=== PATIENT | female | born 1935 | race African-American/Black ===

== ENCOUNTER 2018-10-02 10:07 | Inpatient (IN) | payer OTHER ==
[2018-10-02 12:10] LABS: BASO % 0.5 % (0-2.0); EOS % 0.4 % (0-4.5); HEMATOCRIT 33.3 % (32.4-45.2); HEMOGLOBIN 11.9 GM/dL (10.7-15.3); LYMPH % 12.5 % (8-40); MCH 29.7 pg (25.7-33.7); MCHC 35.9 g/dl (32.0-36.0); MEAN CELL VOLUME 82.7 fl (80-96); MEAN PLT VOLUME 6.8 fl (7.5-11.1); MONO % 5.2 % (3.8-10.2); NEUT % 81.4 % (42.8-82.8); PLATELET COUNT 250 K/MM3 (134-434); RBC 4.02 M/mm3 (3.60-5.2); RDW 13.3 % (11.6-15.6); WHITE BLOOD COUNT 4.8 K/mm3 (4.0-10.0)
[2018-10-02 12:13] LABS: VENOUS PC02 32.4 mmHg (38-52); VENOUS PH 7.49 (7.32-7.42); VENOUS PO2 20.2 mmHg (28-48)
[2018-10-02 12:24] LABS: URINE APPEARANCE SLCLOUDY; URINE BILIRUBIN NEGATIVE (<2.0 mg/dL); URINE COLOR LTYELLOW; URINE GLUCOSE (UA) 3+ (NEGATIVE); URINE KETONE NEGATIVE (NEGATIVE); URINE LEUK ESTERASE 1+ (NEGATIVE); URINE NITRITE NEGATIVE (NEGATIVE); URINE PROTEIN NEGATIVE (NEGATIVE); URINE UROBILINOGEN NEGATIVE mg/dL (0.2-1.0)
[2018-10-02 12:36] LABS: EPI CELLS RARE /HPF (FEW); URINE BACTERIA FEW /hpf (NONE SEEN); URINE MUCUS RARE
--- NOTE | 2018-10-02 13:04 | PDOC ---
History of Present Illness <Michelle Tom - Last Filed: 10/02/18 14:43> - History of Present Illness Initial Comments: 10/02/18 12:55 83 F with h/o HTN, colon CA, DM, presenting to ED with generalized malaise and SOB. Pt states that she started to feel unwell last night. Endorses a "bad" feeling all over but denies any focal pain. Denies N/V. Denies diarrhea/ constipation. Denies CP. She does endorse feeling SOB at times. Denies SOB at rest currently. Denies cough. Denies orthopnea. Denies F/C. Denies any new leg swelling. Per NH, pt's sugars have been poorly controlled recently. She was switched from Lantus to Januvia, and for the past week she has been running in the 300s. <Henri Jalloh - Last Filed: 10/02/18 17:19> - General Chief Complaint: Weakness Stated Complaint: WEAKNESS Time Seen by Provider: 10/02/18 10:13 Past History <Michelle Tom - Last Filed: 10/02/18 14:43> - Past Medical History Cancer: Yes (RECTAL MASS;LIVER METS;GASTRIC NEOPLASM) COPD: No Diabetes: Yes Disorders: Yes (COLON POLYPS) HTN: Yes Thyroid Disease: Yes (THYROID NODULE) - Surgical History Abdominal Surgery: Yes (COLON ANASTOMOSIS) Cholecystectomy: Yes - Suicide/Smoking/Psychosocial Hx Smoking History: Never smoked Hx Alcohol Use: No Drug/Substance Use Hx: No Substance Use Type: None <Henri Jalloh - Last Filed: 10/02/18 17:19> - Past Medical History Allergies/Adverse Reactions: Allergies Allergy/AdvReac Type Severity Reaction Status Date / Time No Known Allergies Allergy Verified 10/02/18 10:18 Home Medications: Ambulatory Orders Furosemide [Lasix -] 40 mg PO DAILY 06/17/16 Triamterene/Hydrochlorothiazid [Triamterene-Hctz 37.5-25 mg Cp] 1 each PO DAILY 06/17/16 Amlodipine Besylate 10 mg PO DAILY 10/02/18 Aspirin 81 mg PO DAILY 10/02/18 Glimepiride 4 mg PO DAILY 10/02/18 Losartan Potassium 100 mg PO DAILY 10/02/18 Sitagliptin Phosphate [Januvia] 50 mg PO DAILY 10/02/18 Review of Systems - Review of Systems Comments:: 10/02/18 12:57 GENERAL/CONSTITUTIONAL: + General malaise, No fever or chills. HEAD, EYES, EARS, NOSE AND THROAT: No change in vision. No ear pain or discharge. No sore throat. CARDIOVASCULAR: No chest pain, no loss of consciousness RESPIRATORY: +SOB, No cough, wheezing, or hemoptysis. GASTROINTESTINAL: No nausea, vomiting, diarrhea or constipation. GENITOURINARY: No dysuria, frequency, or change in urination. MUSCULOSKELETAL: No joint or muscle swelling or pain. No neck or back pain. SKIN: No rash NEUROLOGIC: No vertigo, no change in strength/sensation. ENDOCRINE: No increased thirst. No abnormal weight change. HEMATOLOGIC/LYMPHATIC: No anemia, easy bleeding, or history of blood clots. ALLERGIC/IMMUNOLOGIC: No hives or skin allergy. <Henri Jalloh - Last Filed: 10/02/18 17:19> *Physical Exam - Vital Signs Last Vital Signs Temp Pulse Resp BP Pulse Ox 97.9 F 66 22 H 154/47 L 99 10/02/18 10:07 10/02/18 10:07 10/02/18 10:07 10/02/18 10:07 10/02/18 10:23 <Michelle Tom - Last Filed: 10/02/18 14:43> - Vital Signs Last Vital Signs Temp Pulse Resp BP Pulse Ox 97.9 F 66 22 H 154/47 L 99 10/02/18 10:07 10/02/18 10:07 10/02/18 10:07 10/02/18 10:07 10/02/18 10:23 - Physical Exam Comments: 10/02/18 12:57 "GENERAL: Awake, alert, and fully oriented, in no acute distress. HEAD: No signs of trauma EYES: PERRLA, EOMI, sclera anicteric, conjunctiva clear ENT: Auricles normal inspection, hearing grossly normal, nares patent, oropharynx clear without exudates. Moist mucosa NECK: Nontender, no stepoffs, Normal ROM, supple, no lymphadenopathy, JVD, or masses LUNGS: Breath sounds equal, clear to auscultation bilaterally. No wheezes, and no crackles HEART: Regular rate and rhythm, normal S1 and S2, no murmurs, rubs or gallops ABDOMEN: Soft, nontender, normoactive bowel sounds. No guarding, no rebound. No masses EXTREMITIES: Normal range of motion, no edema. No clubbing or cyanosis. No cords, erythema, or tenderness NEUROLOGICAL: Cranial nerves II through XII intact. 5/5 strength and sensation in all extremities, Normal speech, normal gait, normal cerebellar function SKIN: Warm, Dry, normal turgor, no rashes or lesions noted. <Henri Jalloh - Last Filed: 10/02/18 17:19> Moderate Sedation - Procedure Monitoring Vital Signs: Procedure Monitoring Vital Signs Temperature 97.9 F 10/02/18 10:07 Pulse Rate 66 10/02/18 10:07 Respiratory Rate 22 H 10/02/18 10:07 Blood Pressure 154/47 L 10/02/18 10:07 O2 Sat by Pulse Oximetry (%) 99 10/02/18 10:23 <Michelle Tom - Last Filed: 10/02/18 14:43> - Procedure Monitoring Vital Signs: Procedure Monitoring Vital Signs Temperature 97.9 F 10/02/18 10:07 Pulse Rate 66 10/02/18 10:07 Respiratory Rate 22 H 10/02/18 10:07 Blood Pressure 154/47 L 10/02/18 10:07 O2 Sat by Pulse Oximetry (%) 99 10/02/18 10:23 <YeimiHenri - Last Filed: 10/02/18 17:19> Heart Score/ECG Review - History History: Slightly suspicious - Electrocardiogram EKG: Normal - Age Age: >/= 65 - Risk Factors Risk Factors Heart Score: Yes Hx Hypertension, Yes Hx Diabetes, Yes Hx Obesity Based on the list above the patient has:: >/=3 risk factors or Hx atherosclerotic disease - Troponin Troponin: </= normal limit - Score Heart Score - Total: 4 - ECG Impressions Comment:: 10/02/18 13:13 NSR, no JYOTHI/STDs, no TWIs, intervals wnl, rate 66 <Henri Jalloh - Last Filed: 10/02/18 17:19> ED Treatment Course - LABORATORY CBC & Chemistry Diagram: 10/02/18 11:47 10/02/18 11:47 - ADDITIONAL ORDERS Additional order review: Laboratory Results 10/02/18 10/02/1819 12:30 11:47 11:47 VBG pH 7.49 H POC VBG pCO2 32.4 L POC VBG pO2 20.2 L Mixed VBG HCO3 24.6 Sodium Potassium Chloride Carbon Dioxide Anion Gap BUN Creatinine Creat Clearance w eGFR Random Glucose Calcium Total Bilirubin AST ALT Alkaline Phosphatase Creatine Kinase Troponin I B-Natriuretic Peptide 45.9 Total Protein Albumin Lipase Urine Color Urine Appearance Urine pH Ur Specific [place] Urine Protein Urine Glucose (UA) Urine Ketones Urine Blood Urine Nitrite Urine Bilirubin Urine Urobilinogen Ur Leukocyte Esterase Urine WBC (Auto) Urine RBC (Auto) Ur Epithelial Cells Urine Bacteria Urine Mucus Acetone, Qual Negative L 10/02/18 10/02/18 11:47 11:47 VBG pH POC VBG pCO2 POC VBG pO2 Mixed VBG HCO3 Sodium 114 L* Potassium 5.3 H Chloride 79 L Carbon Dioxide 25 Anion Gap 10 BUN 35 H Creatinine 1.4 H Creat Clearance w eGFR 35.82 Random Glucose 282 H Calcium 9.4 Total Bilirubin 0.5 AST 13 L ALT 13 Alkaline Phosphatase 125 H Creatine Kinase 98 Troponin I < 0.02 B-Natriuretic Peptide Total Protein 7.2 Albumin 3.4 Lipase 582 H Urine Color Ltyellow Urine Appearance Slcloudy Urine pH 6.0 Ur Specific [place] 1.003 L Urine Protein Negative Urine Glucose (UA) 3+ H Urine Ketones Negative Urine Blood 1+ H Urine Nitrite Negative Urine Bilirubin Negative Urine Urobilinogen Negative Ur Leukocyte Esterase 1+ H Urine WBC (Auto) 15 Urine RBC (Auto) 1 Ur Epithelial Cells Rare Urine Bacteria Few Urine Mucus Rare Acetone, Qual 10/02/18 11:47 RBC 4.02 MCV 82.7 MCHC 35.9 RDW 13.3 MPV 6.8 L Neutrophils % 81.4 Lymphocytes % 12.5 D Monocytes % 5.2 Eosinophils % 0.4 Basophils % 0.5 - RADIOLOGY Radiograph Interpretation: 10/02/18 14:44 EXAM#: TYPE/EXAM: RESULT: [id number] RAD/CHEST X-RAY PORTABLE* Chest: Weakness A single AP view the chest reveals clear lungs, normal mediastinum and sharp angles. The bones and soft tissues are intact. Impression: No acute pathology. No comparison studies. Reported By: Micah Elias MD 10/02/18 3900 - Medications Given in the ED: ED Medications Discontinued Medications Generic Name Dose Route Start Last Admin Trade Name Freq PRN Reason Stop Dose Admin Sodium Chloride 1,000 mls @ 1,000 mls/hr 10/02/18 13:21 10/02/18 14:21 Normal Saline - IV 10/02/18 14:20 1,000 mls/hr ASDIR STA Administration Insulin Human Regular 2 units 10/02/18 14:01 10/02/18 14:35 Novolin R Vial *For Ivpush Or Iv Drip Only* IVPUSH 10/02/18 14:02 2 units ONCE ONE Administration <Michelle oTm - Last Filed: 10/02/18 14:43> - LABORATORY CBC & Chemistry Diagram: 10/02/18 11:47 10/02/18 15:35 - ADDITIONAL ORDERS Additional order review: Laboratory Results 10/02/18 10/02/18 10/02/18 11:47 11:47 11:47 VBG pH 7.49 H POC VBG pCO2 32.4 L POC VBG pO2 20.2 L Mixed VBG HCO3 24.6 B-Natriuretic Peptide 45.9 Urine Color Ltyellow Urine Appearance Slcloudy Urine pH 6.0 Ur Specific [place] 1.003 L Urine Protein Negative Urine Glucose (UA) 3+ H Urine Ketones Negative Urine Blood 1+ H Urine Nitrite Negative Urine Bilirubin Negative Urine Urobilinogen Negative Ur Leukocyte Esterase 1+ H Urine WBC (Auto) 15 Urine RBC (Auto) 1 Ur Epithelial Cells Rare Urine Bacteria Few Urine Mucus Rare 10/02/18 11:47 RBC 4.02 MCV 82.7 MCHC 35.9 RDW 13.3 MPV 6.8 L Neutrophils % 81.4 Lymphocytes % 12.5 D Monocytes % 5.2 Eosinophils % 0.4 Basophils % 0.5 - RADIOLOGY Radiology Studies Ordered: Category Date Time Status CHEST PA & LAT [RAD] Stat Radiology 10/02/18 11:14 Ordered <Henri Jalloh - Last Filed: 10/02/18 17:19> Medical Decision Making - Critical Care Time Total Critical Care Time (minutes): 60 Critical Care Statement: The care of this patient involved high complexity decision making to prevent further life threatening deterioration of the patient 's condition and/or to evaluate & treat vital organ system(s) failure or risk of failure. - Medical Decision Making 10/02/18 13:14 83 F with weakness, malaise, and occasional SOB in the context of poorly controlled sugars recently. Will r/o DKA. Also consider infectious process. Pt with no clinical signs of volume overload. EKG with no ischemic changes to suggest ACS. Pt with no PE risk factors, no clinical signs of DVT. - Labs, VBG, ketones - CXR, UA 10/02/18 13:35 Labs notable for Na 114 Pt with glucose 200s Will add on urine sodium and osms Gentle IV hydration for now Renal consulted 10/02/18 13:49 Dr. Garibay consulted, recommends 1L NS bolus, with repeat CMP at 3PM. Pt admitted to hospitalist. Dispo pending repeat labs, tele vs ICU 10/02/18 14:12 Given mildly elevated lipase, will obtain CT to r/o pancreatitis. Cr 1.4, OK to obtain CT with IV contrast 10/02/18 17:10 Repeat Na 118 CTAP shows bladder distention and bilateral hydronephrosis Will insert bernal 10/02/18 17:[address] Garibay, who recommends Q6hr CMPs, pt stable for med/surg <Henri Jalloh - Last Filed: 10/02/18 17:19> *DC/Admit/Observation/Transfer - Attestations Scribe Attestion: 10/02/18 14:44 Documentation prepared by Michelle Tom, acting as center medical director for Henri Jalloh MD <Michelle Tom - Last Filed: 10/02/18 14:43> - Discharge Dispostion Decision to Admit order: Yes - Attestations Physician Attestion: 10/02/18 13:51 I, Dr. Henri Jalloh MD, attest that this document has been prepared under my direction and personally reviewed by me in its entirety. I further attest, that it accurately reflects all work, treatment, procedures and medical decision -making performed by me. <Henri Jalloh - Last Filed: 10/02/18 17:19> Diagnosis at time of Disposition: Hyponatremia - Referrals Referrals: Roxanne Crump MD [Primary Care Provider] - - Patient Instructions - Post Discharge Activity
[2018-10-02 13:12] LABS: ALBUMIN 3.4 g/dl (3.4-5.0); ALK PHOS 125 U/L (45-117); ANION GAP 10 MMOL/L (8-16); BILIRUBIN,TOTAL 0.5 mg/dL (0.2-1); BLOOD UREA NITROGEN 35 mg/dL (7-18); CALCIUM 9.4 mg/dL (8.5-10.1); CHLORIDE 79 mmol/L (98-107); CO2 25 mmol/L (21-32); CREATININE 1.4 mg/dL (0.55-1.3); GLUCOSE,RANDOM 282 mg/dL (74-106); LIPASE 582 U/L (73-393); POTASSIUM 5.3 mmol/L (3.5-5.1); SGOT/AST 13 U/L (15-37); SGPT/ALT 13 U/L (13-61); TOT PROT 7.2 g/dl (6.4-8.2)
[2018-10-02 13:21] LABS: SODIUM 114 mmol/L (136-145)
[2018-10-02] MEDS ORDERED: SODIUM CHLORIDE 1,000 ML IV STA (13:21)
[2018-10-02] MEDS ORDERED: INSULIN REGULAR HUMAN 100 UNITS/ML *VIAL IVPUSH ONE (14:01)
--- NOTE | 2018-10-02 14:09 | CONSULT ---
Consult - text type - Consultation Consultation Note: Renal Consult for Hyponatremia This is a 83 year old woman with hx of Hypertension, DM, hx of colon ca who presented with complaints of generalized weakness and cough and found to have serum Na of 114. Pt states that she does not feel well but not specific about her symptoms. Feels fatigued. Denies any N/V/D. No MCGUIRE, confusion, seizures, lethargy. Reports poor oral intake for the last 2 days. Has been compliant with all medications. Pt was on several diuretics at home. Serum Na was 144 on 07/14/2018 and Cr was 0.68 on the same date (obtained from outpatient records) PMhx: as above Allergies: NKDA Family Hx: NC Social Hx: no T/A/D ROS: as per HPI Home Medications Medication Instructions Recorded Furosemide [Lasix -] 40 mg PO DAILY 06/17/16 Glyburide/Metformin HCl 1 each PO DAILY 06/17/16 [Glyburide-Metformin 2.5-500 mg] Labetalol HCl 300 mg PO DAILY 06/17/16 Nifedipine ER [Procardia XL -] 60 mg PO DAILY 06/17/16 Triamterene/Hydrochlorothiazid 1 each PO DAILY 06/17/16 [Triamterene-Hctz 37.5-25 mg Cp] Valsartan [Diovan] 320 mg PO DAILY 06/17/16 Vital Signs Temperature 97.9 F 10/02/18 10:07 Pulse Rate 66 10/02/18 10:07 Respiratory Rate 22 H 10/02/18 10:07 Blood Pressure 154/47 L 10/02/18 10:07 O2 Sat by Pulse Oximetry (%) 99 10/02/18 10:23 Intake & Output 09/29/18 09/30/18 10/01/18 10/02/18 23:59 23:59 23:59 23:59 Weight 84.822 kg CBC, BMP 10/02/18 11:47 10/02/18 11:47 Current Medications Sodium Chloride (Normal Saline -) 1,000 mls @ 1,000 mls/hr IV ASDIR STA Stop: 10/02/18 14:20 83 year old woman with hx of Hypertension, DM, hx of colon ca who presented with complaints of generalized weakness and cough and found to have serum Na of 114. #Hyponatremia likely do to hypovolemia in setting of multiple diuretics #NABIL due to volume depletion +/- renal hypoprofuison in setting of ARB #Hypertension #DM Check Urine and serum OSM as well as Urine Na Check TSH and AM Cortisol Would continue istonic saline infusion for now, repeat labs in 1-2 hours no emergent indication for 3% saline would hold all diuretics and ARB BP high but would monitor for now if BP consistently > 150/90 can restart nifedipine ER Monitor fingersticks, Insulin as needed Thank you Will follow Krish Garibay DO
--- NOTE | 2018-10-02 14:37 | PN ---
Teaching Attending Note Name of Resident: Patricia King ATTENDING PHYSICIAN STATEMENT I saw and evaluated the patient. I reviewed the resident's note and discussed the case with the resident. I agree with the resident's findings and plan as documented with exceptions below. SUBJECTIVE: 83 yof with PMhx of ?Colon Ca s/p sigmoid resection/hepatic lesions,? Multinodular goiter, HTN, type II DM (recently changed from lantus to glimepiride/januvia on 09/21/2018 due to difficulty administering), comes with generalized weakness, malaise and 'bad feeling' about herself. Patient reports minimal PO intake last 2 days, even prior that her PO intake is dependent on if she is able to cook or family brings in food and has been unreliable. 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 Denies any fevers, chills, diarrhea, abdominal pain, nausea, vomiting, recent URI like illness, sick contacts, antibiotics, medication changes except above. 12 point ROS done, neg for chest, dyspnea, palpitations, dizziness or new concerns. OBJECTIVE: Vital Signs Period Temp Pulse Resp BP Sys/King Pulse Ox Last 24 Hr 97.9 F 66 22 154/47 99-99 Intake & Output 09/29/18 09/30/18 10/01/18 10/02/18 23:59 23:59 23:59 23:59 Weight 187 lb GENERAL: Awake, alert, and fully oriented, in no acute distress. HEAD: Normal with no signs of trauma. EYES: Pupils equal, round and reactive to light, extraocular movements intact, sclera anicteric, conjunctiva clear. No lid lag. EARS, NOSE, THROAT: Ears normal, nares patent, oropharynx clear without exudates. dry skin and mucous membranes. NECK: Soft, supple, no JVD LUNGS: Breath sounds equal, clear to auscultation bilaterally. No wheezes, and no crackles. No accessory muscle use. HEART: S1S2 regular rate rhythm ABDOMEN: Soft, distended NT throughout, no voluntary or involuntary guarding or rigidity MUSCULOSKELETAL: Normal range of motion at all joints. No bony deformities or tenderness. No CVA tenderness. UPPER EXTREMITIES: 2+ pulses, warm, well-perfused. No cyanosis. No clubbing. No peripheral edema. LOWER EXTREMITIES: 2+ pulses, warm, well-perfused. No calf tenderness. No peripheral edema. NEUROLOGICAL: AAOx3, power 5/5 generalized, sensation intact symmetric to light touch, facial symmetry, toes down going, PSYCHIATRIC: Cooperative. Good eye contact. Appropriate mood and affect. SKIN: Warm, dry, normal turgor, no rashes or lesions noted, normal capillary refill. Home Medications Medication Instructions Recorded Furosemide [Lasix -] 40 mg PO DAILY 06/17/16 Triamterene/Hydrochlorothiazid 1 each PO DAILY 06/17/16 [Triamterene-Hctz 37.5-25 mg Cp] Amlodipine Besylate 10 mg PO DAILY 10/02/18 Glimepiride 4 mg PO DAILY 10/02/18 Losartan Potassium 100 mg PO DAILY 10/02/18 Sitagliptin Phosphate [Januvia] 50 mg PO DAILY 10/02/18 Laboratory Results - last 24 hr 10/02/18 10/02/18 10/02/18 11:47 11:47 11:47 WBC 4.8 RBC 4.02 Hgb 11.9 Hct 33.3 MCV 82.7 MCH 29.7 MCHC 35.9 RDW 13.3 Plt Count 250 MPV 6.8 L Absolute Neuts (auto) 3.9 Neutrophils % 81.4 Lymphocytes % 12.5 D Monocytes % 5.2 Eosinophils % 0.4 Basophils % 0.5 Nucleated RBC % 0 VBG pH POC VBG pCO2 POC VBG pO2 Mixed VBG HCO3 Sodium 114 L* Potassium 5.3 H Chloride 79 L Carbon Dioxide 25 Anion Gap 10 BUN 35 H Creatinine 1.4 H Creat Clearance w eGFR 35.82 Random Glucose 282 H Calcium 9.4 Total Bilirubin 0.5 AST 13 L ALT 13 Alkaline Phosphatase 125 H Creatine Kinase 98 Troponin I < 0.02 B-Natriuretic Peptide Total Protein 7.2 Albumin 3.4 Lipase 582 H Urine Color Ltyellow Urine Appearance Slcloudy Urine pH 6.0 Ur Specific [place] 1.003 L Urine Protein Negative Urine Glucose (UA) 3+ H Urine Ketones Negative Urine Blood 1+ H Urine Nitrite Negative Urine Bilirubin Negative Urine Urobilinogen Negative Ur Leukocyte Esterase 1+ H Urine WBC (Auto) 15 Urine RBC (Auto) 1 Ur Epithelial Cells Rare Urine Bacteria Few Urine Mucus Rare Acetone, Qual 10/02/18 10/02/18 10/02/18 11:47 11:47 12:30 WBC RBC Hgb Hct MCV MCH MCHC RDW Plt Count MPV Absolute Neuts (auto) Neutrophils % Lymphocytes % Monocytes % Eosinophils % Basophils % Nucleated RBC % VBG pH 7.49 H POC VBG pCO2 32.4 L POC VBG pO2 20.2 L Mixed VBG HCO3 24.6 Sodium Potassium Chloride Carbon Dioxide Anion Gap BUN Creatinine Creat Clearance w eGFR Random Glucose Calcium Total Bilirubin AST ALT Alkaline Phosphatase Creatine Kinase Troponin I B-Natriuretic Peptide 45.9 Total Protein Albumin Lipase Urine Color Urine Appearance Urine pH Ur Specific [place] Urine Protein Urine Glucose (UA) Urine Ketones Urine Blood Urine Nitrite Urine Bilirubin Urine Urobilinogen Ur Leukocyte Esterase Urine WBC (Auto) Urine RBC (Auto) Ur Epithelial Cells Urine Bacteria Urine Mucus Acetone, Qual Negative L CXR - no acute process EKG NSR, no acute ST-T changes ASSESSMENT AND PLAN: 83 yof with PMHx of HTN, type II DM, ?colon cancer s/p sigmoid resection/ hepatic lesions (?treatment) admitted with weakness found with severe hyponatremia and NABIL. -Severe hyponatremia, suspect hypovolumic from poor oral intake/diuretics/ hyperglycemia (last Na in 07/2018 144) -ANBIL, likely from above -Hyperkalemia, likely from NABIL/ARB/triamterene -HTN -Type II DM, reportedly taken off lantus this month -?colon cancer s/p sigmoid resection/Hepatic lesions Plan: Nephrology consulted, discussed with Dr. Garibay. 1L IVF bolus, repeat BMP, if improved, plan for hydration and admit to telemetry. If unchanged, will need hypertonic saline and ICU Hold triamterene/HCTZ/ARB/Lasix No focal s/s concerning for infectious process currently, monitor. CT A/p, retrieve prior malignancy history from PCP (office called) Continue Amlodipine ISS, hold oral hypoglycemics. reportedly patient taken off lantus this month as unable to administer herself DVTPPX heparin Dispo pending clinical improvement. Plan discussed with patient in detail, all questions answered. Care co-ordinated with nephrology/ED. [facility] called, meds reconciled. Total admit time spent 65 min.
[2018-10-02] MEDS ORDERED: INSULIN (NOVOLOG) ASPART 100 UNITS/ML 10ML VIAL ONE ×2 (14:38→16:52)
--- NOTE | 2018-10-02 15:40 | HP ---
CHIEF COMPLAINT: Shortness of breath PCP: Dr. Crump GI: Dr. Carrington Oncologist: Dr. 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 Patient reports she felt "lousy" with this shortness of breath for the past two days associated with poor oral intake. States she usually walks with a walker but has been unable to move in the last couple of days. States today the weakness and shortness of breath significantly increased, which prompted her to call EMS and prompted this hospital visit. Patient reports going to a [facility] care three times a week for at leas 5 hours and is unsure if she is around any sick contacts. Patient on several diuretics at home and reports recent changes to her medications. Otherwise, patient denies any chest pain, palpitations, shortness of breath, fever, chills, nausea, vomiting, diarrhea, constipation, acute vision changes, urinary or bowel symptoms, numbness, tingling, or seizure activity. In the ED, labs revealed severe hyponatremia of 114. Patient also found to have distended abdomen. Nephrology contacted and recommended 1L IV NS. 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), multinodular goiter PAST SURGICAL HISTORY: Sigmoid resection (2011) Social History: Smoking: Denies Alcohol: Denies Drugs: Denies Lives home alone Goes to a [employer] three times a week Family History: Non-contributory Allergies: No Known Allergies Allergy (Verified 10/02/18 10:18) HOME MEDICATIONS: Home Medications Medication Instructions Recorded Furosemide [Lasix -] 40 mg PO DAILY 06/17/16 Triamterene/Hydrochlorothiazid 1 each PO DAILY 06/17/16 [Triamterene-Hctz 37.5-25 mg Cp] Amlodipine Besylate 10 mg PO DAILY 10/02/18 Glimepiride 4 mg PO DAILY 10/02/18 Losartan Potassium 100 mg PO DAILY 10/02/18 Sitagliptin Phosphate [Januvia] 50 mg PO DAILY 10/02/18 REVIEW OF SYSTEMS CONSTITUTIONAL: generalized weakness, malaise Absent: fever, chills, diaphoresis, loss of appetite, weight change HEENT: Absent: rhinorrhea, nasal congestion, throat pain, throat swelling, difficulty swallowing, mouth swelling, ear pain, eye pain, visual changes CARDIOVASCULAR: Absent: chest pain, syncope, palpitations, irregular heart rate, lightheadedness , peripheral edema RESPIRATORY: shortness of breath Absent: cough, dyspnea with exertion, orthopnea, wheezing, stridor, hemoptysis GASTROINTESTINAL: abdominal distension Absent: abdominal pain, nausea, vomiting, diarrhea, constipation, melena, hematochezia GENITOURINARY: Absent: dysuria, frequency, urgency, hesitancy, hematuria, flank pain, genital pain MUSCULOSKELETAL: Absent: myalgia, arthralgia, joint swelling, back pain, neck pain SKIN: Absent: rash, itching, pallor HEMATOLOGIC/IMMUNOLOGIC: Absent: easy bleeding, easy bruising, lymphadenopathy, frequent infections ENDOCRINE: Absent: unexplained weight gain, unexplained weight loss, heat intolerance, cold intolerance NEUROLOGIC: Absent: headache, focal weakness or paresthesias, dizziness, unsteady gait, seizure, mental status changes, bladder or bowel incontinence PSYCHIATRIC: Absent: anxiety, depression, suicidal or homicidal ideation, hallucinations. PHYSICAL EXAMINATION Vital Signs - 24 hr 10/02/18 10/02/18 10:07 10:23 Temperature 97.9 F Pulse Rate 66 Respiratory 22 H Rate Blood Pressure 154/47 L O2 Sat by Pulse 99 99 Oximetry (%) GENERAL: Awake, alert, and fully oriented, in no acute distress. HEAD: Normal with no signs of trauma. EYES: Pupils equal, round and reactive to light, extraocular movements intact, sclera anicteric, conjunctiva clear. No lid lag. EARS, NOSE, THROAT: Oropharynx clear without exudates. Dry mucous membranes. NECK: Normal range of motion, supple without lymphadenopathy, JVD. LUNGS: Breath sounds equal, clear to auscultation bilaterally. No wheezes, and no crackles. No accessory muscle use. HEART: Regular rate and rhythm, normal S1 and S2 without murmur, rub or gallop. ABDOMEN: Soft, nontender, (+) Distended, normoactive bowel sounds, no guarding, no rebound, no masses. No hepatomegaly or splenomegaly. MUSCULOSKELETAL: No CVA tenderness. UPPER EXTREMITIES: No peripheral edema. LOWER EXTREMITIES: No peripheral edema. NEUROLOGICAL: Cranial nerves II-XII intact. Normal speech PSYCHIATRIC: Cooperative. Good eye contact. Appropriate mood and affect. SKIN: Warm, dry, normal turgor, no rashes or lesions noted, normal capillary refill. Laboratory Results 10/02/18 11:47 10/02/18 15:35 10/02/18 11:47 AST 13 L ALT 13 Alkaline Phosphatase 125 H Troponin I < 0.02 Lipase 582 H ASSESSMENT/PLAN: Patient is an 83 year old female who presented for weakness and shortness of breath. Patient was found to have a serum sodium level of 114 and admitted for further monitoring and management. #Severe Hypovolemic Hyponatremia -In the setting of multiple diuretics, poor oral intake, and hyperglycemia -Sodium 144 on 07/2018 -TSH, cortisol, urine and serum osm, urine electrolytes -Continue Isotonic infusion with NS -Hold all diuretics -No emergent indication for 3% saline -Continue to Repeat BMP #NABIL -Likely from hypovolemia -Continue IV fluids -Urine lytes ordered -Continue to monitor #Hyperkalemia -Likely from NABIL and the setting of multiple diuretics -Continue to monitor with repeat BMP #Abdominal Distention -CT abdomen ordered and revealed bladder over distention with bilateral hydroureteronephrosis -Possibly the cause of hyponatremia from obstruction -Coyle catheter ordered #HTN -Currently controlled -If BP consistently >150/90 can restart nifedipine ER -Continue to monitor BP #IDDMII -Currently taken off Lantus this month -Hold all oral medications -BGM -ISS #Diastolic CHF -Echo unremarkable 04/2017 -Chest X-ray no acute pathology -Lasix on hold #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 -CT abdomen here revealed hepatic lesion. -Last PET 04/2018 with progression of disease. -Patient was advised follow up with Dr. Galicia, reportedly has not seen her yet and IR input for possible chemoembolization/Biopsy for systemic therapy. F/E/N -IV NS @50mls/hr -Hyperkalemia -Regular diet Prophylaxis -Heparin 5000 units sq TID for DVT -No GI required Disposition -Full code. States HCP is her grand daughter on record -Telemetry monitoring. Continue to follow BMP Patricia Hijaz, MD-[id number] Visit type - Emergency Visit Emergency Visit: Yes ED Registration Date: 10/02/18 Care time: The patient presented to the Emergency Department on the above date and was hospitalized for further evaluation of their emergent condition. - New Patient This patient is new to me today: Yes Date on this admission: 10/05/18 - Critical Care Critical Care patient: Yes Total Critical Care Time (in minutes): 45 Critical Care Statement: The care of this patient involved high complexity decision making to prevent further life threatening deterioration of the patient 's condition and/or to evaluate & treat vital organ system(s) failure or risk of failure.
[2018-10-02] MEDS: amLODIPine BESYLATE 10 MG TABLET (FP) PO SCH (16:30)
[2018-10-02] MEDS ORDERED: amLODIPine BESYLATE 5 MG TABLET (FP) ONE ×2 (16:31→16:43)
[2018-10-02] MEDS: INSULIN SLIDING SCALE (NOVOLOG) 1 VIAL SQ SCH ×2 (16:48→22:29)
[2018-10-02] MEDS ORDERED: INSULIN REGULAR HUMAN 100 UNITS/ML *VIAL ONE (16:51)
[2018-10-02 16:52] LABS: ALBUMIN 3.4 g/dl (3.4-5.0); ALK PHOS 123 U/L (45-117); BILIRUBIN,TOTAL 0.7 mg/dL (0.2-1); BLOOD UREA NITROGEN 34 mg/dL (7-18); CALCIUM 9.3 mg/dL (8.5-10.1); CHLORIDE 84 mmol/L (98-107); CO2 24 mmol/L (21-32); CREATININE 1.2 mg/dL (0.55-1.3); GLUCOSE,RANDOM 197 mg/dL (74-106); SGPT/ALT 12 U/L (13-61); TOT PROT 7.2 g/dl (6.4-8.2)
[2018-10-02 16:53] LABS: ANION GAP 10 MMOL/L (8-16); POTASSIUM 4.9 mmol/L (3.5-5.1); SGOT/AST 25 U/L (15-37)
[2018-10-02 16:59] LABS: SODIUM 118 mmol/L (136-145)
[2018-10-02] MEDS ORDERED: SODIUM CHLORIDE 1,000 ML IV SCH (17:45)
[2018-10-02 18:04] LABS: URIC ACID 5.4 mg/dL (2.6-7.2)
--- NOTE | 2018-10-02 20:17 | EKG ---
Test Reason : Blood Pressure : / mmHG Vent. Rate : 066 BPM Atrial Rate : 066 BPM P-R Int : 162 ms QRS Dur : 102 ms QT Int : 402 ms P-R-T Axes : 076 -26 041 degrees QTc Int : 421 ms NORMAL SINUS RHYTHM NORMAL ECG WHEN COMPARED WITH ECG OF 04-JAN-2006 13:52, NO SIGNIFICANT CHANGE WAS FOUND Confirmed by COLT BLACK MD ([id number]) on 10/02/2018 8:17:16 PM Referred By: Confirmed By:COLT BLACK MD
[2018-10-02] MEDS ORDERED: MUPIROCIN 2% TOPICAL OINTMENT FOR DECOLONIZATION NS SCH (22:00)
[2018-10-02] MEDS ORDERED: CHLORHEXIDINE GLUCONATE 4% CLEANSER FOR DECOLONIZATION TP SCH (22:00)
[2018-10-02 22:06] LABS: ANION GAP 10 MMOL/L (8-16); BLOOD UREA NITROGEN 29 mg/dL (7-18); CALCIUM 9.1 mg/dL (8.5-10.1); CHLORIDE 89 mmol/L (98-107); CO2 27 mmol/L (21-32); CREATININE 1.1 mg/dL (0.55-1.3); GLUCOSE,RANDOM 84 mg/dL (74-106); POTASSIUM 3.8 mmol/L (3.5-5.1); SODIUM 126 mmol/L (136-145)
[2018-10-02] MEDS: HEPARIN NA (PORCINE) 5,000 UNITS/ML 1ML VIAL SQ SCH (22:30)
[2018-10-02] MEDS ORDERED: ZINC OXIDE/PETROLATUM,WHITE 1 APPLIC OINT...G. TP PRN (23:52)
[2018-10-03] MEDS: HEPARIN NA (PORCINE) 5,000 UNITS/ML 1ML VIAL SQ SCH ×3 (05:16→22:02)
[2018-10-03] MEDS: INSULIN SLIDING SCALE (NOVOLOG) 1 VIAL SQ SCH ×4 (06:24→21:58)
[2018-10-03 06:45] LABS: BASO % 0.4 % (0-2.0); EOS % 1.8 % (0-4.5); HEMATOCRIT 33.1 % (32.4-45.2); HEMOGLOBIN 11.7 GM/dL (10.7-15.3); LYMPH % 20.5 % (8-40); MCH 29.7 pg (25.7-33.7); MCHC 35.5 g/dl (32.0-36.0); MEAN CELL VOLUME 83.8 fl (80-96); MEAN PLT VOLUME 6.8 fl (7.5-11.1); MONO % 8.2 % (3.8-10.2); NEUT % 69.1 % (42.8-82.8); PLATELET COUNT 245 K/MM3 (134-434); RBC 3.95 M/mm3 (3.60-5.2); RDW 13.5 % (11.6-15.6); WHITE BLOOD COUNT 4.9 K/mm3 (4.0-10.0)
[2018-10-03 07:34] LABS: ALBUMIN 3.1 g/dl (3.4-5.0); ALK PHOS 116 U/L (45-117); ANION GAP 9 MMOL/L (8-16); BILIRUBIN,TOTAL 0.5 mg/dL (0.2-1); BLOOD UREA NITROGEN 31 mg/dL (7-18); CALCIUM 8.6 mg/dL (8.5-10.1); CHLORIDE 91 mmol/L (98-107); CO2 27 mmol/L (21-32); CREATININE 1.1 mg/dL (0.55-1.3); GLUCOSE,RANDOM 192 mg/dL (74-106); PHOSPHOROUS 3.5 mg/dL (2.5-4.9); POTASSIUM 4.3 mmol/L (3.5-5.1); SGOT/AST 19 U/L (15-37); SGPT/ALT 18 U/L (13-61); SODIUM 126 mmol/L (136-145); TOT PROT 6.4 g/dl (6.4-8.2)
[2018-10-03] MEDS: amLODIPine BESYLATE 10 MG TABLET (FP) PO SCH (10:56)
--- NOTE | 2018-10-03 12:41 | PN ---
Physical Exam: SUBJECTIVE: Patient seen and examined, overall feels, better, appetite improved , weakness improved today. No abdominal or back pain or urinary symptoms. OBJECTIVE: Vital Signs Period Temp Pulse Resp BP Sys/King Pulse Ox Last 24 Hr 98.1 F-98.7 F 67-82 2-20 121-158/51-113 99-99 GENERAL: sitting in bed in no acute distress Laboratory Results - last 24 hr 10/02/18 10/02/18 10/02/18 11:47 11:47 12:30 WBC RBC Hgb Hct MCV MCH MCHC RDW Plt Count MPV Absolute Neuts (auto) Neutrophils % Lymphocytes % Monocytes % Eosinophils % Basophils % Nucleated RBC % Sodium 114 L* Potassium 5.3 H Chloride 79 L Carbon Dioxide 25 Anion Gap 10 BUN 35 H Creatinine 1.4 H Creat Clearance w eGFR 35.82 POC Glucometer Random Glucose 282 H Hemoglobin A1c % Serum Osmolality Uric Acid Calcium 9.4 Phosphorus Magnesium Total Bilirubin 0.5 AST 13 L ALT 13 Alkaline Phosphatase 125 H Creatine Kinase 98 Troponin I < 0.02 B-Natriuretic Peptide 45.9 Total Protein 7.2 Albumin 3.4 Lipase 582 H TSH Urine Osmolality Ur Random Sodium Acetone, Qual Negative L 10/02/18 10/02/18 10/02/18 15:35 15:35 16:41 WBC RBC Hgb Hct MCV MCH MCHC RDW Plt Count MPV Absolute Neuts (auto) Neutrophils % Lymphocytes % Monocytes % Eosinophils % Basophils % Nucleated RBC % Sodium 118 L* Potassium 4.9 Chloride 84 L Carbon Dioxide 24 Anion Gap 10 BUN 34 H Creatinine 1.2 Creat Clearance w eGFR 42.80 POC Glucometer Random Glucose 197 H Hemoglobin A1c % Serum Osmolality 261 L Uric Acid 5.4 Calcium 9.3 Phosphorus Magnesium Total Bilirubin 0.7 AST 25 ALT 12 L Alkaline Phosphatase 123 H Creatine Kinase Troponin I B-Natriuretic Peptide Total Protein 7.2 Albumin 3.4 Lipase TSH 0.57 Urine Osmolality 177 L Ur Random Sodium 25 L Acetone, Qual 10/02/18 10/02/18 10/03/18 21:30 22:28 05:21 WBC RBC Hgb Hct MCV MCH MCHC RDW Plt Count MPV Absolute Neuts (auto) Neutrophils % Lymphocytes % Monocytes % Eosinophils % Basophils % Nucleated RBC % Sodium 126 L Potassium 3.8 Chloride 89 L Carbon Dioxide 27 Anion Gap 10 BUN 29 H Creatinine 1.1 Creat Clearance w eGFR 47.32 POC Glucometer 100 253 Random Glucose 84 Hemoglobin A1c % Serum Osmolality Uric Acid Calcium 9.1 Phosphorus Magnesium Total Bilirubin AST ALT Alkaline Phosphatase Creatine Kinase Troponin I B-Natriuretic Peptide Total Protein Albumin Lipase TSH Urine Osmolality Ur Random Sodium Acetone, Qual 10/03/18 10/03/18 10/03/18 05:30 05:30 05:30 WBC 4.9 RBC 3.95 Hgb 11.7 Hct 33.1 MCV 83.8 MCH 29.7 MCHC 35.5 RDW 13.5 Plt Count 245 MPV 6.8 L Absolute Neuts (auto) 3.4 Neutrophils % 69.1 Lymphocytes % 20.5 D Monocytes % 8.2 Eosinophils % 1.8 D Basophils % 0.4 Nucleated RBC % 0 Sodium 126 L Potassium 4.3 Chloride 91 L Carbon Dioxide 27 Anion Gap 9 BUN 31 H Creatinine 1.1 Creat Clearance w eGFR 47.32 POC Glucometer Random Glucose 192 H Hemoglobin A1c % 12.2 H Serum Osmolality Uric Acid Calcium 8.6 Phosphorus 3.5 Magnesium 2.0 Total Bilirubin 0.5 AST 19 ALT 18 Alkaline Phosphatase 116 Creatine Kinase Troponin I B-Natriuretic Peptide Total Protein 6.4 Albumin 3.1 L Lipase TSH Urine Osmolality Ur Random Sodium Acetone, Qual 10/03/18 12:18 WBC RBC Hgb Hct MCV MCH MCHC RDW Plt Count MPV Absolute Neuts (auto) Neutrophils % Lymphocytes % Monocytes % Eosinophils % Basophils % Nucleated RBC % Sodium Potassium Chloride Carbon Dioxide Anion Gap BUN Creatinine Creat Clearance w eGFR POC Glucometer 193 Random Glucose Hemoglobin A1c % Serum Osmolality Uric Acid Calcium Phosphorus Magnesium Total Bilirubin AST ALT Alkaline Phosphatase Creatine Kinase Troponin I B-Natriuretic Peptide Total Protein Albumin Lipase TSH Urine Osmolality Ur Random Sodium Acetone, Qual Active Medications Generic Name Dose Route Start Last Admin Trade Name Freq PRN Reason Stop Dose Admin Amlodipine Besylate 10 mg 10/02/18 16:00 10/03/18 10:56 Norvasc - PO 10 mg DAILY [facility] Administration Heparin Sodium (Porcine) 5,000 unit 10/02/18 22:00 10/03/18 05:16 Heparin - SQ 5,000 unit TID [facility]ACK Administration Sodium Chloride 1,000 mls @ 50 mls/hr 10/02/18 17:45 10/02/18 18:14 Normal Saline - IV 10/03/18 17:31 50 mls/hr ASDIR [facility] Administration Insulin Aspart 1 vial 10/02/18 16:30 10/03/18 12:36 Novolog Vial Sliding Scale - SQ 2 units ACHS ZACK Administration Protocol Petrolatum 1 applic 10/02/18 23:52 10/03/18 00:03 Sensi-Care Protective Ointment TP 1 applic PRN PRN Administration HYGEINE CT A/P results reviewed ASSESSMENT/PLAN: 83 yof with PMHx of HTN, type II DM, ?colon cancer s/p sigmoid resection/ hepatic lesions (?treatment) admitted with weakness found with severe hyponatremia and NABIL. -Severe hyponatremia, suspect hypovolumic from poor oral intake/diuretics/ hyperglycemia (last Na in 07/2018 144) -NABIL, likely from above -Hyperkalemia, likely from NABIL/ARB/triamterene -Urinary retention with bilateral hydroureteronephrosis -Progressive hepatic lesions, ?metastatic vs primary HCC (H/o SBRT 2016, with progression, being followed with heme/onc) -Colon ca s/p sigmoid resection (GIST Tumor resection in 2011) -HTN -Type II DM, reportedly taken off lantus this month Plan: Na improved. NS at 50 ml/hr, repeat BMP later today. Follow up with nephrology.Continue to hold triamterene/HCTZ/ARB/Lasix. Urology input. Repeat renal US in 24-48 hours post bernal to see if hydroureteronephrosis has improved. ISS, hold oral hypoglycemics. reportedly patient taken off lantus this month as unable to administer herself. resume lantus while inhouse if blood sugars continue to rise. Change to diabetic diet. Patient reports wanting conservative management for her hepatic lesions, reportedly advised surgery which she is not interested in but amenable to local treatment. Defer further w/u to PCP/oncology. Additional metastatic work up inhouse if Na fails to normalize. DVTPPX heparin Dispo pending clinical improvement. PT adela. D/c telemetry. transfer to [facility]. Plan discussed with patient and nursing in detail, all questions answered. Visit type - Emergency Visit Emergency Visit: Yes ED Registration Date: 10/02/18 Care time: The patient presented to the Emergency Department on the above date and was hospitalized for further evaluation of their emergent condition. - New Patient This patient is new to me today: No - Critical Care Critical Care patient: No - Discharge Referral Referred to [facility] No
--- NOTE | 2018-10-03 16:48 | PN ---
Progress Note (short form) - Note Progress Note: 83 year old f Hypertension, DM, hx of colon ca admitted with generalized weakness found to have serum Na of 114. Active Medications Amlodipine Besylate (Norvasc -) 10 mg PO DAILY [facility] Last Admin: 10/03/18 10:56 Dose: 10 mg Heparin Sodium (Porcine) (Heparin -) 5,000 unit SQ TID [facility] Last Admin: 10/03/18 05:16 Dose: 5,000 unit Sodium Chloride (Normal Saline -) 1,000 mls @ 50 mls/hr IV ASDIR [facility] Stop: 10/03/18 17:31 Last Admin: 10/02/18 18:14 Dose: 50 mls/hr Insulin Aspart (Novolog Vial Sliding Scale -) 1 vial SQ ACHS [facility]; Protocol Last Admin: 10/03/18 12:36 Dose: 2 units Petrolatum (Sensi-Care Protective Ointment) 1 applic TP PRN PRN PRN Reason: [facility]GEINE Last Admin: 10/03/18 00:03 Dose: 1 applic Last Vital Signs Temp Pulse Resp BP Pulse Ox 98.2 F 76 18 150/59 L 99 10/03/18 14:00 10/03/18 14:00 10/03/18 14:00 10/03/18 14:00 10/03/18 09:00 Lungs clear Heart reg Abd soft nontender CBC, BMP 10/03/18 05:30 10/03/18 05:30 IMP -Hyponatremia -hypovolemia/ multiple diuretics -NABIL due to volume depletion +/- renal hypoprofuison in setting of ARB -Hypertension -DM Plan- same rx
[2018-10-03 18:18] LABS: ANION GAP 9 MMOL/L (8-16); BLOOD UREA NITROGEN 28 mg/dL (7-18); CALCIUM 8.9 mg/dL (8.5-10.1); CHLORIDE 95 mmol/L (98-107); CO2 26 mmol/L (21-32); CREATININE 1.1 mg/dL (0.55-1.3); GLUCOSE,RANDOM 179 mg/dL (74-106); POTASSIUM 4.4 mmol/L (3.5-5.1); SODIUM 130 mmol/L (136-145)
[2018-10-04] MEDS: INSULIN SLIDING SCALE (NOVOLOG) 1 VIAL SQ SCH ×4 (06:23→22:03)
[2018-10-04] MEDS: HEPARIN NA (PORCINE) 5,000 UNITS/ML 1ML VIAL SQ SCH ×3 (06:23→22:04)
[2018-10-04 08:00] LABS: ALK PHOS 117 U/L (45-117); ANION GAP 9 MMOL/L (8-16); BLOOD UREA NITROGEN 21 mg/dL (7-18); CALCIUM 8.5 mg/dL (8.5-10.1); CHLORIDE 99 mmol/L (98-107); CO2 26 mmol/L (21-32); CREATININE 0.9 mg/dL (0.55-1.3); GLUCOSE,RANDOM 130 mg/dL (74-106); MAGNESIUM 1.8 mg/dL (1.8-2.4); POTASSIUM 4.4 mmol/L (3.5-5.1); SGOT/AST 17 U/L (15-37); SGPT/ALT 17 U/L (13-61); SODIUM 134 mmol/L (136-145); TOT PROT 6.3 g/dl (6.4-8.2)
[2018-10-04] MEDS: amLODIPine BESYLATE 10 MG TABLET (FP) PO SCH (09:30)
[2018-10-04] MEDS ORDERED: DEXTROSE 5%-WATER - 50 ML IVPB ONE (10:53)
[2018-10-04] MEDS ORDERED: cefTRIAXone SODIUM 1 GM VIAL ONE (10:53)
--- NOTE | 2018-10-04 10:55 | PN ---
Physical Exam: SUBJECTIVE: Patient seen and examined, unchanged vague abdominal pain, no fevers , chills, tolerating diet well. weakness improved. OBJECTIVE: Vital Signs Period Temp Pulse Resp BP Sys/King Pulse Ox Last 24 Hr 98.2 F-99.4 F 73-85 18-20 114-150/50-72 98-100 GENERAL: The patient is awake, alert, and fully oriented, in no acute distress. HEAD: Normal with no signs of trauma. EYES: PERRL, extraocular movements intact, sclera anicteric, conjunctiva clear. No ptosis. ENT: Ears normal, nares patent, oropharynx clear without exudates, moist mucous membranes. NECK: Trachea midline, full range of motion, supple. LUNGS: Breath sounds equal, clear to auscultation bilaterally, no wheezes, no crackles, no accessory muscle use. HEART: S1S2 regular ABDOMEN: Soft,unchanged distension, vague tenderness in jazmine-umbilical area and mild suprapubic tenderness, no voluntary or involuntary guarding or rigidity, positive bowel sounds EXTREMITIES:no pedal edema PSYCH: Normal mood, normal affect. SKIN: Warm, dry, normal turgor, no rashes or lesions noted Laboratory Results - last 24 hr 10/03/18 10/03/18 10/03/18 12:18 17:20 17:31 Sodium 130 L Potassium 4.4 Chloride 95 L Carbon Dioxide 26 Anion Gap 9 BUN 28 H Creatinine 1.1 Creat Clearance w eGFR 47.32 POC Glucometer 193 175 Random Glucose 179 H Calcium 8.9 Phosphorus Magnesium Total Bilirubin AST ALT Alkaline Phosphatase Total Protein Albumin 10/03/18 10/04/18 10/04/18 21:27 05:45 05:45 Sodium 134 L Potassium 4.4 Chloride 99 Carbon Dioxide 26 Anion Gap 9 BUN 21 H Creatinine 0.9 Creat Clearance w eGFR 59.65 POC Glucometer 219 132 Random Glucose 130 H Calcium 8.5 Phosphorus 3.0 Magnesium 1.8 Total Bilirubin 1.0 AST 17 ALT 17 Alkaline Phosphatase 117 Total Protein 6.3 L Albumin 3.0 L Active Medications Generic Name Dose Route Start Last Admin Trade Name Freq PRN Reason Stop Dose Admin Amlodipine Besylate 10 mg 10/02/18 16:00 10/04/18 09:30 Norvasc - PO 10 mg DAILY [facility] Administration Heparin Sodium (Porcine) 5,000 unit 10/02/18 22:00 10/04/18 06:23 Heparin - SQ 5,000 unit TID [facility]ACK Administration Ceftriaxone Sodium 1 gm/ 50 mls @ 100 mls/hr 10/04/18 10:00 Dextrose IVPB DAILY [facility] Protocol Insulin Aspart 1 vial 10/02/18 16:30 10/04/18 06:23 Novolog Vial Sliding Scale - SQ Not Given ACHS [facility] Protocol Petrolatum 1 applic 10/02/18 23:52 10/03/18 00:03 Sensi-Care Protective Ointment TP 1 applic PRN PRN Administration HYGEINE Microbiology 10/02/18 19:19 Urine - Urine - Catheterized Urine Culture - Preliminary Lactose Fermenting Neg Bacilli ASSESSMENT/PLAN: 83 yof with PMHx of HTN, type II DM, ?colon cancer s/p sigmoid resection/ hepatic lesions (?treatment) admitted with weakness found with severe hyponatremia and NABIL. -Severe hyponatremia, suspect hypovolumic from poor oral intake/diuretics/ hyperglycemia (last Na in 07/2018 144) -NABIL, likely from above -Hyperkalemia, likely from NABIL/ARB/triamterene -Urinary retention with bilateral hydroureteronephrosis -Complicated gm neg UTI -Progressive hepatic lesions, ?metastatic vs primary HCC (H/o SBRT 2016, with progression, being followed with heme/onc) -Colon ca s/p sigmoid resection (GIST Tumor resection in 2011) -HTN -Type II DM, reportedly taken off lantus this month Plan: Off IVF since yesterday. Na improved, Tolerating diet. Nephrology input appreciated.Continue to hold triamterene/HCTZ/ARB/Lasix. Urology input. Urine cx noted, given vague abdominal symptoms, retention and obstructive uropathy, will start Ceftriaxone day 1 today. Follow up urine cx. Renal US to assess obstructive changes. ISS, hold oral hypoglycemics. reportedly patient taken off lantus this month as unable to administer herself. Resume lantus while inhouse if blood sugars continue to rise. Change to diabetic diet. Patient reports wanting conservative management for her hepatic lesions, reportedly advised surgery which she is not interested in but amenable to local treatment. Defer further w/u to PCP/oncology.e. DVTPPX heparin PT eval and dispo planning in 24-48 hours. VNS vs SNF. Transfer to med-surg when bed available. Plan discussed with patient, CM and nursing in detail, all questions answered. Visit type - Emergency Visit Emergency Visit: Yes ED Registration Date: 10/02/18 Care time: The patient presented to the Emergency Department on the above date and was hospitalized for further evaluation of their emergent condition. - New Patient This patient is new to me today: No - Critical Care Critical Care patient: No
[2018-10-04] MEDS ORDERED: MAGNESIUM OXIDE 400 MG TABLET (FP) PO ONE (11:05)
[2018-10-04] MEDS: CEFTRIAXONE 1 GM in DEXTROSE 5%-WATER - 50 ML IVPB SCH (11:16)
--- NOTE | 2018-10-04 14:04 | PN ---
Progress Note (short form) - Note Progress Note: 83 year old f Hypertension, DM, hx of colon ca admitted with generalized weakness found to have serum Na of 114. Active Medications Amlodipine Besylate (Norvasc -) 10 mg PO DAILY [facility] Last Admin: 10/04/18 09:30 Dose: 10 mg Heparin Sodium (Porcine) (Heparin -) 5,000 unit SQ TID [facility] Last Admin: 10/04/18 13:18 Dose: 5,000 unit Ceftriaxone Sodium 1 gm/ (Dextrose) 50 mls @ 100 mls/hr IVPB DAILY [facility]; Protocol Last Admin: 10/04/18 11:16 Dose: 100 mls/hr Insulin Aspart (Novolog Vial Sliding Scale -) 1 vial SQ ACHS [facility]; Protocol Last Admin: 10/04/18 11:38 Dose: 4 units Petrolatum (Sensi-Care Protective Ointment) 1 applic TP PRN PRN PRN Reason: HYGEINE Last Admin: 10/03/18 00:03 Dose: 1 applic Last Vital Signs Temp Pulse Resp BP Pulse Ox 98.8 F 107 H 20 114/50 L 96 10/04/18 10:00 10/04/18 10:46 10/04/18 10:00 10/04/18 10:00 10/04/18 10:46 CBC, BMP 10/03/18 05:30 10/04/18 05:45 CBC, BMP 10/03/18 05:30 10/03/18 05:30 IMP -Hyponatremia much improved -hypovolemia/ multiple diuretics -NABIL due to volume depletion +/- renal hypoprofuison in setting of ARB -Hypertension -DM Plan- same rx
[2018-10-05] MEDS: INSULIN SLIDING SCALE (NOVOLOG) 1 VIAL SQ SCH ×4 (06:49→23:23)
[2018-10-05] MEDS: HEPARIN NA (PORCINE) 5,000 UNITS/ML 1ML VIAL SQ SCH ×3 (06:55→23:25)
[2018-10-05 08:04] LABS: ANION GAP 8 MMOL/L (8-16); BLOOD UREA NITROGEN 16 mg/dL (7-18); CALCIUM 8.7 mg/dL (8.5-10.1); CHLORIDE 97 mmol/L (98-107); CO2 28 mmol/L (21-32); GLUCOSE,RANDOM 115 mg/dL (74-106); POTASSIUM 4.4 mmol/L (3.5-5.1); SODIUM 132 mmol/L (136-145)
--- NOTE | 2018-10-05 08:51 | PN ---
Physical Exam: SUBJECTIVE: Patient seen and examined by me at bedside. No acute events overnight Patient OBJECTIVE: Vital Signs Period Temp Pulse Resp BP Sys/King Pulse Ox Last 24 Hr 98.2 F-99 F 70-107 18-20 93-129/50-61 96-98 GENERAL: Awake, alert, and fully oriented, in no acute distress. EYES: Sclera anicteric, conjunctiva clear. No lid lag. ENT: Oropharynx clear without exudates. Dry mucous membranes. LUNGS: Breath sounds equal, clear to auscultation bilaterally. No wheezes, and no crackles. No accessory muscle use. HEART: Regular rate and rhythm, normal S1 and S2 without murmur, rub or gallop. ABDOMEN: Soft, nontender, (+) Distended, normoactive bowel sounds, no guarding, no rebound, no masses. No hepatomegaly or splenomegaly. LOWER EXTREMITIES: No peripheral edema. NEUROLOGICAL: Cranial nerves II-XII intact. Normal speech Laboratory Results 10/03/18 05:30 10/05/18 06:19 Active Medications Generic Name Dose Route Start Last Admin Trade Name Freq PRN Reason Stop Dose Admin Amlodipine Besylate 10 mg 10/02/18 16:00 10/04/18 09:30 Norvasc - PO 10 mg DAILY [facility] Administration Heparin Sodium (Porcine) 5,000 unit 10/02/18 22:00 10/05/18 06:55 Heparin - SQ 5,000 unit TID [facility] Administration Ceftriaxone Sodium 1 gm/ 50 mls @ 100 mls/hr 10/04/18 10:00 10/04/18 11:16 Dextrose IVPB 100 mls/hr DAILY [facility] Administration Protocol Insulin Aspart 1 vial 10/02/18 16:30 10/05/18 06:49 Novolog Vial Sliding Scale - SQ Not Given ACHS [facility] Protocol Petrolatum 1 applic 10/02/18 23:52 10/03/18 00:03 Sensi-Care Protective Ointment TP 1 applic PRN PRN Administration HYGEINE ASSESSMENT/PLAN: Patient is an 83 year old female who presented for weakness and shortness of breath. Patient was found to have a serum sodium level of 114 and admitted for further monitoring and management. #Severe Hypovolemic Hyponatremia- Improving -In the setting of multiple diuretics, poor oral intake, and hyperglycemia -132 today on no fluids for two days now -Continue to Hold all diuretics -No emergent indication for 3% saline -Continue to Repeat BMP #NABIL- Improved -Likely from hypovolemia -Continue to monitor #Hyperkalemia- Improved -Likely from NABIL and the setting of multiple diuretics -Continue to monitor with repeat BMP #Abdominal Distention -CT abdomen ordered and revealed bladder over distention with bilateral hydroureteronephrosis -Continues to have Coyle -Repeat Renal/Bladder U/S still shows moderate hydronephrosis -Waiting on Urology consult #HTN -Currently controlled -Continue Amlodipine 10mg daily -Continue to monitor BP #IDDMII -Currently taken off Lantus this month -Hold all oral medications -BGM -ISS #Diastolic CHF -Echo unremarkable 04/2017 -Chest X-ray no acute pathology -Lasix on hold #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 -CT abdomen here revealed hepatic lesion. -Last PET 04/2018 with progression of disease. -Patient was advised follow up with Dr. Galicia, reportedly has not seen her yet and IR input for possible chemoembolization/Biopsy for systemic therapy. F/E/N -On no fluids -Electrolytes wnl -Regular diet Prophylaxis -Heparin 5000 units sq TID for DVT -No GI required Disposition -Full code. States HCP is her grand daughter on record -Telemetry monitoring. Continue to follow BMP Patricia King [id number] Visit type - Emergency Visit Emergency Visit: Yes ED Registration Date: 10/02/18 Care time: The patient presented to the Emergency Department on the above date and was hospitalized for further evaluation of their emergent condition. - New Patient This patient is new to me today: No - Critical Care Critical Care patient: No
[2018-10-05] MEDS ORDERED: cefTRIAXone SODIUM 1 GM VIAL ONE (08:55)
[2018-10-05] MEDS ORDERED: DEXTROSE 5%-WATER - 50 ML IVPB ONE (08:55)
[2018-10-05] MEDS: CEFTRIAXONE 1 GM in DEXTROSE 5%-WATER - 50 ML IVPB SCH (09:55)
[2018-10-05] MEDS: amLODIPine BESYLATE 10 MG TABLET (FP) PO SCH (09:55)
--- NOTE | 2018-10-05 11:05 | PN ---
Teaching Attending Note Name of Resident: Patricia King ATTENDING PHYSICIAN STATEMENT I saw and evaluated the patient. I reviewed the resident's note and discussed the case with the resident. I agree with the resident's findings and plan as documented with exceptions below. SUBJECTIVE: Patient seen and examined. suprapubic discomfort since admission has improved today, no back pain. no nausea, vomiting, tolerating diet well. OBJECTIVE: Vital Signs Period Temp Pulse Resp BP Sys/King Pulse Ox Last 24 Hr 98.2 F-99.1 F 70-81 18-20 93-132/53-61 97-99 Intake & Output 10/02/18 10/03/18 10/04/18 10/05/18 23:59 23:59 23:59 23:59 Intake Total 7023 705 5508 Output Total 4100 2700 450 Balance 1200 -3440 -1210 -450 Weight 180 lb 12.8 oz General: sitting at edge of bed about to have breakfast Chest: CTAB, no rales or wheezing Abdomen: soft, unchanged distension, mild suprapubic tenderness improved from before, midline vertical scar, no voluntary or involuntary guarding or rigidity no CVA tenderness Extremities: no edema Home Medications Medication Instructions Recorded Furosemide [Lasix -] 40 mg PO DAILY 06/17/16 Triamterene/Hydrochlorothiazid 1 each PO DAILY 06/17/16 [Triamterene-Hctz 37.5-25 mg Cp] Amlodipine Besylate 10 mg PO DAILY 10/02/18 Aspirin 81 mg PO DAILY 10/02/18 Glimepiride 4 mg PO DAILY 10/02/18 Losartan Potassium 100 mg PO DAILY 10/02/18 Sitagliptin Phosphate [Januvia] 50 mg PO DAILY 10/02/18 Active Medications Amlodipine Besylate (Norvasc -) 10 mg PO DAILY [facility] Last Admin: 10/05/18 09:55 Dose: 10 mg Heparin Sodium (Porcine) (Heparin -) 5,000 unit SQ TID [facility] Last Admin: 10/05/18 06:55 Dose: 5,000 unit Ceftriaxone Sodium 1 gm/ (Dextrose) 50 mls @ 100 mls/hr IVPB DAILY [facility]; Protocol Last Admin: 10/05/18 09:55 Dose: 100 mls/hr Insulin Aspart (Novolog Vial Sliding Scale -) 1 vial SQ ACHS [facility]; Protocol Last Admin: 10/05/18 06:49 Dose: Not Given Petrolatum (Sensi-Care Protective Ointment) 1 applic TP PRN PRN PRN Reason: HYGEINE Last Admin: 10/03/18 00:03 Dose: 1 applic Laboratory Results - last 24 hr 10/02/18 10/02/18 10/04/18 16:40 16:44 11:36 Sodium Potassium Chloride Carbon Dioxide Anion Gap BUN Creatinine Creat Clearance w eGFR POC Glucometer < 50 188.99753 233 Random Glucose Calcium Phosphorus Magnesium 10/04/18 10/04/18 10/05/18 17:01 21:10 05:57 Sodium Potassium Chloride Carbon Dioxide Anion Gap BUN Creatinine Creat Clearance w eGFR POC Glucometer 177 160 119 Random Glucose Calcium Phosphorus Magnesium 10/05/18 06:19 Sodium 132 L Potassium 4.4 Chloride 97 L Carbon Dioxide 28 Anion Gap 8 BUN 16 Creatinine 1.0 Creat Clearance w eGFR 52.82 POC Glucometer Random Glucose 115 H Calcium 8.7 Phosphorus 3.0 Magnesium 2.0 Microbiology 10/02/18 19:19 Urine - Urine - Catheterized Urine Culture - Final Klebsiella Oxytoca ASSESSMENT AND PLAN: 83 yof with PMHx of HTN, type II DM, ?colon cancer s/p sigmoid resection/ hepatic lesions (?treatment) admitted with weakness found with severe hyponatremia and NABIL. -Severe hyponatremia, suspect hypovolumic from poor oral intake/diuretics/ hyperglycemia (last Na in 07/2018 144) and associated UTI with poor oral intake -NABIL, likely from above -Hyperkalemia, likely from NABIL/ARB/triamterene -Urinary retention with bilateral hydroureteronephrosis -Acute complicated Klebsiella UTI -Progressive hepatic lesions, ?metastatic vs primary HCC (H/o SBRT 2016, with progression, being followed with heme/onc) -Colon ca s/p sigmoid resection (GIST Tumor resection in 2011) -HTN -Type II DM, reportedly taken off lantus this month Plan: Off IVF since yesterday. Na noted, tolerating PO for now. Hold off on hydration and monitor. Nephrology input appreciated.Continue to hold triamterene/HCTZ/ARB/Lasix. Volume status/BP stable off meds. Urology input, discussed with Dr. Mccrary, follow up recs. Urine cx noted, suprapubic symptoms improved. Transition to cefuroxime in 24-48 hours. Renal US limited, right hydronephrosis, left side not visualized. Continue bernal. ISS, hold oral hypoglycemics. reportedly patient taken off lantus this month as unable to administer herself. Resume lantus while inhouse if blood sugars continue to rise. Diabetic diet. Patient reports wanting conservative management for her hepatic lesions, reportedly advised surgery which she is not interested in but amenable to local treatment. Defer further w/u to PCP/oncology. DVTPPX heparin PT re-eval, may need SNF and dispo planning if needs bernal on d/c. Discuss with CM. Transfer to med-surg when bed available. Plan discussed with patient and nursing in detail, all questions answered.
[2018-10-05] MEDS ORDERED: INSULIN (NOVOLOG) ASPART 100 UNITS/ML 10ML VIAL ONE ×2 (11:35→22:15)
--- NOTE | 2018-10-05 13:38 | PN ---
Progress Note (short form) - Note Progress Note: Renal follow up for NABIL and Hyponatremia Pt seen and examined at the bedside no acute complaints no lethargy, weakness N/V or seizures bernal in place with clear urine Vital Signs Temperature 99.1 F 10/05/18 10:00 Pulse Rate 79 10/05/18 10:00 Respiratory Rate 20 10/05/18 10:00 Blood Pressure 132/61 10/05/18 10:00 O2 Sat by Pulse Oximetry (%) 99 10/05/18 09:00 Intake & Output 10/02/18 10/03/18 10/04/18 10/05/18 23:59 23:59 23:59 23:59 Intake Total 8021 673 4086 Output Total 4100 2700 450 Balance 1200 -3440 -1210 -450 Weight 82.01 kg NAD awake and alert CTA no LE edema bernal in place with clear urine CBC, BMP 10/03/18 05:30 10/05/18 06:19 Current Medications Amlodipine Besylate (Norvasc -) 10 mg PO DAILY [facility] Last Admin: 10/05/18 09:55 Dose: 10 mg Heparin Sodium (Porcine) (Heparin -) 5,000 unit SQ TID [facility] Last Admin: 10/05/18 13:12 Dose: 5,000 unit Ceftriaxone Sodium 1 gm/ (Dextrose) 50 mls @ 100 mls/hr IVPB DAILY [facility]; Protocol Last Admin: 10/05/18 09:55 Dose: 100 mls/hr Insulin Aspart (Novolog Vial Sliding Scale -) 1 vial SQ ACHS [facility]; Protocol Last Admin: 10/05/18 11:36 Dose: 2 units Petrolatum (Sensi-Care Protective Ointment) 1 applic TP PRN PRN PRN Reason: HYGEINE Last Admin: 10/03/18 00:03 Dose: 1 applic 83 year old woman with hx of Hypertension, DM, hx of colon ca who presented with complaints of generalized weakness and cough and found to have serum Na of 114. #Hyponatremia likely do to hypovolemia in setting of multiple diuretics #NABIL due to volume depletion +/- renal hypoprofuison in setting of ARB #Hypertension #DM Serum Na and Renal function improved with IV hydration and bladder catheter insertion No indication for 3% saline Urology consult for urinary retention Trend serum Na with oral intake would continue to withhold diuretics as pt appears to be evolemic at the present time Krish Garibay DO
--- NOTE | 2018-10-05 17:43 | CON.GU ---
Consult Consult Specialty:: urology Reason for Consultation:: urinary retention - History of Present Illness History of Present Illness: Patient with history of metastatic colon cancer. Patient admitted with hyponatremia and found to have urinary retention with resulting hydronephrosis. Patient is unaware of any voiding difficulties and denies gross hematuria, incontinence, or previous episodes of retention. - History Source History Provided By: Patient - Alcohol/Substance Use Hx Alcohol Use: No - Smoking History Smoking history: Never smoked Home Medications - Allergies Allergies/Adverse Reactions: Allergies Allergy/AdvReac Type Severity Reaction Status Date / Time No Known Allergies Allergy Verified 10/02/18 10:18 - Home Medications Home Medications: Ambulatory Orders Furosemide [Lasix -] 40 mg PO DAILY 06/17/16 Triamterene/Hydrochlorothiazid [Triamterene-Hctz 37.5-25 mg Cp] 1 each PO DAILY 06/17/16 Amlodipine Besylate 10 mg PO DAILY 10/02/18 Aspirin 81 mg PO DAILY 10/02/18 Glimepiride 4 mg PO DAILY 10/02/18 Losartan Potassium 100 mg PO DAILY 10/02/18 Sitagliptin Phosphate [Januvia] 50 mg PO DAILY 10/02/18 Physical Exam- Vital Signs: Vital Signs Temperature 98.6 F 10/05/18 14:00 Pulse Rate 65 10/05/18 14:00 Respiratory Rate 20 10/05/18 14:00 Blood Pressure 118/60 10/05/18 14:00 O2 Sat by Pulse Oximetry (%) 99 10/05/18 09:00 Constitutional: Yes: Well Nourished, No Distress, Calm Eyes: Yes: WNL, Conjunctiva Clear, EOM Intact HENT: Yes: WNL, Atraumatic, Normocephalic Neck: Yes: WNL, Supple, Trachea Midline Cardiovascular: Yes: WNL Respiratory: Yes: WNL Gastrointestinal: Yes: Normal Bowel Sounds, Soft Renal/: Yes: WNL Kidneys: Yes: WNL Pelvis: Yes: Bladder Non Palpable (bernal draining clear urine) Musculoskeletal: Yes: WNL Labs: CBC, BMP 10/03/18 05:30 10/05/18 06:19 Assessment/Plan impression urinary retention with hydronephrosis hyponatremia plan give patient a trial of voiding. if retention recurrs d/c home with bernal catheter and will follow-up as outpatient.
[2018-10-05] MEDS ORDERED: ZINC OXIDE/PETROLATUM,WHITE 1 APPLIC OINT...G. TP PRN (18:20)
[2018-10-06] MEDS ORDERED: INSULIN (NOVOLOG) ASPART 100 UNITS/ML 10ML VIAL ONE ×2 (05:51→16:50)
[2018-10-06] MEDS: HEPARIN NA (PORCINE) 5,000 UNITS/ML 1ML VIAL SQ SCH ×3 (06:28→22:07)
[2018-10-06] MEDS: INSULIN SLIDING SCALE (NOVOLOG) 1 VIAL SQ SCH ×4 (06:28→22:07)
[2018-10-06 08:24] LABS: ANION GAP 9 MMOL/L (8-16); BLOOD UREA NITROGEN 17 mg/dL (7-18); CALCIUM 8.9 mg/dL (8.5-10.1); CHLORIDE 98 mmol/L (98-107); CO2 27 mmol/L (21-32); CREATININE 0.9 mg/dL (0.55-1.3); GLUCOSE,RANDOM 130 mg/dL (74-106); POTASSIUM 4.6 mmol/L (3.5-5.1); SODIUM 134 mmol/L (136-145)
[2018-10-06] MEDS ORDERED: cefTRIAXone SODIUM 1 GM VIAL ONE (09:05)
[2018-10-06] MEDS ORDERED: DEXTROSE 5%-WATER - 50 ML IVPB ONE (09:05)
[2018-10-06] MEDS ORDERED: PT OWN MED DRAWER 7, Y5N ONE (09:05)
[2018-10-06] MEDS: CEFTRIAXONE 1 GM in DEXTROSE 5%-WATER - 50 ML IVPB SCH (09:13)
[2018-10-06] MEDS: amLODIPine BESYLATE 10 MG TABLET (FP) PO SCH (09:13)
--- NOTE | 2018-10-06 14:04 | PN ---
Teaching Attending Note Name of Resident: Patricia King ATTENDING PHYSICIAN STATEMENT I saw and evaluated the patient. I reviewed the resident's note and discussed the case with the resident. I agree with the resident's findings and plan as documented with exceptions below. SUBJECTIVE: Patient seen and examined. No complaints, suprapubic abdominal pain almost resolved. OBJECTIVE: Vital Signs Period Temp Pulse Resp BP Sys/King Pulse Ox Last 24 Hr 97.4 F-98.6 F 62-76 20-20 112-139/51-59 Intake & Output 10/03/18 10/04/18 10/05/18 10/06/18 23:59 23:59 23:59 23:59 Intake Total 660 1490 930 380 Output Total 4100 2700 1250 1200 Balance -3440 -1210 -320 -820 General: lying in bed in no acute distress Chest;CTAB, no rales or wheezing Abdomen:soft, unchanged distension, minimal tenderness in suprapubic region Extremities: no edema Home Medications Medication Instructions Recorded Furosemide [Lasix -] 40 mg PO DAILY 06/17/16 Triamterene/Hydrochlorothiazid 1 each PO DAILY 06/17/16 [Triamterene-Hctz 37.5-25 mg Cp] Amlodipine Besylate 10 mg PO DAILY 10/02/18 Aspirin 81 mg PO DAILY 10/02/18 Glimepiride 4 mg PO DAILY 10/02/18 Losartan Potassium 100 mg PO DAILY 10/02/18 Sitagliptin Phosphate [Januvia] 50 mg PO DAILY 10/02/18 Active Medications Amlodipine Besylate (Norvasc -) 10 mg PO DAILY [facility] Last Admin: 10/06/18 09:13 Dose: 10 mg Heparin Sodium (Porcine) (Heparin -) 5,000 unit SQ TID [facility] Last Admin: 10/06/18 13:30 Dose: 5,000 unit Ceftriaxone Sodium 1 gm/ (Dextrose) 50 mls @ 100 mls/hr IVPB DAILY [facility]; Protocol Last Admin: 10/06/18 09:13 Dose: 100 mls/hr Insulin Aspart (Novolog Vial Sliding Scale -) 1 vial SQ ACHS [facility]; Protocol Last Admin: 10/06/18 11:26 Dose: 2 units Petrolatum (Sensi-Care Protective Ointment) 1 applic TP PRN PRN PRN Reason: HYGEINE Laboratory Results - last 24 hr 10/05/18 10/05/18 10/06/18 17:25 23:21 06:25 Sodium Potassium Chloride Carbon Dioxide Anion Gap BUN Creatinine Creat Clearance w eGFR POC Glucometer 158 214 162 Random Glucose Calcium 10/06/18 10/06/18 07:00 11:13 Sodium 134 L Potassium 4.6 Chloride 98 Carbon Dioxide 27 Anion Gap 9 BUN 17 Creatinine 0.9 Creat Clearance w eGFR 59.65 POC Glucometer 167 Random Glucose 130 H Calcium 8.9 Microbiology 10/02/18 19:19 Urine - Urine - Catheterized Urine Culture - Final Klebsiella Oxytoca ASSESSMENT AND PLAN: 83 yof with PMHx of HTN, type II DM, ?colon cancer s/p sigmoid resection/ hepatic lesions (?treatment) admitted with weakness found with severe hyponatremia and NABIL. 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 Volume status/BP stable off meds. Urology input appreciated, d/c bernal, voiding trial today. Renal US limited, right hydronephrosis, left side not visualized. Urine cultures noted, ceftriaxone day 3, transition to cefuroxime on dc. ISS, hold oral hypoglycemics. reportedly patient taken off lantus this month as unable to administer herself. Resume lantus while inhouse if blood sugars continue to rise. Diabetic diet. Patient reports wanting conservative management for her hepatic lesions, reportedly advised surgery which she is not interested in but amenable to local treatment. Defer further w/u to PCP/oncology. DVTPPX heparin PT eval noted, for home PT Dispo plan for d/c home with services in 24 hours pending voiding trial and need for bernal. If patient needs bernal on d.c, will need to address additional options as may not be able to manage bernal by self at home. CM updated.
--- NOTE | 2018-10-06 16:25 | PN ---
Physical Exam: SUBJECTIVE: Patient seen and examined by me at bedside. No acute events overnight Sodium and renal function improved Offers no other complaints. Otherwise, denies fever, chills, nausea, vomiting, abdominal pain, chest pain, palpitations, shortness of breath. OBJECTIVE: Vital Signs Period Temp Pulse Resp BP Sys/King Pulse Ox Last 24 Hr 97.4 F-98.6 F 62-76 18-20 112-139/51-59 GENERAL: Awake, alert, and fully oriented, in no acute distress. EYES: Sclera anicteric, conjunctiva clear. No lid lag. ENT: Oropharynx clear without exudates. Dry mucous membranes. LUNGS: Breath sounds equal, clear to auscultation bilaterally. No wheezes, and no crackles. No accessory muscle use. HEART: Regular rate and rhythm, normal S1 and S2 without murmur, rub or gallop. ABDOMEN: Soft, nontender, (+) Distended, normoactive bowel sounds, no guarding, no rebound, no masses. LOWER EXTREMITIES: No peripheral edema. Laboratory Results 10/06/18 07:00 Active Medications Generic Name Dose Route Start Last Admin Trade Name Freq PRN Reason Stop Dose Admin Amlodipine Besylate 10 mg 10/06/18 10:00 10/06/18 09:13 Norvasc - PO 10 mg DAILY [facility] Administration Heparin Sodium (Porcine) 5,000 unit 10/05/18 22:00 10/06/18 13:30 Heparin - SQ 5,000 unit TID [facility] Administration Ceftriaxone Sodium 1 gm/ 50 mls @ 100 mls/hr 10/04/18 10:00 10/06/18 09:13 Dextrose IVPB 100 mls/hr DAILY [facility] Administration Protocol Insulin Aspart 1 vial 10/05/18 22:00 10/06/18 11:26 Novolog Vial Sliding Scale - SQ 2 units ACHS [facility] Administration Protocol Petrolatum 1 applic 10/05/18 18:20 Sensi-Care Protective Ointment TP PRN PRN HYGEINE ASSESSMENT/PLAN: Patient is an 83 year old female who presented for weakness and shortness of breath. Patient was found to have a serum sodium level of 114 and admitted for further monitoring and management. #Severe Hypovolemic Hyponatremia- Improving -In the setting of multiple diuretics, poor oral intake, and hyperglycemia -134 today on no fluids for two days now -Continue to Hold all diuretics -No emergent indication for 3% saline -Continue to Repeat BMP #NABIL- Improved -Likely from hypovolemia -Continue to monitor #Hyperkalemia- Improved -Likely from NABIL and the setting of multiple diuretics -Continue to monitor with repeat BMP #Abdominal Distention -CT abdomen ordered and revealed bladder over distention with bilateral hydroureteronephrosis -Continues to have Bernal -Repeat Renal/Bladder U/S still shows moderate hydronephrosis -Urology recommended trial of voiding. if retention recurrs d/c home with bernal catheter and will follow-up as outpatient. 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 -CT abdomen here revealed hepatic lesion. -Last PET 04/2018 with progression of disease. -Patient was advised follow up with Dr. Galicia, reportedly has not seen her yet and IR input for possible chemoembolization/Biopsy for systemic therapy. F/E/N -On no fluids -Electrolytes wnl -Regular diet Prophylaxis -Heparin 5000 units sq TID for DVT -No GI required Disposition -Full code. States HCP is her grand daughter on record -Continue to follow BMP Patricia King [id number] Visit type - Emergency Visit Emergency Visit: Yes ED Registration Date: 10/02/18 Care time: The patient presented to the Emergency Department on the above date and was hospitalized for further evaluation of their emergent condition. - New Patient This patient is new to me today: No - Critical Care Critical Care patient: No
[2018-10-07] MEDS: INSULIN SLIDING SCALE (NOVOLOG) 1 VIAL SQ SCH ×4 (06:09→22:07)
[2018-10-07] MEDS: HEPARIN NA (PORCINE) 5,000 UNITS/ML 1ML VIAL SQ SCH ×3 (06:14→22:07)
[2018-10-07 08:03] LABS: ANION GAP 7 MMOL/L (8-16); BLOOD UREA NITROGEN 15 mg/dL (7-18); CALCIUM 8.7 mg/dL (8.5-10.1); CHLORIDE 100 mmol/L (98-107); CO2 27 mmol/L (21-32); CREATININE 0.8 mg/dL (0.55-1.3); GLUCOSE,RANDOM 142 mg/dL (74-106); POTASSIUM 4.4 mmol/L (3.5-5.1); SODIUM 134 mmol/L (136-145)
[2018-10-07] MEDS ORDERED: DEXTROSE 5%-WATER - 50 ML IVPB ONE (09:57)
[2018-10-07] MEDS ORDERED: PT OWN MED DRAWER 7, Y5N ONE (09:57)
[2018-10-07] MEDS ORDERED: cefTRIAXone SODIUM 1 GM VIAL ONE (09:57)
[2018-10-07] MEDS: CEFTRIAXONE 1 GM in DEXTROSE 5%-WATER - 50 ML IVPB SCH (10:06)
[2018-10-07] MEDS: amLODIPine BESYLATE 10 MG TABLET (FP) PO SCH (10:06)
[2018-10-07] MEDS ORDERED: INSULIN (NOVOLOG) ASPART 100 UNITS/ML 10ML VIAL ONE (11:37)
--- NOTE | 2018-10-07 13:18 | PN ---
Progress Note (short form) - Note Progress Note: Renal follow up for NABIL and Hyponatremia Pt seen and examined at the bedside no acute complaints tolerating oral diet no N/V/D off IVF Vital Signs Temperature 98.6 F 10/07/18 08:05 Pulse Rate 70 10/07/18 08:05 Respiratory Rate 20 10/07/18 08:05 Blood Pressure 117/56 L 10/07/18 08:05 O2 Sat by Pulse Oximetry (%) 99 10/05/18 09:00 NAD awake and alert CTA no LE edema bernal in place with clear urine CBC, BMP 10/03/18 05:30 10/07/18 06:30 Current Medications Amlodipine Besylate (Norvasc -) 10 mg PO DAILY [facility] Last Admin: 10/07/18 10:06 Dose: 10 mg Heparin Sodium (Porcine) (Heparin -) 5,000 unit SQ TID [facility] Last Admin: 10/07/18 06:14 Dose: 5,000 unit Ceftriaxone Sodium 1 gm/ (Dextrose) 50 mls @ 100 mls/hr IVPB DAILY [facility]; Protocol Last Admin: 10/07/18 10:06 Dose: 100 mls/hr Insulin Aspart (Novolog Vial Sliding Scale -) 1 vial SQ ACHS [facility]; Protocol Last Admin: 10/07/18 11:41 Dose: 4 units Petrolatum (Sensi-Care Protective Ointment) 1 applic TP PRN PRN PRN Reason: HYGEINE 83 year old woman with hx of Hypertension, DM, hx of colon ca who presented with complaints of generalized weakness and cough and found to have serum Na of 114. #Hyponatremia likely do to hypovolemia in setting of multiple diuretics #NABIL due to volume depletion +/- renal hypoprofuison in setting of ARB #Hypertension #DM renal function and serum na stable at this time would not restart HCTZ/Triamterine on discharge Lasix can be used if needed if pt has any edema but at this time is evolemic BP is well controlled on HCTZ alone pt voiding w/o catheter discharge planning as per primary Krish Garibay DO
--- NOTE | 2018-10-07 16:44 | PN ---
Physical Exam: SUBJECTIVE:Patient seen and examined by me at bedside. No acute events overnight Sodium and renal function improved Patient is voiding without bernal catheter Otherwise, denies fever, chills, nausea, vomiting, abdominal pain, chest pain, palpitations, shortness of breath. OBJECTIVE: Vital Signs Period Temp Pulse Resp BP Sys/King Pulse Ox Last 24 Hr 98.3 F-98.7 F 59-70 18-20 108-117/44-56 GENERAL: Awake, alert, and fully oriented, in no acute distress. EYES: Sclera anicteric, conjunctiva clear. No lid lag. ENT: Oropharynx clear without exudates. Dry mucous membranes. LUNGS: Breath sounds equal, clear to auscultation bilaterally. No wheezes, and no crackles. No accessory muscle use. HEART: Regular rate and rhythm, normal S1 and S2 without murmur, rub or gallop. ABDOMEN: Soft, nontender, (+) mildly Distended, normoactive bowel sounds, no guarding, no rebound, no masses. LOWER EXTREMITIES: No peripheral edema. Laboratory Results - last 24 hr 10/07/18 10/07/18 06:30 11:32 Sodium 134 L Potassium 4.4 Chloride 100 Carbon Dioxide 27 Anion Gap 7 L BUN 15 Creatinine 0.8 Creat Clearance w eGFR > 60 POC Glucometer 214 Random Glucose 142 H Calcium 8.7 Active Medications Generic Name Dose Route Start Last Admin Trade Name Freq PRN Reason Stop Dose Admin Amlodipine Besylate 10 mg 10/06/18 10:00 10/07/18 10:06 Norvasc - PO 10 mg DAILY ZACK Administration Heparin Sodium (Porcine) 5,000 unit 10/05/18 22:00 10/07/18 14:54 Heparin - SQ 5,000 unit TID ZACK Administration Ceftriaxone Sodium 1 gm/ 50 mls @ 100 mls/hr 10/04/18 10:00 10/07/18 10:06 Dextrose IVPB 100 mls/hr DAILY ZACK Administration Protocol Insulin Aspart 1 vial 10/05/18 22:00 10/07/18 16:21 Novolog Vial Sliding Scale - SQ 4 units ACHS ZACK Administration Protocol Petrolatum 1 applic 10/05/18 18:20 Sensi-Care Protective Ointment TP PRN PRN HYGEINE ASSESSMENT/PLAN: Patient is an 83 year old female who presented for weakness and shortness of breath. Patient was found to have a serum sodium level of 114 and admitted for further monitoring and management. #Severe Hypovolemic Hyponatremia- Improving -In the setting of multiple diuretics, poor oral intake, and hyperglycemia -134 today on no fluids for two days now -Continue to Hold all diuretics -No emergent indication for 3% saline -Continue to Repeat BMP #NABIL- Improved -Likely from hypovolemia -Continue to monitor #Hyperkalemia- Improved -Likely from NABIL and the setting of multiple diuretics -Continue to monitor with repeat BMP #Gram Negative UTI -Continue Ceftriaxone 1gm IV daily day#4 -Will send home with Cefuroxime -Cultures positive for Klebsiella Oxytoca #Abdominal Distention -CT abdomen ordered and revealed bladder over distention with bilateral hydroureteronephrosis -Continues to have Bernal -Repeat Renal/Bladder U/S still shows moderate hydronephrosis -Urology recommended trial of voiding. if retention recurrs d/c home with bernal catheter and will follow-up as outpatient. 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 -CT abdomen here revealed hepatic lesion. -Last PET 04/2018 with progression of disease. -Patient was advised follow up with Dr. Galicia, reportedly has not seen her yet and IR input for possible chemoembolization/Biopsy for systemic therapy. F/E/N -On no fluids -Electrolytes wnl -Regular diet Prophylaxis -Heparin 5000 units sq TID for DVT -No GI required Disposition -Full code. States HCP is her grand daughter on record -Continue to follow BMP Patricia King MD-[id number] Visit type - Emergency Visit Emergency Visit: Yes ED Registration Date: 10/02/18 Care time: The patient presented to the Emergency Department on the above date and was hospitalized for further evaluation of their emergent condition. - New Patient This patient is new to me today: No - Critical Care Critical Care patient: No
--- NOTE | 2018-10-07 17:52 | PN ---
Teaching Attending Note Name of Resident: Patricia King ATTENDING PHYSICIAN STATEMENT I saw and evaluated the patient. I reviewed the resident's note and discussed the case with the resident. I agree with the resident's findings and plan as documented. SUBJECTIVE: Ms Luna is without complaint. Denies cp, sob, n/v. OBJECTIVE: Last Vital Signs Temp Pulse Resp BP Pulse Ox 36.7 C 68 20 124/50 L 99 10/07/18 16:30 10/07/18 16:30 10/07/18 16:30 10/07/18 16:30 10/05/18 09:00 Gen: nad Pulm: ctab w/o w/r/r CV: rrr w/o m/r/g Abd: +bs, s/nt/nd Ext: no c/c/e CBC, BMP 10/03/18 05:30 10/07/18 06:30 ASSESSMENT AND PLAN: -appreciate urology assistance -hydronephrosis much improved -voiding trial to evaluate if bernal needs to be replaced -sodium stable off of IVF -continue current management -plan for discharge tomorrow Problem List - Problems (1) Hyponatremia Code(s): E87.1 - HYPO-OSMOLALITY AND HYPONATREMIA (2) UTI (urinary tract infection) Code(s): N39.0 - URINARY TRACT INFECTION, SITE NOT SPECIFIED (3) HTN (hypertension) Code(s): I10 - ESSENTIAL (PRIMARY) HYPERTENSION (4) Hydronephrosis Code(s): N13.30 - UNSPECIFIED HYDRONEPHROSIS
[2018-10-08] MEDS: INSULIN SLIDING SCALE (NOVOLOG) 1 VIAL SQ SCH ×2 (06:31→11:47)
[2018-10-08] MEDS: HEPARIN NA (PORCINE) 5,000 UNITS/ML 1ML VIAL SQ SCH ×2 (06:32→14:50)
[2018-10-08] MEDS ORDERED: INSULIN (NOVOLOG) ASPART 100 UNITS/ML 10ML VIAL ONE ×2 (07:02→11:42)
[2018-10-08 08:05] LABS: ANION GAP 7 MMOL/L (8-16); BLOOD UREA NITROGEN 21 mg/dL (7-18); CALCIUM 8.6 mg/dL (8.5-10.1); CHLORIDE 102 mmol/L (98-107); CO2 27 mmol/L (21-32); GLUCOSE,RANDOM 165 mg/dL (74-106); POTASSIUM 4.6 mmol/L (3.5-5.1); SODIUM 136 mmol/L (136-145)
--- NOTE | 2018-10-08 08:23 | DS ---
Physical Exam: SUBJECTIVE: Patient seen and examined by me at bedside. No acute events overnight Patient offers no complaints States she is feeling much better and has been urinating last night and this morning. Otherwise, denies any fever, chills, nausea, vomiting, abdominal pain, chest pain, palpitations, shortness of breath, dizziness, acute vision changes, headaches. OBJECTIVE: Vital Signs Period Temp Pulse Resp BP Sys/King Pulse Ox Last 24 Hr 97.8 F-98.7 F 68-82 18-20 108-133/48-80 PHYSICAL EXAM GENERAL: Awake, alert, and fully oriented, in no acute distress. EYES: Sclera anicteric, conjunctiva clear. No lid lag. ENT: Oropharynx clear without exudates. Dry mucous membranes. LUNGS: Breath sounds equal, clear to auscultation bilaterally. No wheezes, and no crackles. No accessory muscle use. HEART: Regular rate and rhythm, normal S1 and S2 without murmur, rub or gallop. ABDOMEN: Soft, nontender, (+) non-Distended , normoactive bowel sounds, no guarding, no rebound, no masses. LOWER EXTREMITIES: No peripheral edema. 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 Patient was at her day program and noticed she was not at baseline and noticed she was having trouble breathing, which prompted them to call 911 and brought here for further evaluation. In the ED, labs revealed severe hyponatremia with a level of 114 as well as NABIL. Patient was seen by Nephrology who recommended fluids and admitted for further evaluation and management. HOSPITAL COURSE: Throughout hospitalization, patient had abdominal distention initially and Abdominal CT was ordered which revealed bladder overdistention and bilateral hydroureteronephrosis. U/A and culture also revealed UTI, likely from urinary retention. Patient was started on IV antibiotics for the UTI and a bernal was placed. Patient was evaluated by Urology who recommended voiding, which she initially failed and if she continued to fail he recommended to discharge her with the bernal. However, patient has been voiding without the bernal for the past 48 hours with improved kidney function. Patient's hyponatremia resolved appropriately with IV NS hydration and discontinuation of all three diuretics, which includes VALENTIN/ARB and HCTZ. Patient tolerating PO intake and now urinating appropriately. Patient medically cleared for discharge and is to go back home with home service that comes to her house 5 days a week Date of Admission:10/02/18 Date of Discharge: 10/08/18 Minutes to complete discharge: 45 Discharge Summary Reason For Visit: HYPONATREMIA Current Active Problems HTN (hypertension) (Acute) Hydronephrosis (Acute) Hyponatremia (Acute) UTI (urinary tract infection) (Acute) Condition: Stable - Instructions Diet, Activity, Other Instructions: RECOMMENDATIONS: -You were seen here for shortness of breath and weakness and was found to have low sodium likely from a combination of medications. You were treated with IV fluids and responded appropriately. -You were also found to have a UTI and started on IV antibiotics -You will need to resume your regular diet at home -If you continue to have problems or trouble urinating, please call your Primary care physician -If you experience any worsening symptoms such as dizziness or any seizure activities, call 911 or return to the emergency department. FOLLOW UP: -You will need to follow up with your Primary care physician within 1 week to re -evaluate your medications and repeat labs -You will need to see the Production Foreman, Dr. Garibay within 1-2 weeks -You should follow up with the Urologist within 2 weeks -You will need to follow up with your Assistant Professor Of Physics within 2 weeks -You will need to follow up with your Oncologist within 2 weeks MEDICATIONS: -Your medications Furosemide (Lasix), Triamterene/HCTZ, and Losartan has been discontinued for now. You will need to follow up with the die attaching machine tender and primary care physician so they can monitor your labs and determine when you can resume the medications. -You were started on Antibiotics and will be sent home with a prescription to complete the course. The medication we will be prescribing is called Cefuroxime. You may start taking it tomorrow for only two days. Please have it picked up from the pharmacy. Referrals: Roxanne Crump MD [Primary Care Provider] - Krish Garibay MD [Staff Physician] - Disposition: VNS/HOME HEALTH CARE - Home Medications Comprehensive Discharge Medication List: Ambulatory Orders Furosemide [Lasix -] 40 mg PO DAILY 06/17/16 Amlodipine Besylate 10 mg PO DAILY 10/02/18 Aspirin 81 mg PO DAILY 10/02/18 Glimepiride 4 mg PO DAILY 10/02/18 Sitagliptin Phosphate [Januvia] 50 mg PO DAILY 10/02/18 Cefuroxime Axetil [Cefuroxime] 500 mg PO BID #4 tablet 10/08/18 This patient is new to me today: Yes Date on this admission: 10/08/18 Emergency Visit: Yes ED Registration Date: 10/02/18 Care time: The patient presented to the Emergency Department on the above date and was hospitalized for further evaluation of their emergent condition. Critical Care patient: No - Discharge Referral Referred to [facility] Med P.C.: No
[2018-10-08] MEDS ORDERED: DEXTROSE 5%-WATER - 50 ML IVPB ONE (09:56)
[2018-10-08] MEDS ORDERED: cefTRIAXone SODIUM 1 GM VIAL ONE (09:56)
[2018-10-08] MEDS: CEFTRIAXONE 1 GM in DEXTROSE 5%-WATER - 50 ML IVPB SCH (10:09)
[2018-10-08] MEDS: amLODIPine BESYLATE 10 MG TABLET (FP) PO SCH (10:10)
--- NOTE | 2018-10-08 13:17 | PN ---
Teaching Attending Note Name of Resident: Patricia King ATTENDING PHYSICIAN STATEMENT I saw and evaluated the patient. I reviewed the resident's note and discussed the case with the resident. I agree with the resident's findings and plan as documented. SUBJECTIVE: OBJECTIVE: ASSESSMENT AND PLAN: Problem List - Problems (1) Hyponatremia Code(s): E87.1 - HYPO-OSMOLALITY AND HYPONATREMIA (2) UTI (urinary tract infection) Code(s): N39.0 - URINARY TRACT INFECTION, SITE NOT SPECIFIED (3) HTN (hypertension) Code(s): I10 - ESSENTIAL (PRIMARY) HYPERTENSION (4) Hydronephrosis Code(s): N13.30 - UNSPECIFIED HYDRONEPHROSIS
[2018-10-08 15:42] VITALS: BP 115/61; PULSE 71; TEMP 98.8
== END 2018-10-08 16:52 | disposition home health service (06) | DRG 683 ==
LOC: JER 10:07 → JERBED 13:51 → J4W 18:52 → JERBED 10-03 09:12 → J4W 10-03 09:14 → J8W 10-05 18:41
PROVIDERS: ADMIT Hospitalist; ATTEND Internal Medicine
DX: N17.9 Acute kidney failure, unspecified (principal); N39.0 Urinary tract infection, site not specified; E87.1 Hypo-osmolality and hyponatremia; I50.32 Chronic diastolic (congestive) heart failure; I11.0 Hypertensive heart disease with heart failure; N13.30 Unspecified hydronephrosis; K76.9 Liver disease, unspecified; R33.8 Other retention of urine; B96.1 Klebsiella pneumoniae [K. pneumoniae] as the cause of diseases classified elsewhere; Z85.038 Personal history of other malignant neoplasm of large intestine; E11.9 Type 2 diabetes mellitus without complications; Z79.84 Long term (current) use of oral hypoglycemic drugs; Z90.49 Acquired absence of other specified parts of digestive tract; E86.1 Hypovolemia; E04.2 Nontoxic multinodular goiter
CPT/HCPCS: 36415; 71045-TC-FY; 74177-TC; 76775-TC; 76856-TC; 80048; 80053; 81003; 81015; 82009; 82550; 82803; 82962; 83036; 83690; 83735; 83880; 83930; 83935; 84100; 84300; 84443; 84484; 84550; 85025; 87086; 87186; 93005; 93010; 94761; 97116-GP; 99284-25; J1644; J7030

== ENCOUNTER 2019-07-04 18:00 | Inpatient (IN) | payer OTHER ==
--- NOTE | 2019-07-04 19:01 | PDOC ---
History of Present Illness - General Chief Complaint: Edema Stated Complaint: DIFFICULTY BREATHING Time Seen by Provider: 07/04/19 19:00 - History of Present Illness Initial Comments: 07/04/19 19:19 84 year old woman with a history of HTN, metastatic colon CA, DM, prior thyroid nodule, who presents with 1 weeks of swelling in the legs and abdomen and shortness of breath when walking with her walker. She denies chest pain, cough or fever at home. In the ER she is febrile to 100.4F. ROS GENERAL/CONSTITUTIONAL: No fever or chills. No weakness. CARDIOVASCULAR: No chest pain + shortness of breath RESPIRATORY: No cough, wheezing, or hemoptysis. GASTROINTESTINAL: No nausea, vomiting, diarrhea or constipation. GENITOURINARY: No dysuria, frequency, or change in urination. MUSCULOSKELETAL: No joint or muscle swelling or pain. No neck or back pain. SKIN: No rash PE GENERAL: Awake, alert, and fully oriented, in no acute distress HEAD: No signs of trauma, normocephalic, atraumatic EYES:EOMI, sclera anicteric, conjunctiva clear ENT:oropharynx clear without exudates. Moist mucosa NECK: Normal ROM, supple LUNGS: No distress, speaks full sentences, + decreased breath sounds worse on R HEART: Regular rate and rhythm, normal S1 and S2, no murmurs, rubs or gallops, peripheral pulses normal and equal bilaterally. ABDOMEN: Soft, nontender, No guarding, no rebound. R sided lower abdominal scar , No masses trace edema on lower abdomen EXTREMITIES : + 2+ pitting edema bilateral feet up to mid calves. No clubbing or cyanosis. NEUROLOGICAL: Cranial nerves II through XII grossly intact. Normal speech, no focal sensorimotor deficits SKIN: Warm, Dry, normal turgor, no rashes or lesions noted MDM DDX including but not limited to: CHF exacerbation r/o acs ED Course: cardaic workup labs with hypokalemia, BNP wnl, consider low albumin and low oncotic pressure patient with elevated AST Plan for admission Adrianne Lay, PGY2 Emergency Medicine Past History - Past Medical History Allergies/Adverse Reactions: Allergies Allergy/AdvReac Type Severity Reaction Status Date / Time No Known Allergies Allergy Verified 07/04/19 18:41 Home Medications: Ambulatory Orders Amlodipine Besylate 10 mg PO DAILY 10/02/18 Aspirin 81 mg PO DAILY 10/02/18 Glimepiride 4 mg PO BID 10/02/18 Sitagliptin Phosphate [Januvia] 100 mg PO DAILY 10/02/18 Atenolol [Tenormin] 25 mg PO DAILY 07/05/19 Furosemide [Lasix] 40 mg PO DAILY 07/05/19 Azithromycin [Zithromax] 500 mg PO DAILY #2 tablet 07/06/19 Cephalexin [Keflex] 500 mg PO BID #4 capsule 07/06/19 Cancer: Yes (RECTAL MASS;LIVER METS;GASTRIC NEOPLASM) COPD: No Diabetes: Yes Disorders: Yes (COLON POLYPS) HTN: Yes Thyroid Disease: Yes (THYROID NODULE) - Surgical History Abdominal Surgery: Yes (COLON ANASTOMOSIS) Cholecystectomy: Yes - Psycho Social/Smoking Cessation Hx Smoking History: Unknown if ever smoked Hx Alcohol Use: No Drug/Substance Use Hx: No Substance Use Type: None *Physical Exam - Vital Signs Last Vital Signs Temp Pulse Resp BP Pulse Ox 100.4 F H 71 16 123/49 L 97 07/04/19 18:00 07/04/19 18:00 07/04/19 18:00 07/04/19 18:00 07/04/19 18:00 ED Treatment Course - LABORATORY CBC & Chemistry Diagram: 07/06/19 07:55 07/06/19 07:55 Discharge - Discharge Information Problems reviewed: Yes Clinical Impression/Diagnosis: Pneumonia Condition: Stable Disposition: VNS/HOME HEALTH CARE - Admission Yes - Follow up/Referral - Patient Discharge Instructions - Post Discharge Activity
[2019-07-04] MEDS ORDERED: ACETAMINOPHEN 1000 MG/100 ML VIAL (NON FORMULARY) IVPB ONE (19:40)
[2019-07-04] MEDS ORDERED: CEFTRIAXONE 1 GM in DEXTROSE 5%-WATER - 100 ML IVPB ONE (20:07)
[2019-07-04] MEDS ORDERED: CEFTRIAXONE 1 GM/50 ML BAG ONE (20:25)
[2019-07-04] MEDS ORDERED: ACETAMINOPHEN INJECTION 100 ML IVPB ONE (20:25)
[2019-07-04 20:27] LABS: VENOUS PC02 55.7 mmHg (38-52); VENOUS PH 7.42 (7.31-7.41); VENOUS PO2 < 49 mmHg (28-48)
[2019-07-04 20:31] LABS: BASO % 0.5 % (0-2.0); EOS % 0.6 % (0-4.5); HEMATOCRIT 32.4 % (32.4-45.2); HEMOGLOBIN 10.4 GM/dL (10.7-15.3); LYMPH % 13.7 % (8-40); MCH 26.4 pg (25.7-33.7); MCHC 32.1 g/dl (32.0-36.0); MEAN CELL VOLUME 82.1 fl (80-96); MEAN PLT VOLUME 7.2 fl (7.5-11.1); NEUT % 77.2 % (42.8-82.8); PLATELET COUNT 310 K/MM3 (134-434); RBC 3.95 M/mm3 (3.60-5.2); RDW 16.8 % (11.6-15.6); WHITE BLOOD COUNT 7.8 K/mm3 (4.0-10.0)
[2019-07-04] MEDS ORDERED: AZITHROMYCIN IVPB 500 MG in DEXTROSE 5%-WATER - 250 ML IVPB ONE (20:35)
[2019-07-04 20:39] LABS: INR 1.28 (0.83-1.09); PROTHROMBIN TIME (PATIENT) 15.2 SEC (9.7-13.0)
[2019-07-04 20:58] LABS: ALBUMIN 2.6 g/dl (3.4-5.0); BILIRUBIN,TOTAL 0.9 mg/dL (0.2-1); CREATININE 0.8 mg/dL (0.55-1.3); N-TERMINAL BNP 248.9 pg/ml (5-450); POTASSIUM 3.2 mmol/L (3.5-5.1); TOT PROT 7.3 g/dl (6.4-8.2)
[2019-07-04] MEDS ORDERED: POTASSIUM CHLORIDE TABS 10 MEQ TABLET.ER (FP) PO ONE (21:04)
[2019-07-04] MEDS ORDERED: POTASSIUM CHLORIDE TABS 20 MEQ TABLET.ER (FP) PO ONE (21:16)
[2019-07-04] MEDS ORDERED: AZITHROMYCIN IVPB 500 MG/250 ML BAG IVPB ONE (21:16)
--- NOTE | 2019-07-04 21:44 | PDOC ---
Documentation entered by Roxane Anderson SCRIBE, acting as scribe for Martha Mcclellan MD. Martha Mcclellan MD: This documentation has been prepared by the Justin sanders Nirvannie, SCRIBE, under my direction and personally reviewed by me in its entirety. I confirm that the documentation accurately reflects all work, treatment, procedures, and medical decision making performed by me. Attending Attestation - Resident Resident Name: Adrianne Lay - ED Attending Attestation I have performed the following: I have examined & evaluated the patient, The case was reviewed & discussed with the resident, I agree w/resident's findings & plan - HPI HPI: 07/04/19 19:47 The patient is a year old female, with a significant past medical history of HTN , colon cancer, DM, and prior thyroid nodule, who presents to the emergency department with, 1 week of shortness of breath, swelling to the blt LE and abdomen. She denies recent fevers, chills, headache or dizziness. She denies recent nausea, vomit, diarrhea or constipation. She denies recent dysuria, frequency, urgency or hematuria. Allergies: NKDA Primary Care Physician: Dr. Crump - Physicial Exam PE: 07/04/19 21:18 GENERAL: Awake, alert, and fully oriented, in no acute distress. Not warm to touch. HEAD: No signs of trauma EYES: PERRLA, EOMI, sclera anicteric, conjunctiva clear ENT: Auricles normal inspection, hearing grossly normal, nares patent, oropharynx clear without exudates. Moist mucosa NECK: Normal ROM, supple, no lymphadenopathy, JVD, or masses LUNGS: Decreased breath soinds to the right base. No wheezes, and no crackles HEART: Regular rate and rhythm, normal S1 and S2, no murmurs, rubs or gallops ABDOMEN: Obese. Old large surgicalscar to the infraumbilicus. Soft, nontender, normoactive bowel sounds. No guarding, no rebound. No masses EXTREMITIES: Normal range of motion. 1+ LE edema. No clubbing or cyanosis. No cords, erythema, or tenderness NEUROLOGICAL: Cranial nerves II through XII grossly intact. Normal speech SKIN: Warm, Dry, normal turgor, no rashes or lesions noted. - Medical Decision Making 07/04/19 19:44 Pt has a hx of metastatic colon cancer; as of May 2019, she has had worsening metastasis to the liver. Pt has hx of pleural effusion. 07/04/19 19:46 Pt is febrile and she will get blood cultures. 07/04/19 21:43 Labs normal; hypoK+; we will replete. LFTs slight elevation; no pain in RUQ; likely due to worsening ets. Pt has a hx of cholecystectomy 07/05/19 01:19 Pt will be admitted for right sided pneumonia, and SOB and fever.
--- NOTE | 2019-07-04 23:30 | PN ---
Teaching Attending Note Name of Resident: Adrianne Meredith ATTENDING PHYSICIAN STATEMENT I saw and evaluated the patient. I reviewed the resident's note and discussed the case with the resident. I agree with the resident's findings and plan as documented. SUBJECTIVE: 84-year-old woman with a history of colon ca status post sigmoid resection, believed to have metastatic disease. Unclear course of treatment. Patient was followed previously by Dr. Galicia, however unclear if chemotherapy was ever received. Patient now presented with increasing shortness of breath for the past several days. She denied any subjective fevers or chills but was found to have a fever in the ER of 100.4 Fahrenheit. She denied any pain with urination or changes in bowel movements. No sick contacts or history of travel recently. OBJECTIVE: Last Vital Signs Temp Pulse Resp BP Pulse Ox 100.4 F H 77 16 123/49 L 96 07/04/19 18:00 07/04/19 20:31 07/04/19 18:00 07/04/19 18:00 07/04/19 20:31 GENERAL: Well developed, well nourished. Awake and alert. No acute distress. HEENT: Normocephalic, atraumatic. PERRLA, EOMI. No conjunctival pallor. Sclera are non- icteric. Moist mucous membranes. Oropharynx is clear. NECK: Supple. Full ROM. No JVD. Carotid pulses 2+ and symmetric, without bruits. No thyromegaly. No lymphadenopathy. CARDIOVASCULAR: Regular rate and rhythm. No murmurs, rubs, or gallops. Distal pulses are 2+ and symmetric. PULMONARY: Decreased breath sounds over right base ABDOMINAL: Soft, nontender, right lower quadrant scar, no masses palpated, no tenderness on palpation MUSCULOSKELETAL Normal range of motion at all joints. No bony deformities or tenderness. No CVA tenderness. EXTREMITIES: 2+ pitting edema up to knees bilaterally SKIN: Warm and dry. Normal capillary refill. No rashes. No jaundice. PSYCHIATRIC: Cooperative. Good eye contact. Appropriate mood and affect. Abnormal Lab Results 07/04/19 07/04/19 07/04/19 20:10 20:10 20:10 Hgb 10.4 L RDW 16.8 H MPV 7.2 L PT with INR INR VBG pH POC VBG pCO2 POC VBG pO2 VBG HCO3 VBG O2 Sat (Nancy) VBG Base Excess Potassium 3.2 L Chloride 96 L Carbon Dioxide 33 H Lactic Acid 2.3 H* AST 116 H Alkaline Phosphatase 281 H Albumin 2.6 L 07/04/19 07/04/19 20:10 20:10 Hgb RDW MPV PT with INR 15.20 H INR 1.28 H VBG pH 7.42 H POC VBG pCO2 55.7 H POC VBG pO2 < 49 H VBG HCO3 35.8 H VBG O2 Sat (Nancy) 42.4 L VBG Base Excess 10.2 H Potassium Chloride Carbon Dioxide Lactic Acid AST Alkaline Phosphatase Albumin Imaging reviewed EKG reviewed- Noted to have Q waves in the inferior leads as well as left axis deviation. ASSESSMENT AND PLAN: 84-year-old woman with advanced colon cancer with mets suspected to have anasarca with large right lung pleural effusion with compressive atelectasis. Likely to have abdominal ascites as well. Bilateral lower extremity edema. Hypoalbuminemia. I suspect lactic acidosis may be secondary to malignancy. Cannot rule out underlying community-acquired pneumonia. Lactic acidosis may be also secondary to underlying infection. Patient is stable for admission to [facility]. Positive leukocytosis. Would rule out PE given acute shortness of breath and underlying malignancy. Admit to [facility] Sputum culture Blood cultures Urine Legionella antigen Ceftriaxone and azithromycin for suspected community acquired pneumonia Furosemide 40 mg IV twice daily for fluid overload Heme-onc follow-up with Monitor I's and O's Daily weights CTA of chest abdomen and pelvis to rule out PE as well as check for evidence of new metastasis. Would also confirm suspected ascites. Pulmonary consult for thoracocentesis of right pleural effusion and would send work-up of pleural fluid. Suspect possible malignant pleural effusion. Lower extremity duplex to rule out DVT Protein supplement for hypo-albumin anemia Supplement potassium Trend lactate #HTN #DM- insulin sliding scale Lovenox subcu for DVT prophylaxis
--- NOTE | 2019-07-04 23:32 | HP ---
CHIEF COMPLAINT: abdominal & LE edema PCP: Dr. Crump. Daycare Director: Dr. Delarosa HISTORY OF PRESENT ILLNESS: 84 y.o. F PMH HTN, diastolic CHF, metastatic colon cancer s/p sigmoidectomy in 2011 ([facility]IST), DM type 2, multinodular goiter presenting with 1 week of increasing lower extremity and abdominal edema as well as shortness of breath. She says that this episode of edema is new although she normally "gets swollen sometimes". Patient was seen at [facility] in September 2018 when imaging revealed her colon cancer had metastasized to the liver. Pt followed w/ Dr. Galicia heme/ onc , unsure of treatment course (chemo/rads?). At baseline the patient is short of breath after walking a few blocks but now gets short of breath walking from 1 room to the next in her home. On ROS: + SOB, generalized edema mainly abdomen & LE's, appetite loss x 1 month Denies headaches/ chest pain/ chills/ nausea/ vomiting/ diarrhea/ polyuria/ hematuria/ dysuria/ myalgias/ parasthesias/ weight changes. ER course was notable for: (1) Tmax 100.4F; 1g IV tylenol (2) 1g rocephin, 500mg zithromax (3) Kdur 20meq Recent Travel: denies PAST MEDICAL HISTORY: as per HPI PAST SURGICAL HISTORY: sigmoidectomy in 2011, cholecystectomy, 2x c-sxns Social History: lives alone. has good family support system. Smoking: denies Alcohol: denies Drugs: denies Allergies No Known Allergies Allergy (Verified 07/04/19 18:41) HOME MEDICATIONS: Home Medications Medication Instructions Recorded Amlodipine Besylate 10 mg PO DAILY 10/02/18 Aspirin 81 mg PO DAILY 10/02/18 Glimepiride 4 mg PO DAILY 10/02/18 Sitagliptin Phosphate [Januvia] 50 mg PO DAILY 10/02/18 Cefuroxime Axetil [Cefuroxime] 500 mg PO BID #4 tablet 10/08/18 PHYSICAL EXAMINATION Vital Signs - 24 hr 07/04/19 07/04/19 18:00 20:31 Temperature 100.4 F H Pulse Rate 71 77 Respiratory 16 Rate Blood Pressure 123/49 L O2 Sat by Pulse 97 96 Oximetry (%) GENERAL: Awake, alert, and fully oriented, in no acute distress. HEENT: NCAT. Poor oral hygiene. Sclera anicteric. LUNGS: RLL decreased breath sounds. Increased work of breathing noted. HEART: RRR. + murmur. ABDOMEN: Soft, nontender. Grossly distended. Right lower and midline quadrant scar present s/p sigmoidectomy. Bowel sounds +. + fluid wave. UPPER EXTREMITIES: 2+ pulses. No peripheral edema. LOWER EXTREMITIES: 2+ pitting edema b/l LE's R>L. 2+ pulses. No calf tenderness. PSYCHIATRIC: Appropriate mood and affect. Laboratory Results - last 24 hr 07/04/19 07/04/19 07/04/19 20:10 20:10 20:10 WBC 7.8 RBC 3.95 Hgb 10.4 L Hct 32.4 MCV 82.1 MCH 26.4 D MCHC 32.1 RDW 16.8 H Plt Count 310 D MPV 7.2 L Absolute Neuts (auto) 6.0 Neutrophils % 77.2 Lymphocytes % 13.7 D Monocytes % 8.0 Eosinophils % 0.6 Basophils % 0.5 Nucleated RBC % 0 PT with INR INR PTT (Actin FS) VBG pH POC VBG pCO2 POC VBG pO2 VBG HCO3 VBG O2 Sat (Nancy) VBG Base Excess Sodium 137 Potassium 3.2 L Chloride 96 L Carbon Dioxide 33 H Anion Gap 8 BUN 18.0 Creatinine 0.8 Est GFR (CKD-EPI)AfAm 77.92 Est GFR (CKD-EPI)NonAf 67.23 Random Glucose 82 Lactic Acid Calcium 9.0 Total Bilirubin 0.9 AST 116 H ALT 32 Alkaline Phosphatase 281 H Troponin I < 0.02 B-Natriuretic Peptide 248.9 Total Protein 7.3 Albumin 2.6 L 07/04/19 07/04/19 07/04/19 20:10 20:10 20:10 WBC RBC Hgb Hct MCV MCH MCHC RDW Plt Count MPV Absolute Neuts (auto) Neutrophils % Lymphocytes % Monocytes % Eosinophils % Basophils % Nucleated RBC % PT with INR 15.20 H INR 1.28 H PTT (Actin FS) 30.3 VBG pH POC VBG pCO2 POC VBG pO2 VBG HCO3 VBG O2 Sat (Nancy) VBG Base Excess Sodium Potassium Chloride Carbon Dioxide Anion Gap BUN Creatinine Est GFR (CKD-EPI)AfAm Est GFR (CKD-EPI)NonAf Random Glucose Lactic Acid 2.3 H* Calcium Total Bilirubin AST ALT Alkaline Phosphatase Troponin I B-Natriuretic Peptide Total Protein Albumin 07/04/19 20:10 WBC RBC Hgb Hct MCV MCH MCHC RDW Plt Count MPV Absolute Neuts (auto) Neutrophils % Lymphocytes % Monocytes % Eosinophils % Basophils % Nucleated RBC % PT with INR INR PTT (Actin FS) VBG pH 7.42 H POC VBG pCO2 55.7 H POC VBG pO2 < 49 H VBG HCO3 35.8 H VBG O2 Sat (Nancy) 42.4 L VBG Base Excess 10.2 H Sodium Potassium Chloride Carbon Dioxide Anion Gap BUN Creatinine Est GFR (CKD-EPI)AfAm Est GFR (CKD-EPI)NonAf Random Glucose Lactic Acid Calcium Total Bilirubin AST ALT Alkaline Phosphatase Troponin I B-Natriuretic Peptide Total Protein Albumin CT abd/ pel 05/25/19: 1. Moderate right pleural effusion that has increased since 10/02/2018. 2. Development of bilateral lower lobe pulmonary nodules. CT chest follow-up recommended. 3. Marked increase in hepatic metastases. A trace amount of ascites has developed about the liver. 4. No additional evidence of metastatic disease or significant change since previous exam. Please see above discussion. ASSESSMENT/PLAN: 84 y.o. F PMH HTN, diastolic CHF, metastatic colon cancer s/p sigmoidectomy in 2011 ([facility]), DM type 2, multinodular goiter presenting with 1 week of increasing lower extremity and abdominal edema and shortness of breath. #Anasarca 2/2 likely metastases -F/u CTA abd/ pel -F/u pulm recs-- thoracentesis? -40mg IV Lasix daily -Is & Os -Daily weights -F/u AM labs: cbc, cmp, lactate -Heme/onc consulted: Dr. Frida Singh #R pleural effusion -S/p 1 dose rocephin/ zithromax in ED -C/w abx: rocephin, axithromycin -Pulm consulted (Dr. Palomo) -low grade fever 100.4F tmax; no leukocytosis -F/u flu test, blood/urine/sputum cultures/ legionella & s. pneumo urine ag -CTA chest-- no PE noted- f/u final read #Diastolic CHF -F/u echo-- r/o pericardial eff -c/w lasix #DM -ISS -BGMs -Holding home oral agents #FEN -no fluids at this time -hypokalemic; repleting -NPO pending poss thoracentesis #DVT PPX -F/u LE U/S; holding chemical ac in setting of possible thoracentesis #Dispo med surg Visit type - Emergency Visit Emergency Visit: Yes ED Registration Date: 07/04/19 Care time: The patient presented to the Emergency Department on the above date and was hospitalized for further evaluation of their emergent condition. - New Patient This patient is new to me today: Yes Date on this admission: 07/05/19 - Critical Care Critical Care patient: No ATTENDING PHYSICIAN STATEMENT I saw and evaluated the patient. I reviewed the resident's note and discussed the case with the resident. I agree with the resident's findings and plan as documented. SUBJECTIVE: OBJECTIVE: ASSESSMENT AND PLAN:
[2019-07-04] MEDS ORDERED: FUROSEMIDE 40 MG/4 ML INJECTABLE VIAL IVPUSH STA (23:41)
[2019-07-05] MEDS ORDERED: FUROSEMIDE 40 MG/4 ML INJECTABLE VIAL ONE (00:58)
[2019-07-05] MEDS ORDERED: KCL 10 MEQ IVPB 10 MEQ/100 ML INFUS.BAG IVPB ONE (00:58)
[2019-07-05] MEDS: KCL 10 MEQ IVPB 10 MEQ/100 ML INFUS.BAG IVPB SCH ×3 (01:25→05:27)
[2019-07-05 01:36] LABS: HYALINE CASTS 1 /lpf (0-8); PH,URINE 5.5 (5.0-8.0); URINE APPEARANCE CLOUDY; URINE BACTERIA 541.4 /hpf (NEGATIVE); URINE BILIRUBIN NEGATIVE (NEGATIVE); URINE COLOR YELLOW; URINE GLUCOSE (UA) NEGATIVE (NEGATIVE); URINE KETONE NEGATIVE (NEGATIVE); URINE LEUK ESTERASE TRACE (NEGATIVE); URINE NITRITE POSITIVE (NEGATIVE); URINE PROTEIN NEGATIVE (NEGATIVE); URINE WBC 6 /hpf (0-5)
[2019-07-05 02:15] LABS: URINE RBC 0 /hpf (0-4)
[2019-07-05] MEDS ORDERED: MORPHINE SULFATE 2 MG/ML VIAL IVPUSH PRN (06:21)
[2019-07-05] MEDS: INSULIN SLIDING SCALE (NOVOLOG) 1 VIAL SQ SCH ×4 (06:25→22:35)
[2019-07-05 07:42] LABS: HEMATOCRIT 30.8 % (32.4-45.2); HEMOGLOBIN 10.1 GM/dL (10.7-15.3); MCH 26.7 pg (25.7-33.7); MCHC 32.9 g/dl (32.0-36.0); MEAN CELL VOLUME 81.2 fl (80-96); MEAN PLT VOLUME 6.9 fl (7.5-11.1); PLATELET COUNT 305 K/MM3 (134-434); RBC 3.79 M/mm3 (3.60-5.2); RDW 16.7 % (11.6-15.6); WHITE BLOOD COUNT 7.5 K/mm3 (4.0-10.0)
[2019-07-05 08:11] LABS: ALBUMIN 2.4 g/dl (3.4-5.0); BILIRUBIN,TOTAL 0.8 mg/dL (0.2-1); BLOOD UREA NITROGEN 12.4 mg/dL (7-18); CALCIUM 9.4 mg/dL (8.5-10.1); CREATININE 0.6 mg/dL (0.55-1.3); MAGNESIUM 1.3 mg/dL (1.8-2.4); PHOSPHOROUS 2.7 mg/dL (2.5-4.9); POTASSIUM 3.6 mmol/L (3.5-5.1); TOT PROT 6.8 g/dl (6.4-8.2)
[2019-07-05] MEDS ORDERED: FUROSEMIDE 40 MG TABLET (FP) PO SCH (10:00)
[2019-07-05] MEDS ORDERED: POTASSIUM CHLORIDE TABS 20 MEQ TABLET.ER (FP) PO ONE (10:26)
[2019-07-05] MEDS ORDERED: MAGNESIUM SULF 50% (8.12 MEQ/2 ML-1 GM VIAL) IVPB ONE (10:27)
[2019-07-05] MEDS: FUROSEMIDE 40 MG/4 ML INJECTABLE VIAL IVPUSH SCH (11:38)
--- NOTE | 2019-07-05 13:49 | CON.PULM ---
Consult Consult Specialty:: PULMONARY Referred by:: Dr Fernandez Reason for Consultation:: pleural effusion - History of Present Illness Chief Complaint: shortness of breath History of Present Illness: 84yo female with h/o HTN, DM, LV Diastolic Dysfunction, Metastatic Colon Ca who was admitted with worsening shortness of breath x 1 week. Denies chest pain or palpitations. No cough or wheezing. Had a low grade fever to 100.[address] chest done showing moderate/large right sided effusion new since last imaging in September. She states she had an abdominal paracentesis here last year but do not see a record of it. She is a never smoker. Lives alone, has grandchildren who live nearby. - History Source History Provided By: Patient, Medical Record Limitations to Obtaining History: No Limitations - Past Medical History Cardio/Vascular: Yes: HTN Gastrointestinal: Yes: Cancer ...: No - Alcohol/Substance Use Hx Alcohol Use: No - Smoking History Smoking history: Unknown if ever smoked Have you smoked in the past 12 months: No Home Medications - Allergies Allergies/Adverse Reactions: Allergies Allergy/AdvReac Type Severity Reaction Status Date / Time No Known Allergies Allergy Verified 07/04/19 18:41 - Home Medications Home Medications: Ambulatory Orders Amlodipine Besylate 10 mg PO DAILY 10/02/18 Aspirin 81 mg PO DAILY 10/02/18 Glimepiride 4 mg PO DAILY 10/02/18 Sitagliptin Phosphate [Januvia] 50 mg PO DAILY 10/02/18 Cefuroxime Axetil [Cefuroxime] 500 mg PO BID #4 tablet 10/08/18 Review of Systems - Review of Systems Constitutional: reports: Fever. denies: Weakness Eyes: denies: Recent Change in Vision HENT: denies: Nasal Congestion, Throat Pain Neck: denies: Stiffness, Tenderness Cardiovascular: reports: Edema, Shortness of Breath. denies: Chest Pain Respiratory: reports: SOB, SOB on Exertion. denies: Wheezing Gastrointestinal: denies: Abdominal Pain, Nausea, Vomiting Genitourinary: denies: Dysuria, Hematuria Neurological: denies: Dizziness, Headache Endocrine: denies: Unexplained Weight Loss Physical Exam Vital Sings: Vital Signs Temperature 98.2 F 07/05/19 09:00 Pulse Rate 75 07/05/19 09:00 Respiratory Rate 17 07/05/19 09:00 Blood Pressure 146/63 07/05/19 09:00 O2 Sat by Pulse Oximetry (%) 95 07/05/19 03:03 Constitutional: Yes: Calm Eyes: Yes: Conjunctiva Clear, EOM Intact HENT: Yes: Atraumatic, Normocephalic Neck: Yes: Supple, Trachea Midline Cardiovascular: Yes: Regular Rate and Rhythm Respiratory: Yes: Diminished (decreased breath sounds 2/3 up right) ...Clubbing: No Gastrointestinal: Yes: Normal Bowel Sounds, Soft. No: Tenderness Edema: No Peripheral Pulses WNL: No Neurological: Yes: Alert, Oriented Labs: CBC, BMP 07/05/19 07:10 07/05/19 07:10 Imaging - Results Chest X-ray: Report Reviewed, Image Reviewed Cat Scan: Report Reviewed, Image Reviewed (moderate-large right pleural effusion ) Assessment/Plan Right Pleural Effusion - r/o Malignant Metastatic Colon Ca r/o Pneumonia UTI Lactic Acidosis LV Diastolic Dysfunction HTN DM Goiter - agree with diagnostic/therapeutic thoracentesis - continue antibiotics - f/u cultures - echocardiogram - monitor urine output, creatinine - O2 to keep SpO2 >90% - DVT prophylaxis Thank you for this consult Jose Rueda MD
--- NOTE | 2019-07-05 14:46 | ECHO ---
Name: MICHAEL CORREA Exam:Adult Echocardiogram Study Date: 07/05/2019 10:24 AM Age: 84 yrs Reason For Study: CHF Height: 66 in Weight: 181 lb BSA: 1.9 m2 MMode/2D Measurements & Calculations IVSd: 0.84 cm Ao root diam: 2.7 cm LVIDd: 4.7 cm LVIDs: 3.0 cm LVPWd: 0.76 cm EDV(Teich): 100.8 ml LVOT diam: 2.1 cm ESV(Teich): 35.1 ml Doppler Measurements & Calculations MV E max zuiel: 53.3 cm/sec Ao V2 max: 130.3 cm/sec MV A max uziel: 106.6 cm/sec Ao max P.8 mmHg MV E/A: 0.50 MV dec time: 0.29 sec FERMIN(V,D): 2.7 cm2 LV V1 max P.2 mmHg TR max uziel: 231.0 cm/sec LV V1 max: 102.2 cm/sec TR max P.4 mmHg Med Peak E' Uziel: 5.5 cm/sec Med E/e': 9.7 Lat Peak E' Uziel: 7.2 cm/sec Lat E/e': 7.4 Procedure A complete two-dimensional transthoracic echocardiogram was performed (2D, M-mode, Doppler and color flow Doppler). Left Ventricle The left ventricle is normal in size. Left ventricular systolic function is normal. Ejection Fraction = 60- 65%. Grade I diastolic dysfunction, (abnormal relaxation pattern). Ratio E/E'= 9. No regional wall mo tion abnormalities noted. Right Ventricle The right ventricle is normal size. The right ventricular systolic function is normal. RV systolic TD I is 10 cm/s. Atria The left atrial size is normal. Right atrial size is normal. Mitral Valve There is mild mitral annular calcification. There is no mitral regurgitation noted. Tricuspid Valve The tricuspid valve is normal in structure and function. There is mild tricuspid regurgitation. Pulmo nary artery systolic pressure is at least 27 mmHg if RA pressure is assumed 3 mmHg. Aortic Valve There is mild aortic sclerosis.;. No aortic regurgitation is present. Pulmonic Valve The pulmonic valve is not well visualized. Great Vessels The aortic root is normal size. Pericardium/Pleura Small pericardial effusion (<1cm). Interpretation Summary The left ventricle is normal in size. Left ventricular systolic function is normal. No regional wall motion abnormalities noted. Ejection Fraction = 60-65%. Grade I diastolic dysfunction, (abnormal relaxation pattern). Ratio E/E'= 9 The right ventricular systolic function is normal. The left atrial size is normal. Right atrial size is normal. There is mild mitral annular calcification. There is mild tricuspid regurgitation. Pulmonary artery systolic pressure is at least 27 mmHg if RA pressure is assumed 3 mmHg There is mild aortic sclerosis. Small pericardial effusion (<1cm) Rony Rdz MD 07/05/2019 02:45 PM
--- NOTE | 2019-07-05 15:55 | EKG ---
Test Reason : Blood Pressure : / mmHG Vent. Rate : 074 BPM Atrial Rate : 074 BPM P-R Int : 128 ms QRS Dur : 082 ms QT Int : 380 ms P-R-T Axes : 078 -31 030 degrees QTc Int : 421 ms NORMAL SINUS RHYTHM LEFT AXIS DEVIATION ABNORMAL ECG WHEN COMPARED WITH ECG OF 02-OCT-2018 10:23, Confirmed by TONI SILVEIRA MD ([id number]) on 07/05/2019 3:54:40 PM Referred By: Confirmed By:TONI SILVEIRA MD
[2019-07-05 16:02] LABS: BF WBC & OTHER NUCLEATED CELLS 387 /mm3
[2019-07-05 16:57] LABS: BODY FLUID BASOPHIL 0 %; BODY FLUID HISTIOCYTES 0 %; BODY FLUID MACROPHAGES 54 %; BODY FLUID MESOTHELIAL 1 %; BODY FLUID MONOCYTE 2 %; BODY FLUID PLASMA CELL 0 %; BODYL FLD EOSINOPHIL 0 %
--- NOTE | 2019-07-05 17:08 | PN ---
Teaching Attending Note Name of Resident: Master Monk ATTENDING PHYSICIAN STATEMENT I saw and evaluated the patient. I reviewed the resident's note and discussed the case with the resident. I agree with the resident's findings and plan as documented. SUBJECTIVE: Patient feels SOB. OBJECTIVE: Vital Signs Period Temp Pulse Resp BP Sys/King Pulse Ox Last 24 Hr 98.1 F-100.4 F 69-79 16-19 122-152/49-67 95-97 HEART: S1S2, RRR LUNGS: Clear with decreased BS 1/2 way up on right ABDOMEN: Soft, non-tender, non-distended, normal BS EXTREMITIES: 2+ edema Laboratory Results - last 24 hr 07/04/19 07/04/19 07/04/19 13:50 20:10 20:10 WBC 7.8 RBC 3.95 Hgb 10.4 L Hct 32.4 MCV 82.1 MCH 26.4 D MCHC 32.1 RDW 16.8 H Plt Count 310 D MPV 7.2 L Absolute Neuts (auto) 6.0 Neutrophils % 77.2 Lymphocytes % 13.7 D Monocytes % 8.0 Eosinophils % 0.6 Basophils % 0.5 Nucleated RBC % 0 PT with INR INR PTT (Actin FS) VBG pH POC VBG pCO2 POC VBG pO2 VBG HCO3 VBG O2 Sat (Nancy) VBG Base Excess Sodium 137 Potassium 3.2 L Chloride 96 L Carbon Dioxide 33 H Anion Gap 8 BUN 18.0 Creatinine 0.8 Est GFR (CKD-EPI)AfAm 77.92 Est GFR (CKD-EPI)NonAf 67.23 POC Glucometer Random Glucose 82 Lactic Acid Calcium 9.0 Phosphorus Magnesium Total Bilirubin 0.9 AST 116 H ALT 32 Alkaline Phosphatase 281 H Troponin I B-Natriuretic Peptide 248.9 Total Protein 7.3 Albumin 2.6 L Urine Color Urine Appearance Urine pH Ur Specific Babcock Urine Protein Urine Glucose (UA) Urine Ketones Urine Blood Urine Nitrite Urine Bilirubin Urine Urobilinogen Ur Leukocyte Esterase Urine WBC (Auto) Urine RBC (Auto) Urine Casts (Auto) U Epithel Cells (Auto) Urine Bacteria (Auto) Fluid Source Fluid WBC Fluid RBC Influenza A (Rapid) Negative Influenza B (Rapid) Negative 07/04/19 07/04/19 07/04/19 20:10 20:10 20:10 WBC RBC Hgb Hct MCV MCH MCHC RDW Plt Count MPV Absolute Neuts (auto) Neutrophils % Lymphocytes % Monocytes % Eosinophils % Basophils % Nucleated RBC % PT with INR INR PTT (Actin FS) 30.3 VBG pH POC VBG pCO2 POC VBG pO2 VBG HCO3 VBG O2 Sat (Nancy) VBG Base Excess Sodium Potassium Chloride Carbon Dioxide Anion Gap BUN Creatinine Est GFR (CKD-EPI)AfAm Est GFR (CKD-EPI)NonAf POC Glucometer Random Glucose Lactic Acid 2.3 H* Calcium Phosphorus Magnesium Total Bilirubin AST ALT Alkaline Phosphatase Troponin I < 0.02 B-Natriuretic Peptide Total Protein Albumin Urine Color Urine Appearance Urine pH Ur Specific Babcock Urine Protein Urine Glucose (UA) Urine Ketones Urine Blood Urine Nitrite Urine Bilirubin Urine Urobilinogen Ur Leukocyte Esterase Urine WBC (Auto) Urine RBC (Auto) Urine Casts (Auto) U Epithel Cells (Auto) Urine Bacteria (Auto) Fluid Source Fluid WBC Fluid RBC Influenza A (Rapid) Influenza B (Rapid) 07/04/19 07/04/19 07/05/19 20:10 20:10 01:25 WBC RBC Hgb Hct MCV MCH MCHC RDW Plt Count MPV Absolute Neuts (auto) Neutrophils % Lymphocytes % Monocytes % Eosinophils % Basophils % Nucleated RBC % PT with INR 15.20 H INR 1.28 H PTT (Actin FS) VBG pH 7.42 H POC VBG pCO2 55.7 H POC VBG pO2 < 49 H VBG HCO3 35.8 H VBG O2 Sat (Nancy) 42.4 L VBG Base Excess 10.2 H Sodium Potassium Chloride Carbon Dioxide Anion Gap BUN Creatinine Est GFR (CKD-EPI)AfAm Est GFR (CKD-EPI)NonAf POC Glucometer Random Glucose Lactic Acid Calcium Phosphorus Magnesium Total Bilirubin AST ALT Alkaline Phosphatase Troponin I B-Natriuretic Peptide Total Protein Albumin Urine Color Yellow Urine Appearance Cloudy Urine pH 5.5 Ur Specific Babcock 1.009 L Urine Protein Negative Urine Glucose (UA) Negative Urine Ketones Negative Urine Blood Negative Urine Nitrite Positive H Urine Bilirubin Negative Urine Urobilinogen 1.0 Ur Leukocyte Esterase Trace Urine WBC (Auto) 6 Urine RBC (Auto) 0 Urine Casts (Auto) 1 U Epithel Cells (Auto) 2.0 Urine Bacteria (Auto) 541.4 Fluid Source Fluid WBC Fluid RBC Influenza A (Rapid) Influenza B (Rapid) 07/05/19 07/05/19 07/05/19 05:50 06:48 07:10 WBC RBC Hgb Hct MCV MCH MCHC RDW Plt Count MPV Absolute Neuts (auto) Neutrophils % Lymphocytes % Monocytes % Eosinophils % Basophils % Nucleated RBC % PT with INR INR PTT (Actin FS) VBG pH POC VBG pCO2 POC VBG pO2 VBG HCO3 VBG O2 Sat (Nancy) VBG Base Excess Sodium Potassium Chloride Carbon Dioxide Anion Gap BUN Creatinine Est GFR (CKD-EPI)AfAm Est GFR (CKD-EPI)NonAf POC Glucometer 70 79 Random Glucose Lactic Acid 1.8 Calcium Phosphorus Magnesium Total Bilirubin AST ALT Alkaline Phosphatase Troponin I B-Natriuretic Peptide Total Protein Albumin Urine Color Urine Appearance Urine pH Ur Specific Babcock Urine Protein Urine Glucose (UA) Urine Ketones Urine Blood Urine Nitrite Urine Bilirubin Urine Urobilinogen Ur Leukocyte Esterase Urine WBC (Auto) Urine RBC (Auto) Urine Casts (Auto) U Epithel Cells (Auto) Urine Bacteria (Auto) Fluid Source Fluid WBC Fluid RBC Influenza A (Rapid) Influenza B (Rapid) 07/05/19 07/05/19 07/05/19 07:10 07:10 11:36 WBC 7.5 RBC 3.79 Hgb 10.1 L Hct 30.8 L MCV 81.2 MCH 26.7 MCHC 32.9 RDW 16.7 H Plt Count 305 MPV 6.9 L Absolute Neuts (auto) Neutrophils % Lymphocytes % Monocytes % Eosinophils % Basophils % Nucleated RBC % PT with INR INR PTT (Actin FS) VBG pH POC VBG pCO2 POC VBG pO2 VBG HCO3 VBG O2 Sat (Nancy) VBG Base Excess Sodium 139 Potassium 3.6 Chloride 96 L Carbon Dioxide 36 H Anion Gap 7 L BUN 12.4 Creatinine 0.6 Est GFR (CKD-EPI)AfAm 96.33 Est GFR (CKD-EPI)NonAf 83.11 POC Glucometer 71 Random Glucose 76 Lactic Acid Calcium 9.4 Phosphorus 2.7 Magnesium 1.3 L Total Bilirubin 0.8 AST 113 H ALT 29 Alkaline Phosphatase 272 H Troponin I B-Natriuretic Peptide Total Protein 6.8 Albumin 2.4 L Urine Color Urine Appearance Urine pH Ur Specific Babcock Urine Protein Urine Glucose (UA) Urine Ketones Urine Blood Urine Nitrite Urine Bilirubin Urine Urobilinogen Ur Leukocyte Esterase Urine WBC (Auto) Urine RBC (Auto) Urine Casts (Auto) U Epithel Cells (Auto) Urine Bacteria (Auto) Fluid Source Fluid WBC Fluid RBC Influenza A (Rapid) Influenza B (Rapid) 07/05/19 13:56 WBC RBC Hgb Hct MCV MCH MCHC RDW Plt Count MPV Absolute Neuts (auto) Neutrophils % Lymphocytes % Monocytes % Eosinophils % Basophils % Nucleated RBC % PT with INR INR PTT (Actin FS) VBG pH POC VBG pCO2 POC VBG pO2 VBG HCO3 VBG O2 Sat (Anncy) VBG Base Excess Sodium Potassium Chloride Carbon Dioxide Anion Gap BUN Creatinine Est GFR (CKD-EPI)AfAm Est GFR (CKD-EPI)NonAf POC Glucometer Random Glucose Lactic Acid Calcium Phosphorus Magnesium Total Bilirubin AST ALT Alkaline Phosphatase Troponin I B-Natriuretic Peptide Total Protein Albumin Urine Color Urine Appearance Urine pH Ur Specific Babcock Urine Protein Urine Glucose (UA) Urine Ketones Urine Blood Urine Nitrite Urine Bilirubin Urine Urobilinogen Ur Leukocyte Esterase Urine WBC (Auto) Urine RBC (Auto) Urine Casts (Auto) U Epithel Cells (Auto) Urine Bacteria (Auto) Fluid Source Pleural Fluid WBC 387 Fluid RBC 1388 Influenza A (Rapid) Influenza B (Rapid) Current Medications Generic Name Dose Route Start Last Admin Trade Name Freq PRN Reason Stop Dose Admin Amlodipine Besylate 10 mg 07/06/19 10:00 Norvasc - PO DAILY [facility] Aspirin 81 mg 07/06/19 10:00 Asa - PO DAILY [facility] Atenolol 25 mg 07/06/19 10:00 Tenormin - PO DAILY [facility] Furosemide 40 mg 07/05/19 10:00 07/05/19 11:38 Lasix Injection - IVPUSH 40 mg DAILY [facility] Administration Azithromycin 500 mg in 250 mls @ 250 mls/hr 07/05/19 20:00 Zithromax 500mg Ivpb (Pre-Docked) IVPB DAILY [facility] Ceftriaxone Sodium 1 gm/ 50 mls @ 100 mls/hr 07/05/19 20:00 Dextrose IVPB DAILY@2000 [facility] Insulin Aspart 1 vial 07/05/19 07:00 07/05/19 11:50 Novolog Vial Sliding Scale - SQ Not Given ACHS [facility] Protocol Morphine Sulfate 2 mg 07/05/19 06:21 Morphine Sulfate IVPUSH Q4H PRN PAIN LEVEL 7 - 10 ASSESSMENT AND PLAN: This is an 84 year old woman with a history of HTN, chronic diastolic heart failure, metastatic colon cancer, sigmoid resection, type 2 DM, multinodular goiter who presented to the ED with increasing edema and shortness of breath. 1. Right pleural effusion - Likely malignant, ? acute CHF - Plan for thoracentesis - CT C/A/P shows enlarged heterogeneous thyroid with large left lobe mass, multiple lung nodules, large right effusion, diffuse liver metastases, perihepatic ascites, pathologic right 10th rib fracture, diverticulosis, partial sigmoid resection - Doubt pneumonia - Continue ceftriaxone, azithromycin for now - Continue Lasix IV 2. Lactic acidosis - Improved 3. Chronic diastolic heart failure - Echo shows normal LV, LVEF 60-65%, grade I diastolic dysfunction, normal RV , mild TR, small pericardial effusion - Continue Lasix 4. Type 2 DM - Januvia, glimepiride held - Continue Novolog sliding scale 5. HTN - Continue Atenolol, Norvasc, Lasix 6. Metastatic colon cancer 7. Thyroid mass
--- NOTE | 2019-07-05 17:23 | PN ---
Physical Exam: SUBJECTIVE: Patient seen and examined. KYLIEDonON. Endorses improvement in breathing. Able to tolerate lying supine OBJECTIVE: Vital Signs Period Temp Pulse Resp BP Sys/King Pulse Ox Last 24 Hr 98.1 F-100.4 F 69-79 16-19 122-152/49-67 95-97 GENERAL: The patient is awake, alert. HEAD: Normal with no signs of trauma. Moderate temporal wasting EYES: sclera anicteric, conjunctiva clear ENT: Ears normal, nares patent, moist mucous membranes. NECK: Trachea midline, full range of motion, supple. LUNGS: weak lung sounds bilaterally, no wheezes, no crackles, no accessory muscle use. HEART: Regular rate and rhythm, S1, S2 without murmur, rub or gallop. ABDOMEN: midline surgical scar. Soft, nontender, no guarding, no rebound, no masses, mildly ascitic abd with rectus diastasis. EXTREMITIES: 1+ pulses, warm, well-perfused, anasarca to bl UE and BLE. NEUROLOGICAL: Normal speech. PSYCH: Normal mood, normal affect. SKIN: Warm, dry, normal turgor, no rashes or lesions noted Laboratory Results - last 24 hr 07/04/19 07/04/19 07/04/19 13:50 20:10 20:10 WBC 7.8 RBC 3.95 Hgb 10.4 L Hct 32.4 MCV 82.1 MCH 26.4 D MCHC 32.1 RDW 16.8 H Plt Count 310 D MPV 7.2 L Absolute Neuts (auto) 6.0 Neutrophils % 77.2 Lymphocytes % 13.7 D Monocytes % 8.0 Eosinophils % 0.6 Basophils % 0.5 Nucleated RBC % 0 PT with INR INR PTT (Actin FS) VBG pH POC VBG pCO2 POC VBG pO2 VBG HCO3 VBG O2 Sat (Nancy) VBG Base Excess Sodium 137 Potassium 3.2 L Chloride 96 L Carbon Dioxide 33 H Anion Gap 8 BUN 18.0 Creatinine 0.8 Est GFR (CKD-EPI)AfAm 77.92 Est GFR (CKD-EPI)NonAf 67.23 POC Glucometer Random Glucose 82 Lactic Acid Calcium 9.0 Phosphorus Magnesium Total Bilirubin 0.9 AST 116 H ALT 32 Alkaline Phosphatase 281 H Troponin I B-Natriuretic Peptide 248.9 Total Protein 7.3 Albumin 2.6 L Urine Color Urine Appearance Urine pH Ur Specific [facility] Urine Protein Urine Glucose (UA) Urine Ketones Urine Blood Urine Nitrite Urine Bilirubin Urine Urobilinogen Ur Leukocyte Esterase Urine WBC (Auto) Urine RBC (Auto) Urine Casts (Auto) U Epithel Cells (Auto) Urine Bacteria (Auto) Fluid Source Fluid WBC Fluid RBC Fluid Neutrophils Fluid Lymphocytes Pleural Monocytes Pleural Eosinophils Pleural Basophils Pleural Plasma Cells Pleural Histocytes Pleural Macrophages Pleural Mesothelial Influenza A (Rapid) Negative Influenza B (Rapid) Negative 07/04/19 07/04/19 07/04/19 20:10 20:10 20:10 WBC RBC Hgb Hct MCV MCH MCHC RDW Plt Count MPV Absolute Neuts (auto) Neutrophils % Lymphocytes % Monocytes % Eosinophils % Basophils % Nucleated RBC % PT with INR INR PTT (Actin FS) 30.3 VBG pH POC VBG pCO2 POC VBG pO2 VBG HCO3 VBG O2 Sat (Nancy) VBG Base Excess Sodium Potassium Chloride Carbon Dioxide Anion Gap BUN Creatinine Est GFR (CKD-EPI)AfAm Est GFR (CKD-EPI)NonAf POC Glucometer Random Glucose Lactic Acid 2.3 H* Calcium Phosphorus Magnesium Total Bilirubin AST ALT Alkaline Phosphatase Troponin I < 0.02 B-Natriuretic Peptide Total Protein Albumin Urine Color Urine Appearance Urine pH Ur Specific [facility] Urine Protein Urine Glucose (UA) Urine Ketones Urine Blood Urine Nitrite Urine Bilirubin Urine Urobilinogen Ur Leukocyte Esterase Urine WBC (Auto) Urine RBC (Auto) Urine Casts (Auto) U Epithel Cells (Auto) Urine Bacteria (Auto) Fluid Source Fluid WBC Fluid RBC Fluid Neutrophils Fluid Lymphocytes Pleural Monocytes Pleural Eosinophils Pleural Basophils Pleural Plasma Cells Pleural Histocytes Pleural Macrophages Pleural Mesothelial Influenza A (Rapid) Influenza B (Rapid) 07/04/19 07/04/19 07/05/19 20:10 20:10 01:25 WBC RBC Hgb Hct MCV MCH MCHC RDW Plt Count MPV Absolute Neuts (auto) Neutrophils % Lymphocytes % Monocytes % Eosinophils % Basophils % Nucleated RBC % PT with INR 15.20 H INR 1.28 H PTT (Actin FS) VBG pH 7.42 H POC VBG pCO2 55.7 H POC VBG pO2 < 49 H VBG HCO3 35.8 H VBG O2 Sat (Nancy) 42.4 L VBG Base Excess 10.2 H Sodium Potassium Chloride Carbon Dioxide Anion Gap BUN Creatinine Est GFR (CKD-EPI)AfAm Est GFR (CKD-EPI)NonAf POC Glucometer Random Glucose Lactic Acid Calcium Phosphorus Magnesium Total Bilirubin AST ALT Alkaline Phosphatase Troponin I B-Natriuretic Peptide Total Protein Albumin Urine Color Yellow Urine Appearance Cloudy Urine pH 5.5 Ur Specific [place] [facility] 1.009 L Urine Protein Negative Urine Glucose (UA) Negative Urine Ketones Negative Urine Blood Negative Urine Nitrite Positive H Urine Bilirubin Negative Urine Urobilinogen 1.0 Ur Leukocyte Esterase Trace Urine WBC (Auto) 6 Urine RBC (Auto) 0 Urine Casts (Auto) 1 U Epithel Cells (Auto) 2.0 Urine Bacteria (Auto) 541.4 Fluid Source Fluid WBC Fluid RBC Fluid Neutrophils Fluid Lymphocytes Pleural Monocytes Pleural Eosinophils Pleural Basophils Pleural Plasma Cells Pleural Histocytes Pleural Macrophages Pleural Mesothelial Influenza A (Rapid) Influenza B (Rapid) 07/05/19 07/05/19 07/05/19 05:50 06:48 07:10 WBC RBC Hgb Hct MCV MCH MCHC RDW Plt Count MPV Absolute Neuts (auto) Neutrophils % Lymphocytes % Monocytes % Eosinophils % Basophils % Nucleated RBC % PT with INR INR PTT (Actin FS) VBG pH POC VBG pCO2 POC VBG pO2 VBG HCO3 VBG O2 Sat (Nancy) VBG Base Excess Sodium Potassium Chloride Carbon Dioxide Anion Gap BUN Creatinine Est GFR (CKD-EPI)AfAm Est GFR (CKD-EPI)NonAf POC Glucometer 70 79 Random Glucose Lactic Acid 1.8 Calcium Phosphorus Magnesium Total Bilirubin AST ALT Alkaline Phosphatase Troponin I B-Natriuretic Peptide Total Protein Albumin Urine Color Urine Appearance Urine pH Ur Specific [facility] Urine Protein Urine Glucose (UA) Urine Ketones Urine Blood Urine Nitrite Urine Bilirubin Urine Urobilinogen Ur Leukocyte Esterase Urine WBC (Auto) Urine RBC (Auto) Urine Casts (Auto) U Epithel Cells (Auto) Urine Bacteria (Auto) Fluid Source Fluid WBC Fluid RBC Fluid Neutrophils Fluid Lymphocytes Pleural Monocytes Pleural Eosinophils Pleural Basophils Pleural Plasma Cells Pleural Histocytes Pleural Macrophages Pleural Mesothelial Influenza A (Rapid) Influenza B (Rapid) 07/05/19 07/05/19 07/05/19 07:10 07:10 11:36 WBC 7.5 RBC 3.79 Hgb 10.1 L Hct 30.8 L MCV 81.2 MCH 26.7 MCHC 32.9 RDW 16.7 H Plt Count 305 MPV 6.9 L Absolute Neuts (auto) Neutrophils % Lymphocytes % Monocytes % Eosinophils % Basophils % Nucleated RBC % PT with INR INR PTT (Actin FS) VBG pH POC VBG pCO2 POC VBG pO2 VBG HCO3 VBG O2 Sat (Nancy) VBG Base Excess Sodium 139 Potassium 3.6 Chloride 96 L Carbon Dioxide 36 H Anion Gap 7 L BUN 12.4 Creatinine 0.6 Est GFR (CKD-EPI)AfAm 96.33 Est GFR (CKD-EPI)NonAf 83.11 POC Glucometer 71 Random Glucose 76 Lactic Acid Calcium 9.4 Phosphorus 2.7 Magnesium 1.3 L Total Bilirubin 0.8 AST 113 H ALT 29 Alkaline Phosphatase 272 H Troponin I B-Natriuretic Peptide Total Protein 6.8 Albumin 2.4 L Urine Color Urine Appearance Urine pH Ur Specific [facility] Urine Protein Urine Glucose (UA) Urine Ketones Urine Blood Urine Nitrite Urine Bilirubin Urine Urobilinogen Ur Leukocyte Esterase Urine WBC (Auto) Urine RBC (Auto) Urine Casts (Auto) U Epithel Cells (Auto) Urine Bacteria (Auto) Fluid Source Fluid WBC Fluid RBC Fluid Neutrophils Fluid Lymphocytes Pleural Monocytes Pleural Eosinophils Pleural Basophils Pleural Plasma Cells Pleural Histocytes Pleural Macrophages Pleural Mesothelial Influenza A (Rapid) Influenza B (Rapid) 07/05/19 13:56 WBC RBC Hgb Hct MCV MCH MCHC RDW Plt Count MPV Absolute Neuts (auto) Neutrophils % Lymphocytes % Monocytes % Eosinophils % Basophils % Nucleated RBC % PT with INR INR PTT (Actin FS) VBG pH POC VBG pCO2 POC VBG pO2 VBG HCO3 VBG O2 Sat (Nancy) VBG Base Excess Sodium Potassium Chloride Carbon Dioxide Anion Gap BUN Creatinine Est GFR (CKD-EPI)AfAm Est GFR (CKD-EPI)NonAf POC Glucometer Random Glucose Lactic Acid Calcium Phosphorus Magnesium Total Bilirubin AST ALT Alkaline Phosphatase Troponin I B-Natriuretic Peptide Total Protein Albumin Urine Color Urine Appearance Urine pH Ur Specific [facility] Urine Protein Urine Glucose (UA) Urine Ketones Urine Blood Urine Nitrite Urine Bilirubin Urine Urobilinogen Ur Leukocyte Esterase Urine WBC (Auto) Urine RBC (Auto) Urine Casts (Auto) U Epithel Cells (Auto) Urine Bacteria (Auto) Fluid Source Pleural Fluid WBC 387 Fluid RBC 1388 Fluid Neutrophils 0 Fluid Lymphocytes 43 Pleural Monocytes 2 Pleural Eosinophils 0 Pleural Basophils 0 Pleural Plasma Cells 0 Pleural Histocytes 0 Pleural Macrophages 54 Pleural Mesothelial 1 Influenza A (Rapid) Influenza B (Rapid) Active Medications Generic Name Dose Route Start Last Admin Trade Name Freq PRN Reason Stop Dose Admin Amlodipine Besylate 10 mg 07/06/19 10:00 Norvasc - PO DAILY [facility] Aspirin 81 mg 07/06/19 10:00 Asa - PO DAILY [facility] Atenolol 25 mg 07/06/19 10:00 Tenormin - PO DAILY [facility] Furosemide 40 mg 07/05/19 10:00 07/05/19 11:38 Lasix Injection - IVPUSH 40 mg DAILY [facility] Administration Azithromycin 500 mg in 250 mls @ 250 mls/hr 07/05/19 20:00 Zithromax 500mg Ivpb (Pre-Docked) IVPB DAILY [facility] Ceftriaxone Sodium 1 gm/ 50 mls @ 100 mls/hr 07/05/19 20:00 Dextrose IVPB DAILY@2000 [facility] Insulin Aspart 1 vial 07/05/19 07:00 07/05/19 11:50 Novolog Vial Sliding Scale - SQ Not Given ACHS [facility] Protocol Morphine Sulfate 2 mg 07/05/19 06:21 Morphine Sulfate IVPUSH Q4H PRN PAIN LEVEL 7 - 10 Vital Signs Temp 98.1 F 07/05/19 15:02 Pulse 79 07/05/19 15:02 Resp 18 07/05/19 15:02 BP 122/67 07/05/19 15:02 Pulse Ox 95 07/05/19 09:00 Intake & Output 07/04/19 07/05/19 07/05/19 23:59 11:59 23:59 Intake Total 100 Balance 100 Weight 82.1 kg 81.465 kg Intake: IVPB 100 Other: Voiding Method Toilet Diaper Bowel Movement No Height 5 ft 6 in 5 ft 6 in Body Mass Index (BMI) 29.2 29.0 Weight Measurement Method Standing Scale Weight Measurement Method Est/Stated by Patient ASSESSMENT/PLAN: 84 y.o. F PMH HTN, diastolic CHF, metastatic colon cancer s/p sigmoidectomy in 2011 ([facility]), DM type 2, multinodular goiter presenting with 1 week of increasing lower extremity and abdominal edema and shortness of breath. SOB likely 2/2 malignant effusions #SOB likely 2/2 malignant pleural effusion vs metastatic lung disease > CTA C/A/P(07/05/19): --neg for PE --enlarged hetero thyroid w/ mass w/ Left lobe, rec thyroid U/S --multiple lung nodules. Large Right-sided pleural effusion --mutliple liver lesions, perihepatic ascites --pathologic fx of Right 10th rib --divericulosis, partial sigmoidectomy -Pulm Consult(Dr Rueda): --agree w/ thoracentesis --cw antibiotics --echo -s/p thoracentesis, fu results -Heme/onc consulted: Dr. Frida Singh #possible CAP > influ neg -S/p 1 dose rocephin/ zithromax in ED -C/w abx: rocephin, axithromycin -F/u flu test, blood/urine/sputum cultures/ legionella & s. pneumo urine ag #Diastolic CHF >echo(07/05/19): LVEF 60-65%, grade I diastolic dysfunct, PASP >27mmHg, mild Aortic Sclerosis, small pericardial effusion(<1cm) -c/w lasix #Anasarca 2/2 likely severe protein malnutrition -40mg IV Lasix daily -Is & Os -Daily weights #DM -ISS -BGMs -Holding home oral agents #FEN -no fluids at this time -hypokalemic; repleting -low sodium/sugar diet #DVT PPX > BLE venous duplex: neg for DVT -lovenox #Dispo med surg Visit type - Emergency Visit Emergency Visit: No - New Patient This patient is new to me today: No - Critical Care Critical Care patient: No ATTENDING PHYSICIAN STATEMENT I saw and evaluated the patient. I reviewed the resident's note and discussed the case with the resident. I agree with the resident's findings and plan as documented. SUBJECTIVE: OBJECTIVE: ASSESSMENT AND PLAN:
[2019-07-05] MEDS ORDERED: CEFTRIAXONE 1 GM in DEXTROSE 5%-WATER - 50 ML IVPB ONE (20:00)
[2019-07-05] MEDS: CEFTRIAXONE 1 GM in DEXTROSE 5%-WATER - 50 ML IVPB SCH (20:30)
[2019-07-05] MEDS: AZITHROMYCIN IVPB 500 MG/250 ML BAG IVPB SCH (21:00)
[2019-07-05] MEDS ORDERED: DEXTROSE 5%-WATER - 50 ML IVPB ONE (21:42)
[2019-07-05] MEDS ORDERED: cefTRIAXone SODIUM 1 GM VIAL ONE (21:42)
--- NOTE | 2019-07-05 21:59 | CONSULT ---
Consult Consult Specialty:: Hematology and oncology Reason for Consultation:: Metastatis colon ca - History of Present Illness Chief Complaint: nausea, vomiting History of Present Illness: The patient is an 84 y.o. F PMH HTN, diastolic CHF, metastatic colon cancer s/p sigmoidectomy in 2011 ([facility]), DM type 2, multinodular goiter presenting with 1 week of increasing lower extremity and abdominal edema as well as shortness of breath. A CT of the chest showed new lung masses suspicious for metastasis. Patient is s/p thoracentesis today. On interview, the patient stats she is feeling better. She has seen Dr. Galicia in the past and has refused additional workup/treatment as well as second opinions. Today, the patient seems reluctant to be seen, but states that she will listen to what oncology has to say and "make her decision after" - Past Medical History Cardio/Vascular: Yes: HTN Gastrointestinal: Yes: Cancer ...: No - Alcohol/Substance Use Hx Alcohol Use: No - Smoking History Smoking history: Unknown if ever smoked Have you smoked in the past 12 months: No Home Medications - Allergies Allergies/Adverse Reactions: Allergies Allergy/AdvReac Type Severity Reaction Status Date / Time No Known Allergies Allergy Verified 07/04/19 18:41 - Home Medications Home Medications: Ambulatory Orders Amlodipine Besylate 10 mg PO DAILY 10/02/18 Aspirin 81 mg PO DAILY 10/02/18 Glimepiride 4 mg PO BID 10/02/18 Sitagliptin Phosphate [Januvia] 100 mg PO DAILY 10/02/18 Cefuroxime Axetil [Cefuroxime] 500 mg PO BID #4 tablet 10/08/18 Atenolol [Tenormin] 25 mg PO DAILY 07/05/19 Furosemide [Lasix] 40 mg PO DAILY 07/05/19 Physical Exam Vital Signs: Vital Signs Temperature 98.5 F 07/05/19 20:19 Pulse Rate 93 H 07/05/19 20:19 Respiratory Rate 18 07/05/19 20:19 Blood Pressure 120/63 07/05/19 20:19 O2 Sat by Pulse Oximetry (%) 95 07/05/19 09:00 Labs: CBC, BMP 07/05/19 07:10 07/05/19 07:10 Assessment/Plan The patient is an 84 yo f w/ PMH HTN, dCHF, DM II, Colon cancer (s/p sigmoidectomy) w/ metasteses to the liver (refused workup in the past) who comes into the ED c/o a 1 week h/o worsening LE edema & SOB. CT of the chest showed new metastases to the liver. #new metastases to the lungs -patient has refused treatment in the past -f/u cytology results of thoracentesis -patient may need additional biopsy -will discuss GOC/treatment options once pathology back -patient may be a candidate for palliative chemo
--- NOTE | 2019-07-05 23:35 | PN ---
Teaching Attending Note Name of Resident: John Hunt ATTENDING PHYSICIAN STATEMENT I saw and evaluated the patient. I reviewed the resident's note and discussed the case with the resident. I agree with the resident's findings and plan as documented. ASSESSMENT AND PLAN: 84 y/o patient with h/o colon cancer, liver metastasis, s/p SRS , had refused treatment in the past and only wanted conservative measures. Had refused 2nd opinions/ bipsy/palliative chemotherapy in the past Now comes in with presumed widely metastatic dssease -- lung nodules, liver mets , pleural effusion s/p thoracentesis -- awaiting cytology may need further bx based on cytology of pleural fluid may be a candidate for palliative chemotherapy with Xeloda/XELOX discussed with patient
[2019-07-06] MEDS: INSULIN SLIDING SCALE (NOVOLOG) 1 VIAL SQ SCH ×4 (06:34→22:01)
[2019-07-06 08:26] LABS: HEMATOCRIT 32.2 % (32.4-45.2); HEMOGLOBIN 10.5 GM/dL (10.7-15.3); MCH 26.7 pg (25.7-33.7); MCHC 32.5 g/dl (32.0-36.0); MEAN CELL VOLUME 82.2 fl (80-96); MEAN PLT VOLUME 7.2 fl (7.5-11.1); PLATELET COUNT 289 K/MM3 (134-434); RBC 3.91 M/mm3 (3.60-5.2); RDW 16.9 % (11.6-15.6); WHITE BLOOD COUNT 7.2 K/mm3 (4.0-10.0)
[2019-07-06] MEDS ORDERED: PT OWN MED DRAWER 7, Y5N ONE (08:44)
[2019-07-06 08:48] LABS: HYALINE CASTS 50 /lpf (0-8); URINE APPEARANCE CLOUDY; URINE BACTERIA 0.8 /hpf (NEGATIVE); URINE BILIRUBIN 1+ (NEGATIVE); URINE COLOR DK YELLOW; URINE GLUCOSE (UA) NEGATIVE (NEGATIVE); URINE KETONE TRACE (NEGATIVE); URINE LEUK ESTERASE NEGATIVE (NEGATIVE); URINE NITRITE POSITIVE (NEGATIVE); URINE PROTEIN 2+ (NEGATIVE); URINE RBC 1 /hpf (0-4); URINE WBC 5 /hpf (0-5)
[2019-07-06 09:06] LABS: BLOOD UREA NITROGEN 13.7 mg/dL (7-18); CALCIUM 9.3 mg/dL (8.5-10.1); CREATININE 0.8 mg/dL (0.55-1.3); MAGNESIUM 1.5 mg/dL (1.8-2.4); PHOSPHOROUS 3.4 mg/dL (2.5-4.9); POTASSIUM 4.2 mmol/L (3.5-5.1)
[2019-07-06] MEDS: AZITHROMYCIN IVPB 500 MG/250 ML BAG IVPB SCH (09:21)
[2019-07-06] MEDS: FUROSEMIDE 40 MG/4 ML INJECTABLE VIAL IVPUSH SCH (09:22)
[2019-07-06] MEDS: ASPIRIN 81 MG CHEWABLE TABLETS PO SCH (09:22)
[2019-07-06] MEDS: ENOXAPARIN NA (PORCINE) 40 MG/0.4 ML DISP.SYRIN SQ SCH (09:22)
[2019-07-06] MEDS: amLODIPine BESYLATE 10 MG TABLET (FP) PO SCH (09:22)
[2019-07-06] MEDS: ATENOLOL 25 MG TABLET (FP) PO SCH (09:22)
[2019-07-06] MEDS ORDERED: MAGNESIUM SULF 50% (8.12 MEQ/2 ML-1 GM VIAL) IVPB ONE (10:00)
--- NOTE | 2019-07-06 10:49 | PN ---
Progress Note (short form) - Note Progress Note: PULMONARY s/p right thoracentesis draining 850mL serous fluid. States breathing has improved since thoracentesis. Vital Signs Period Temp Pulse Resp BP Sys/King Pulse Ox Last 24 Hr 98.1 F-98.9 F 79-93 18-18 120-146/60-67 97-99 Gen: NAD at rest Heart: RRR Lung: decreased breath sounds right base Abd: soft, nontender Ext: no edema CBC, BMP 07/06/19 07:55 07/06/19 07:55 Active Medications Amlodipine Besylate (Norvasc -) 10 mg PO DAILY [facility] Last Admin: 07/06/19 09:22 Dose: 10 mg Aspirin (Asa -) 81 mg PO DAILY [facility] Last Admin: 07/06/19 09:22 Dose: 81 mg Atenolol (Tenormin -) 25 mg PO DAILY [facility] Last Admin: 07/06/19 09:22 Dose: 25 mg Enoxaparin Sodium (Lovenox -) 40 mg SQ DAILY [facility] Last Admin: 07/06/19 09:22 Dose: 40 mg Furosemide (Lasix -) 40 mg PO DAILY [facility] Azithromycin (Zithromax 500mg Ivpb (Pre-Docked)) 500 mg in 250 mls @ 250 mls/ hr IVPB DAILY [facility] Last Admin: 07/06/19 09:21 Dose: 250 mls/hr Ceftriaxone Sodium 1 gm/ (Dextrose) 50 mls @ 100 mls/hr IVPB DAILY@2000 [facility] Last Admin: 07/05/19 20:30 Dose: 100 mls/hr Insulin Aspart (Novolog Vial Sliding Scale -) 1 vial SQ [facility]; Protocol Last Admin: 07/06/19 06:34 Dose: Not Given Morphine Sulfate (Morphine Sulfate) 2 mg IVPUSH Q4H PRN PRN Reason: PAIN LEVEL 7 - 10 A/P Right Pleural Effusion - r/o Malignant Effusion Metastatic Colon Ca r/o Pneumonia UTI Lactic Acidosis LV Diastolic Dysfunction HTN DM Goiter - f/u pleural fluid studies, cytology - continue antibiotics - f/u cultures - monitor urine output, creatinine - O2 to keep SpO2 >90% - DVT prophylaxis
[2019-07-06 12:32] VITALS: BMI 27.7
--- NOTE | 2019-07-06 13:33 | EKG ---
Test Reason : Blood Pressure : / mmHG Vent. Rate : 072 BPM Atrial Rate : 072 BPM P-R Int : 128 ms QRS Dur : 084 ms QT Int : 394 ms P-R-T Axes : 079 -25 030 degrees QTc Int : 431 ms NORMAL SINUS RHYTHM CANNOT RULE OUT ANTERIOR INFARCT , AGE UNDETERMINED ABNORMAL ECG WHEN COMPARED WITH ECG OF 02-OCT-2018 10:23, NONSPECIFIC T WAVE ABNORMALITY NOW EVIDENT IN ANTERIOR LEADS Confirmed by MD Eliza, Chris ([id number]) on 07/06/2019 1:32:33 PM Referred By: Confirmed By:Chris Kay MD
--- NOTE | 2019-07-06 13:55 | CON.CARD ---
Consult Consult Specialty:: Cardiology Referred by:: Dr. King Reason for Consultation:: Cardiac evaluation - History of Present Illness Chief Complaint: SOB History of Present Illness: 84F widely metastatic colon ca presents w/ increasing SOB. S/p thoracentesis, now feeling improved. Echo shows diastolic dysfx and small pericardial effusion. She currently denies CP, dizziness, palps. No PND, orthopnea. CTA on admission negative for PE. ECG: NSR 74bpm, left axis. - History Source History Provided By: Patient, Medical Record - Past Medical History Cardio/Vascular: Yes: HTN Gastrointestinal: Yes: Cancer ...: No Endocrine: Yes: Diabetes Mellitus - Alcohol/Substance Use Hx Alcohol Use: No - Smoking History Smoking history: Unknown if ever smoked Have you smoked in the past 12 months: No - Social History History of Recent Travel: No Home Medications - Allergies Allergies/Adverse Reactions: Allergies Allergy/AdvReac Type Severity Reaction Status Date / Time No Known Allergies Allergy Verified 07/04/19 18:41 - Home Medications Home Medications: Ambulatory Orders Amlodipine Besylate 10 mg PO DAILY 10/02/18 Aspirin 81 mg PO DAILY 10/02/18 Glimepiride 4 mg PO BID 10/02/18 Sitagliptin Phosphate [Januvia] 100 mg PO DAILY 10/02/18 Atenolol [Tenormin] 25 mg PO DAILY 07/05/19 Furosemide [Lasix] 40 mg PO DAILY 07/05/19 Family Medical History Family History: Unremarkable (not pertinent to this presentation) Review of Systems Findings/Remarks: see HPI - Review of Systems Constitutional: reports: No Symptoms Cardiovascular: reports: Shortness of Breath Respiratory: reports: Exercise Intolerance, SOB on Exertion Breasts: denies: No Symptoms Reported, See HPI, Breast Implants, Discharge from Nipple, Lumps, Pain, Skin Changes, Other Musculoskeletal: denies: No Symptoms, Back Pain, Crepitus, Decreased ROM, Extremity Pain, Joint Pain, Joint Swelling, Muscle Pain, Muscle Cramps, Muscle Weakness, Other Integumentary: denies: No Symptoms, Blister, Bruising, Change in Color, Eczema, Erythema, Incision, Lesions, Lump, Pallor, Pruritis, Rash, Wound, Other Neurological: denies: No Symptoms, Change in LOC, Change in Speech, Confusion, Dizziness, Headache, Incoordination, Numbness, Parasthesia, Pre-Existing Deficit , Seizure, Syncope, Tremors, Unsteady Gait, Weakness, Other Endocrine: denies: No Symptoms, Excessive Sweating, Flushing, Increased Hunger, Increased Thirst, Intolerance to Cold, Intolerance to Heat, Unexplained Weight Gain, Unexplained Weight Loss, Other Hematology/Lymphatic: denies: No Symptoms, Easily Bruised, Excessive Bleeding, Swollen Glands, Other - Risk Factors Known Risk Factors: Yes: Diabetes Mellitus Vital Signs: Vital Signs Temperature 98.1 F 07/06/19 08:00 Pulse Rate 83 07/06/19 08:00 Respiratory Rate 18 07/06/19 08:00 Blood Pressure 146/66 07/06/19 08:00 O2 Sat by Pulse Oximetry (%) 97 07/06/19 09:00 Constitutional: Yes: No Distress, Calm Eyes: Yes: Conjunctiva Clear Respiratory: Yes: Other (decreased breath sounds right) Gastrointestinal: Yes: Soft, Other (distended) Cardiovascular: Yes: Regular Rate and Rhythm JVD: No Carotid Bruit: No Heart Sounds: Yes: S1, S2 (rrr) Edema: No Neurological: Yes: Alert, Oriented - Other Data Labs, Other Data: CBC, BMP 07/06/19 07:55 07/06/19 07:55 INR, PTT INR 1.28 (0.83-1.09) H 07/04/19 20:10 Echo: Report Reviewed Ejection Fraction %: LVEF > or = 40 % Imaging - Results Cat Scan: Report Reviewed EKG: Image Reviewed Assessment/Plan IMP: Metastatic colon CA Pleural effusion s/p thoracentesis LIMON DM Diastolic dysfx Chronic HTN Small pericardial effusion REC: 1. Heme/onc w/u, f/u pleural studies 2. DVT prophylaxis as you are doing. 3. BP well controlled, cont current Rx; Can continue PO Lasix. 3. Small pericardial effusion is not hemodymamically significant. Will follow. Please call if questions.
--- NOTE | 2019-07-06 18:05 | PN ---
Teaching Attending Note Name of Resident: Master Monk ATTENDING PHYSICIAN STATEMENT I saw and evaluated the patient. I reviewed the resident's note and discussed the case with the resident. I agree with the resident's findings and plan as documented. SUBJECTIVE: SOB improved s/p right thoracentesis (850mL serous fluid drained). No fever/chills. OBJECTIVE: Afebrile, Hemodynamically Stable. Sitting comfortably off O2. SpO2 97 % RA Last Vital Signs Temp Pulse Resp BP Pulse Ox 98.3 F 67 18 112/55 L 97 07/06/19 15:09 07/06/19 15:09 07/06/19 15:09 07/06/19 15:09 07/06/19 09:00 HEENT - Atraumatic, Normocephalic. Heart - S1, S2, RRR Lungs - decreased air entry R lower zone. Abdomen - soft, non-tender. Bowel Sounds normal. Extremities - no calf tenderness. Edema improved. Laboratory Results - last 24 hr 07/05/19 07/06/19 07/06/19 22:34 05:00 06:25 WBC RBC Hgb Hct MCV MCH MCHC RDW Plt Count MPV Sodium Potassium Chloride Carbon Dioxide Anion Gap BUN Creatinine Est GFR (CKD-EPI)AfAm Est GFR (CKD-EPI)NonAf POC Glucometer 125 127 Random Glucose Calcium Phosphorus Magnesium LD Total Urine Color Dk yellow Urine Appearance Cloudy Urine pH 5.0 Ur Specific [place] 1.036 H Urine Protein 2+ H Urine Glucose (UA) Negative Urine Ketones Trace H Urine Blood Negative Urine Nitrite Positive H Urine Bilirubin 1+ H Urine Urobilinogen 1.0 Ur Leukocyte Esterase Negative Urine WBC (Auto) 5 Urine RBC (Auto) 1 Urine Casts (Auto) 50 U Pathogenic Cast Auto None seen U Epithel Cells (Auto) 4.0 Urine Bacteria (Auto) 0.8 07/06/19 07/06/19 07/06/19 07:55 07:55 11:20 WBC 7.2 RBC 3.91 Hgb 10.5 L Hct 32.2 L MCV 82.2 MCH 26.7 MCHC 32.5 RDW 16.9 H Plt Count 289 MPV 7.2 L Sodium 140 Potassium 4.2 Chloride 97 L Carbon Dioxide 36 H Anion Gap 7 L BUN 13.7 Creatinine 0.8 Est GFR (CKD-EPI)AfAm 77.92 Est GFR (CKD-EPI)NonAf 67.23 POC Glucometer 188 Random Glucose 120 H Calcium 9.3 Phosphorus 3.4 Magnesium 1.5 L LD Total 512 H Urine Color Urine Appearance Urine pH Ur Specific [place] Urine Protein Urine Glucose (UA) Urine Ketones Urine Blood Urine Nitrite Urine Bilirubin Urine Urobilinogen Ur Leukocyte Esterase Urine WBC (Auto) Urine RBC (Auto) Urine Casts (Auto) U Pathogenic Cast Auto U Epithel Cells (Auto) Urine Bacteria (Auto) 07/06/19 16:26 WBC RBC Hgb Hct MCV MCH MCHC RDW Plt Count MPV Sodium Potassium Chloride Carbon Dioxide Anion Gap BUN Creatinine Est GFR (CKD-EPI)AfAm Est GFR (CKD-EPI)NonAf POC Glucometer 162 Random Glucose Calcium Phosphorus Magnesium LD Total Urine Color Urine Appearance Urine pH Ur Specific [place] Urine Protein Urine Glucose (UA) Urine Ketones Urine Blood Urine Nitrite Urine Bilirubin Urine Urobilinogen Ur Leukocyte Esterase Urine WBC (Auto) Urine RBC (Auto) Urine Casts (Auto) U Pathogenic Cast Auto U Epithel Cells (Auto) Urine Bacteria (Auto) Current Medications Generic Name Dose Route Start Last Admin Trade Name Freq PRN Reason Stop Dose Admin Amlodipine Besylate 10 mg 07/06/19 10:00 07/06/19 09:22 Norvasc - PO 10 mg DAILY ZACK Administration Aspirin 81 mg 07/06/19 10:00 07/06/19 09:22 Asa - PO 81 mg DAILY ZACK Administration Atenolol 25 mg 07/06/19 10:00 07/06/19 09:22 Tenormin - PO 25 mg DAILY ZACK Administration Enoxaparin Sodium 40 mg 07/06/19 10:00 07/06/19 09:22 Lovenox - SQ 40 mg DAILY ZACK Administration Furosemide 40 mg 07/07/19 10:00 Lasix - PO DAILY [facility] Azithromycin 500 mg in 250 mls @ 250 mls/hr 07/05/19 20:00 07/06/19 09:21 Zithromax 500mg Ivpb (Pre-Docked) IVPB 250 mls/hr DAILY ZACK Administration Ceftriaxone Sodium 1 gm/ 50 mls @ 100 mls/hr 07/05/19 20:00 07/05/19 20:30 Dextrose IVPB 100 mls/hr DAILY@2000 ZACK Administration Insulin Aspart 1 vial 07/05/19 07:00 07/06/19 16:36 Novolog Vial Sliding Scale - SQ Not Given ACHS [facility] Protocol Morphine Sulfate 2 mg 07/05/19 06:21 Morphine Sulfate IVPUSH Q4H PRN PAIN LEVEL 7 - 10 Home Medications Medication Instructions Recorded Amlodipine Besylate 10 mg PO DAILY 10/02/18 Aspirin 81 mg PO DAILY 10/02/18 Glimepiride 4 mg PO BID 10/02/18 Sitagliptin Phosphate [Januvia] 100 mg PO DAILY 10/02/18 Atenolol [Tenormin] 25 mg PO DAILY 07/05/19 Furosemide [Lasix] 40 mg PO DAILY 07/05/19 Azithromycin [Zithromax] 500 mg PO DAILY #2 tablet 07/06/19 Cephalexin [Keflex] 500 mg PO BID #4 capsule 07/06/19 ASSESSMENT AND PLAN: 84 year old female with history of HTN, chronic diastolic heart failure, metastatic colon cancer, sigmoid resection, DM 2, multinodular goiter who presented to the ED with increasing edema and shortness of breath. 1. Right pleural effusion, possibly paraneumonic vs malignant sec to metastatic colon ca (previously declined Rx) CT C/A/P - enlarged heterogeneous thyroid with large left lobe mass, multiple lung nodules, large right effusion, diffuse liver metastases, perihepatic ascites, pathologic right 10th rib fracture, diverticulosis, partial sigmoid resection s/p thoracentesis (850ml drained), cytology pending. Hematology/Oncology following - may be a candidate for palliative chemotherapy with Xeloda/XELOX if cytology positive as per Oncology Continue Ceftriaxone/Azithromycin. 2. Acute on Chronic diastolic heart failure Echo shows normal LV, LVEF 60-65%, grade I diastolic dysfunction, normal RV, mild TR, small pericardial effusion IV Lasix transitioned to PO. 3. DM 2 - continue Novolog sliding scale. Januvia/Glimepiride held. 4. HTN - Continue Atenolol, Norvasc, Lasix 5. thyroid Mass- for out-patient Ix by Oncology. DVT Px - Lovenox SQ
[2019-07-06] MEDS: CEFTRIAXONE 1 GM in DEXTROSE 5%-WATER - 50 ML IVPB SCH (20:01)
--- NOTE | 2019-07-06 20:33 | PN ---
Physical Exam: SUBJECTIVE: Patient seen and examined. PATO Torres improvement in SOB. Tolerated thoracentesis w/o issues. Drained 800cc OBJECTIVE: Vital Signs Period Temp Pulse Resp BP Sys/King Pulse Ox Last 24 Hr 98.1 F-98.9 F 67-85 18-18 112-146/55-66 97-99 GENERAL: The patient is awake, alert. HEAD: Normal with no signs of trauma. Moderate temporal wasting EYES: sclera anicteric, conjunctiva clear ENT: Ears normal, nares patent, moist mucous membranes. NECK: Trachea midline, full range of motion, supple. LUNGS: weak lung sounds bilaterally, no wheezes, no crackles, no accessory muscle use. Right posterior chest wall with clean gauze dressing w/ ss strikethrough closed with tegaderm HEART: Regular rate and rhythm, S1, S2 without murmur, rub or gallop. ABDOMEN: midline surgical scar. Soft, nontender, no guarding, no rebound, no masses, mildly ascitic abd with rectus diastasis. EXTREMITIES: 1+ pulses, warm, well-perfused, anasarca to bl UE and BLE. NEUROLOGICAL: Normal speech. PSYCH: Normal mood, normal affect. SKIN: Warm, dry, normal turgor, no rashes or lesions noted Laboratory Results - last 24 hr 07/05/19 07/06/19 07/06/19 22:34 05:00 06:25 WBC RBC Hgb Hct MCV MCH MCHC RDW Plt Count MPV Sodium Potassium Chloride Carbon Dioxide Anion Gap BUN Creatinine Est GFR (CKD-EPI)AfAm Est GFR (CKD-EPI)NonAf POC Glucometer 125 127 Random Glucose Calcium Phosphorus Magnesium LD Total Urine Color Dk yellow Urine Appearance Cloudy Urine pH 5.0 Ur Specific [place] 1.036 H Urine Protein 2+ H Urine Glucose (UA) Negative Urine Ketones Trace H Urine Blood Negative Urine Nitrite Positive H Urine Bilirubin 1+ H Urine Urobilinogen 1.0 Ur Leukocyte Esterase Negative Urine WBC (Auto) 5 Urine RBC (Auto) 1 Urine Casts (Auto) 50 U Pathogenic Cast Auto None seen U Epithel Cells (Auto) 4.0 Urine Bacteria (Auto) 0.8 07/06/19 07/06/19 07/06/19 07:55 07:55 11:20 WBC 7.2 RBC 3.91 Hgb 10.5 L Hct 32.2 L MCV 82.2 MCH 26.7 MCHC 32.5 RDW 16.9 H Plt Count 289 MPV 7.2 L Sodium 140 Potassium 4.2 Chloride 97 L Carbon Dioxide 36 H Anion Gap 7 L BUN 13.7 Creatinine 0.8 Est GFR (CKD-EPI)AfAm 77.92 Est GFR (CKD-EPI)NonAf 67.23 POC Glucometer 188 Random Glucose 120 H Calcium 9.3 Phosphorus 3.4 Magnesium 1.5 L LD Total 512 H Urine Color Urine Appearance Urine pH Ur Specific [place] Urine Protein Urine Glucose (UA) Urine Ketones Urine Blood Urine Nitrite Urine Bilirubin Urine Urobilinogen Ur Leukocyte Esterase Urine WBC (Auto) Urine RBC (Auto) Urine Casts (Auto) U Pathogenic Cast Auto U Epithel Cells (Auto) Urine Bacteria (Auto) 07/06/19 16:26 WBC RBC Hgb Hct MCV MCH MCHC RDW Plt Count MPV Sodium Potassium Chloride Carbon Dioxide Anion Gap BUN Creatinine Est GFR (CKD-EPI)AfAm Est GFR (CKD-EPI)NonAf POC Glucometer 162 Random Glucose Calcium Phosphorus Magnesium LD Total Urine Color Urine Appearance Urine pH Ur Specific [place] Urine Protein Urine Glucose (UA) Urine Ketones Urine Blood Urine Nitrite Urine Bilirubin Urine Urobilinogen Ur Leukocyte Esterase Urine WBC (Auto) Urine RBC (Auto) Urine Casts (Auto) U Pathogenic Cast Auto U Epithel Cells (Auto) Urine Bacteria (Auto) Active Medications Generic Name Dose Route Start Last Admin Trade Name Freq PRN Reason Stop Dose Admin Amlodipine Besylate 10 mg 07/06/19 10:00 07/06/19 09:22 Norvasc - PO 10 mg DAILY ZACK Administration Aspirin 81 mg 07/06/19 10:00 07/06/19 09:22 Asa - PO 81 mg DAILY ZACK Administration Atenolol 25 mg 07/06/19 10:00 07/06/19 09:22 Tenormin - PO 25 mg DAILY ZACK Administration Enoxaparin Sodium 40 mg 07/06/19 10:00 07/06/19 09:22 Lovenox - SQ 40 mg DAILY ZACK Administration Furosemide 40 mg 07/07/19 10:00 Lasix - PO DAILY [facility] Azithromycin 500 mg in 250 mls @ 250 mls/hr 07/05/19 20:00 07/06/19 09:21 Zithromax 500mg Ivpb (Pre-Docked) IVPB 250 mls/hr DAILY ZACK Administration Ceftriaxone Sodium 1 gm/ 50 mls @ 100 mls/hr 07/05/19 20:00 07/05/19 20:30 Dextrose IVPB 100 mls/hr DAILY@2000 ZACK Administration Insulin Aspart 1 vial 07/05/19 07:00 07/06/19 16:36 Novolog Vial Sliding Scale - SQ Not Given ACHS [facility] Protocol Morphine Sulfate 2 mg 07/05/19 06:21 Morphine Sulfate IVPUSH Q4H PRN PAIN LEVEL 7 - 10 ASSESSMENT/PLAN: 84 y.o. F PMH HTN, diastolic CHF, metastatic colon cancer s/p sigmoidectomy in 2011 ([facility]), DM type 2, multinodular goiter presenting with 1 week of increasing lower extremity and abdominal edema and shortness of breath. SOB likely 2/2 malignant effusions #SOB likely 2/2 malignant pleural effusion vs metastatic lung disease > CTA C/A/P(07/05/19): --neg for PE --enlarged hetero thyroid w/ mass w/ Left lobe, rec thyroid U/S --multiple lung nodules. Large Right-sided pleural effusion --mutliple liver lesions, perihepatic ascites --pathologic fx of Right 10th rib --divericulosis, partial sigmoidectomy -Pulm Consult(Dr Rueda): --agree w/ thoracentesis --cw antibiotics --echo -s/p thoracentesis, fu results -Heme/onc consulted: Dr. Frida Singh #possible CAP > influ --neg > neg legionella/pneu > BCX(07/04/19) --NGTD > UCX(07/04/19) --normal urogenital porsha -S/p 1 dose rocephin/ zithromax in ED -C/w abx: rocephin, axithromycin #chronic normocytic anemia > Hgb ~10, baseline #Diastolic CHF >echo(07/05/19): LVEF 60-65%, grade I diastolic dysfunct, PASP >27mmHg, mild Aortic Sclerosis, small pericardial effusion(<1cm) -cw home lasix 40mg QD #Anasarca 2/2 likely severe protein malnutrition -40mg IV Lasix daily -Is & Os -Daily weights #DM -ISS -BGMs -Holding home oral agents #FEN -no fluids at this time -hypokalemic; repleting -low sodium/sugar diet #DVT PPX > BLE venous duplex: neg for DVT -lovenox #Dispo med surg Visit type - Emergency Visit Emergency Visit: No - New Patient This patient is new to me today: No - Critical Care Critical Care patient: No ATTENDING PHYSICIAN STATEMENT I saw and evaluated the patient. I reviewed the resident's note and discussed the case with the resident. I agree with the resident's findings and plan as documented. SUBJECTIVE: OBJECTIVE: ASSESSMENT AND PLAN:
[2019-07-06] MEDS ORDERED: INSULIN (NOVOLOG) ASPART 100 UNITS/ML 10ML VIAL ONE (21:16)
[2019-07-06] MEDS ORDERED: cefTRIAXone SODIUM 1 GM VIAL ONE (21:17)
[2019-07-06] MEDS ORDERED: DEXTROSE 5%-WATER - 50 ML IVPB ONE (21:17)
[2019-07-07] MEDS: INSULIN SLIDING SCALE (NOVOLOG) 1 VIAL SQ SCH ×4 (06:34→21:53)
[2019-07-07] MEDS ORDERED: PT OWN MED DRAWER 7, Y5N ONE (09:48)
[2019-07-07] MEDS: amLODIPine BESYLATE 10 MG TABLET (FP) PO SCH (10:36)
[2019-07-07] MEDS: ATENOLOL 25 MG TABLET (FP) PO SCH (10:36)
[2019-07-07] MEDS: FUROSEMIDE 40 MG TABLET (FP) PO SCH (10:36)
[2019-07-07] MEDS: ASPIRIN 81 MG CHEWABLE TABLETS PO SCH (10:36)
[2019-07-07] MEDS: ENOXAPARIN NA (PORCINE) 40 MG/0.4 ML DISP.SYRIN SQ SCH (10:36)
[2019-07-07] MEDS: AZITHROMYCIN IVPB 500 MG/250 ML BAG IVPB SCH (10:37)
--- NOTE | 2019-07-07 12:49 | DS ---
Physical Exam: SUBJECTIVE: Patient seen and examined OBJECTIVE: Vital Signs Period Temp Pulse Resp BP Sys/King Pulse Ox Last 24 Hr 98.3 F-98.8 F 67-88 18-18 110-150/55-76 98-98 PHYSICAL EXAM GENERAL: The patient is awake, alert. HEAD: Normal with no signs of trauma. Moderate temporal wasting EYES: sclera anicteric, conjunctiva clear ENT: Ears normal, nares patent, moist mucous membranes. NECK: Trachea midline, full range of motion, supple. LUNGS: weak lung sounds bilaterally, no wheezes, no crackles, no accessory muscle use. Right posterior chest wall with clean gauze dressing w/ ss strikethrough closed with tegaderm HEART: Regular rate and rhythm, S1, S2 without murmur, rub or gallop. ABDOMEN: midline surgical scar. Soft, nontender, no guarding, no rebound, no masses, mildly ascitic abd with rectus diastasis. EXTREMITIES: 1+ pulses, warm, well-perfused, anasarca to bl UE and BLE. NEUROLOGICAL: Normal speech. PSYCH: Normal mood, normal affect. SKIN: Warm, dry, normal turgor, no rashes or lesions noted LABS Laboratory Results - last 24 hr 07/06/19 07/06/19 07/07/19 16:26 21:59 06:32 POC Glucometer 162 195 117 07/07/19 11:28 POC Glucometer 145 HOSPITAL COURSE: 84 y.o. F PMH HTN, diastolic CHF, metastatic colon cancer s/p sigmoidectomy in 2011 ([facility]), DM type 2, multinodular goiter presenting with 1 week of increasing lower extremity and abdominal edema and shortness of breath. SOB thought 2/2 malignant effusions. CTA C/A/P neg for PE, Left thyroid lobre w/ mass, multiple lung nodules w/ Right-sided pleural effusion, multiple liver lesions w/ perihepatic ascites, Right 10th rib fx, diverticulosis w/ partial sigmoidectomy. S/p IR thoracentesis w/ drainage of ~800cc. Exudative fluid. Was treated with ceftriax + azithro for a presumptive CAP. Echo(07/05/19) showed LVEF 60-65%, PASP >27mmHg, small pericardial effusion(< 1cm). Lasix diuresis during hospitalization, eventually transistioned to home dose. Stable for D/C home w/o O2 needs. PO abx to be continued for PNA. Date of Admission:07/04/19 Date of Discharge: 07/07/19 Minutes to complete discharge: 20 Discharge Summary Problems reviewed: Yes Reason For Visit: PNEUMONIA Current Active Problems Pneumonia (Acute) Condition: Stable - Instructions Diet, Activity, Other Instructions: Your visit You were admitted to the hospital because you had shortness of breath and leg swelling. CAT scan was done which revealed several spots on your lungs and liver , and some fluid on your lungs. You were started on IV antibiotics for a possible pneumonia, for which you will complete for 2 more days.You were also given IV Lasix to help with the swelling. You underwent a procedure to take out the fluid on your right lung and this was sent for further studies. It will take a few days for the results to come back. Please follow up with oncologist, Dr. Galicia to review the results and discuss further management. Medications Please take the following antibiotics as prescribed: 1. Azithromycin 500mg daily for 2 more days. 2. Keflex 500mg twice a day for 2 more days. Please continue your other home medications. Follow up -Please follow up with your primary care doctor (Dr. Crump) within 1 week. -Please follow up with the oncologist (Dr. Galicia) within 1 week to discuss your biopsy results. Additional info Please call 911 or go to the ED if with any worsening fevers, chills, headache, chest pain, shortness of breath, abdominal pain, diarrhea, or any new concerns noted. Referrals: Haider Palomo MD [Staff Physician] - Yordy Delarosa MD [Staff Physician] - Roxanne Crump MD [Primary Care Provider] - Frida Singh MD [Staff Physician] - Krish Garibay MD [Staff Physician] - Disposition: VNS/HOME HEALTH CARE - Home Medications Comprehensive Discharge Medication List: Ambulatory Orders Amlodipine Besylate 10 mg PO DAILY 10/02/18 Aspirin 81 mg PO DAILY 10/02/18 Glimepiride 4 mg PO BID 10/02/18 Sitagliptin Phosphate [Januvia] 100 mg PO DAILY 10/02/18 Atenolol [Tenormin] 25 mg PO DAILY 07/05/19 Furosemide [Lasix] 40 mg PO DAILY 07/05/19 Azithromycin [Zithromax] 500 mg PO DAILY #2 tablet 07/06/19 Cephalexin [Keflex] 500 mg PO BID #4 capsule 07/06/19 This patient is new to me today: No Emergency Visit: No Critical Care patient: No - Discharge Referral Referred to [facility] No ATTENDING PHYSICIAN STATEMENT I saw and evaluated the patient. I reviewed the resident's note and discussed the case with the resident. I agree with the resident's findings and plan as documented. SUBJECTIVE: OBJECTIVE: ASSESSMENT AND PLAN:
[2019-07-07 13:11] LABS: BODY FLUID ALBUMIN 2.3 g/dL (Not Estab.)
--- NOTE | 2019-07-07 14:49 | PN ---
Progress Note (short form) - Note Progress Note: s: no cp sob palps dizzy Current Medications Generic Name Dose Route Start Last Admin Trade Name Benito PRN Reason Stop Dose Admin Amlodipine Besylate 10 mg 07/06/19 10:00 07/07/19 10:36 Norvasc - PO 10 mg DAILY ZACK Administration Aspirin 81 mg 07/06/19 10:00 07/07/19 10:36 Asa - PO 81 mg DAILY ZACK Administration Atenolol 25 mg 07/06/19 10:00 07/07/19 10:36 Tenormin - PO 25 mg DAILY ZACK Administration Enoxaparin Sodium 40 mg 07/06/19 10:00 07/07/19 10:36 Lovenox - SQ 40 mg DAILY ZACK Administration Furosemide 40 mg 07/07/19 10:00 07/07/19 10:36 Lasix - PO 40 mg DAILY ZACK Administration Azithromycin 500 mg in 250 mls @ 250 mls/hr 07/05/19 20:00 07/07/19 10:37 Zithromax 500mg Ivpb (Pre-Docked) IVPB 250 mls/hr DAILY ZACK Administration Ceftriaxone Sodium 1 gm/ 50 mls @ 100 mls/hr 07/05/19 20:00 07/06/19 20:01 Dextrose IVPB 100 mls/hr DAILY@2000 ZACK Administration Insulin Aspart 1 vial 07/05/19 07:00 07/07/19 11:31 Novolog Vial Sliding Scale - SQ Not Given ACHS [facility] Protocol Morphine Sulfate 2 mg 07/05/19 06:21 Morphine Sulfate IVPUSH Q4H PRN PAIN LEVEL 7 - 10 Vital Signs Period Temp Pulse Resp BP Sys/King Pulse Ox Last 24 Hr 98.3 F-99.2 F 67-88 18-18 110-150/45-76 98-98 Constitutional: Yes: No Distress, Calm Eyes: Yes: Conjunctiva Clear Respiratory: Yes: Other (decreased breath sounds right) Gastrointestinal: Yes: Soft, Other (distended) Cardiovascular: Yes: Regular Rate and Rhythm JVD: No Carotid Bruit: No Heart Sounds: Yes: S1, S2 (rrr) Edema: No Neurological: Yes: Alert, Oriented - Other Data Labs, Other Data: CBC, BMP 07/06/19 07:55 07/06/19 07:55 Echo: Report Reviewed Ejection Fraction %: LVEF > or = 40 % Imaging - Results Cat Scan: Report Reviewed EKG: Image Reviewed Assessment/Plan IMP: Metastatic colon CA Pleural effusion s/p thoracentesis LIMON DM Diastolic dysfx Chronic HTN Small pericardial effusion REC: 1. Heme/onc w/u, f/u pleural studies 2. DVT prophylaxis as you are doing. 3. BP well controlled, cont current Rx; Can continue PO Lasix. 4. Small pericardial effusion is not hemodymamically significant. cardiac manzanares stable
--- NOTE | 2019-07-07 18:50 | PN ---
Teaching Attending Note Name of Resident: Master Monk ATTENDING PHYSICIAN STATEMENT I saw and evaluated the patient. I reviewed the resident's note and discussed the case with the resident. I agree with the resident's findings and plan as documented. SUBJECTIVE: Feeling well, less SOB s/p thoracentesis. No fever/chills. OBJECTIVE: Afebrile, hemodynamicaly Stable. Last Vital Signs Temp Pulse Resp BP Pulse Ox 99.2 F 72 18 121/45 L 98 07/07/19 14:37 07/07/19 14:37 07/07/19 14:37 07/07/19 14:37 07/07/19 08:55 Heart - S1, S2, RRR Lungs - decreased air entry R lower zone. Abdomen - soft, non-tender. Bowel Sounds normal. Extremities - no calf tenderness. Edema improved. Laboratory Tests 07/04/19 07/04/19 07/04/19 13:50 20:10 20:10 WBC 7.8 RBC 3.95 Hgb 10.4 L Hct 32.4 MCV 82.1 MCH 26.4 D MCHC 32.1 RDW 16.8 H Plt Count 310 D MPV 7.2 L Absolute Neuts (auto) 6.0 Neutrophils % 77.2 Lymphocytes % 13.7 D Monocytes % 8.0 Eosinophils % 0.6 Basophils % 0.5 Nucleated RBC % 0 PT with INR INR PTT (Actin FS) VBG pH POC VBG pCO2 POC VBG pO2 VBG HCO3 VBG O2 Sat (Nancy) VBG Base Excess Sodium 137 Potassium 3.2 L Chloride 96 L Carbon Dioxide 33 H Anion Gap 8 BUN 18.0 Creatinine 0.8 Est GFR (CKD-EPI)AfAm 77.92 Est GFR (CKD-EPI)NonAf 67.23 POC Glucometer Random Glucose 82 Lactic Acid Calcium 9.0 Phosphorus Magnesium Total Bilirubin 0.9 AST 116 H ALT 32 Alkaline Phosphatase 281 H LD Total Troponin I B-Natriuretic Peptide 248.9 Total Protein 7.3 Albumin 2.6 L Urine Color Urine Appearance Urine pH Ur Specific [place] Urine Protein Urine Glucose (UA) Urine Ketones Urine Blood Urine Nitrite Urine Bilirubin Urine Urobilinogen Ur Leukocyte Esterase Urine WBC (Auto) Urine RBC (Auto) Urine Casts (Auto) U Pathogenic Cast Auto U Epithel Cells (Auto) Urine Bacteria (Auto) Fluid Source Fluid WBC Fluid RBC Fluid Neutrophils Fluid Lymphocytes Fluid Glucose Fluid Total Protein Fluid Albumin Body Fluid LDH Source Fluid Amylase Fluid Triglycerides Pleural Monocytes Pleural Eosinophils Pleural Basophils Pleural Plasma Cells Pleural Histocytes Pleural Macrophages Pleural Mesothelial Influenza A (Rapid) Negative Influenza B (Rapid) Negative 07/04/19 07/04/19 07/04/19 20:10 20:10 20:10 WBC RBC Hgb Hct MCV MCH MCHC RDW Plt Count MPV Absolute Neuts (auto) Neutrophils % Lymphocytes % Monocytes % Eosinophils % Basophils % Nucleated RBC % PT with INR INR PTT (Actin FS) 30.3 VBG pH POC VBG pCO2 POC VBG pO2 VBG HCO3 VBG O2 Sat (Nancy) VBG Base Excess Sodium Potassium Chloride Carbon Dioxide Anion Gap BUN Creatinine Est GFR (CKD-EPI)AfAm Est GFR (CKD-EPI)NonAf POC Glucometer Random Glucose Lactic Acid 2.3 H* Calcium Phosphorus Magnesium Total Bilirubin AST ALT Alkaline Phosphatase LD Total Troponin I < 0.02 B-Natriuretic Peptide Total Protein Albumin Urine Color Urine Appearance Urine pH Ur Specific [place] Urine Protein Urine Glucose (UA) Urine Ketones Urine Blood Urine Nitrite Urine Bilirubin Urine Urobilinogen Ur Leukocyte Esterase Urine WBC (Auto) Urine RBC (Auto) Urine Casts (Auto) U Pathogenic Cast Auto U Epithel Cells (Auto) Urine Bacteria (Auto) Fluid Source Fluid WBC Fluid RBC Fluid Neutrophils Fluid Lymphocytes Fluid Glucose Fluid Total Protein Fluid Albumin Body Fluid LDH Source Fluid Amylase Fluid Triglycerides Pleural Monocytes Pleural Eosinophils Pleural Basophils Pleural Plasma Cells Pleural Histocytes Pleural Macrophages Pleural Mesothelial Influenza A (Rapid) Influenza B (Rapid) 07/04/19 07/04/19 07/05/19 20:10 20:10 01:25 WBC RBC Hgb Hct MCV MCH MCHC RDW Plt Count MPV Absolute Neuts (auto) Neutrophils % Lymphocytes % Monocytes % Eosinophils % Basophils % Nucleated RBC % PT with INR 15.20 H INR 1.28 H PTT (Actin FS) VBG pH 7.42 H POC VBG pCO2 55.7 H POC VBG pO2 < 49 H VBG HCO3 35.8 H VBG O2 Sat (Nancy) 42.4 L VBG Base Excess 10.2 H Sodium Potassium Chloride Carbon Dioxide Anion Gap BUN Creatinine Est GFR (CKD-EPI)AfAm Est GFR (CKD-EPI)NonAf POC Glucometer Random Glucose Lactic Acid Calcium Phosphorus Magnesium Total Bilirubin AST ALT Alkaline Phosphatase LD Total Troponin I B-Natriuretic Peptide Total Protein Albumin Urine Color Yellow Urine Appearance Cloudy Urine pH 5.5 Ur Specific [place] 1.009 L Urine Protein Negative Urine Glucose (UA) Negative Urine Ketones Negative Urine Blood Negative Urine Nitrite Positive H Urine Bilirubin Negative Urine Urobilinogen 1.0 Ur Leukocyte Esterase Trace Urine WBC (Auto) 6 Urine RBC (Auto) 0 Urine Casts (Auto) 1 U Pathogenic Cast Auto U Epithel Cells (Auto) 2.0 Urine Bacteria (Auto) 541.4 Fluid Source Fluid WBC Fluid RBC Fluid Neutrophils Fluid Lymphocytes Fluid Glucose Fluid Total Protein Fluid Albumin Body Fluid LDH Source Fluid Amylase Fluid Triglycerides Pleural Monocytes Pleural Eosinophils Pleural Basophils Pleural Plasma Cells Pleural Histocytes Pleural Macrophages Pleural Mesothelial Influenza A (Rapid) Influenza B (Rapid) 07/05/19 07/05/19 07/05/19 05:50 06:48 07:10 WBC RBC Hgb Hct MCV MCH MCHC RDW Plt Count MPV Absolute Neuts (auto) Neutrophils % Lymphocytes % Monocytes % Eosinophils % Basophils % Nucleated RBC % PT with INR INR PTT (Actin FS) VBG pH POC VBG pCO2 POC VBG pO2 VBG HCO3 VBG O2 Sat (Nancy) VBG Base Excess Sodium Potassium Chloride Carbon Dioxide Anion Gap BUN Creatinine Est GFR (CKD-EPI)AfAm Est GFR (CKD-EPI)NonAf POC Glucometer 70 79 Random Glucose Lactic Acid 1.8 Calcium Phosphorus Magnesium Total Bilirubin AST ALT Alkaline Phosphatase LD Total Troponin I B-Natriuretic Peptide Total Protein Albumin Urine Color Urine Appearance Urine pH Ur Specific [place] Urine Protein Urine Glucose (UA) Urine Ketones Urine Blood Urine Nitrite Urine Bilirubin Urine Urobilinogen Ur Leukocyte Esterase Urine WBC (Auto) Urine RBC (Auto) Urine Casts (Auto) U Pathogenic Cast Auto U Epithel Cells (Auto) Urine Bacteria (Auto) Fluid Source Fluid WBC Fluid RBC Fluid Neutrophils Fluid Lymphocytes Fluid Glucose Fluid Total Protein Fluid Albumin Body Fluid LDH Source Fluid Amylase Fluid Triglycerides Pleural Monocytes Pleural Eosinophils Pleural Basophils Pleural Plasma Cells Pleural Histocytes Pleural Macrophages Pleural Mesothelial Influenza A (Rapid) Influenza B (Rapid) 07/05/19 07/05/19 07/05/19 07:10 07:10 11:36 WBC 7.5 RBC 3.79 Hgb 10.1 L Hct 30.8 L MCV 81.2 MCH 26.7 MCHC 32.9 RDW 16.7 H Plt Count 305 MPV 6.9 L Absolute Neuts (auto) Neutrophils % Lymphocytes % Monocytes % Eosinophils % Basophils % Nucleated RBC % PT with INR INR PTT (Actin FS) VBG pH POC VBG pCO2 POC VBG pO2 VBG HCO3 VBG O2 Sat (Nancy) VBG Base Excess Sodium 139 Potassium 3.6 Chloride 96 L Carbon Dioxide 36 H Anion Gap 7 L BUN 12.4 Creatinine 0.6 Est GFR (CKD-EPI)AfAm 96.33 Est GFR (CKD-EPI)NonAf 83.11 POC Glucometer 71 Random Glucose 76 Lactic Acid Calcium 9.4 Phosphorus 2.7 Magnesium 1.3 L Total Bilirubin 0.8 AST 113 H ALT 29 Alkaline Phosphatase 272 H LD Total Troponin I B-Natriuretic Peptide Total Protein 6.8 Albumin 2.4 L Urine Color Urine Appearance Urine pH Ur Specific [place] Urine Protein Urine Glucose (UA) Urine Ketones Urine Blood Urine Nitrite Urine Bilirubin Urine Urobilinogen Ur Leukocyte Esterase Urine WBC (Auto) Urine RBC (Auto) Urine Casts (Auto) U Pathogenic Cast Auto U Epithel Cells (Auto) Urine Bacteria (Auto) Fluid Source Fluid WBC Fluid RBC Fluid Neutrophils Fluid Lymphocytes Fluid Glucose Fluid Total Protein Fluid Albumin Body Fluid LDH Source Fluid Amylase Fluid Triglycerides Pleural Monocytes Pleural Eosinophils Pleural Basophils Pleural Plasma Cells Pleural Histocytes Pleural Macrophages Pleural Mesothelial Influenza A (Rapid) Influenza B (Rapid) 07/05/19 07/05/19 07/05/19 13:56 13:56 17:17 WBC RBC Hgb Hct MCV MCH MCHC RDW Plt Count MPV Absolute Neuts (auto) Neutrophils % Lymphocytes % Monocytes % Eosinophils % Basophils % Nucleated RBC % PT with INR INR PTT (Actin FS) VBG pH POC VBG pCO2 POC VBG pO2 VBG HCO3 VBG O2 Sat (Nancy) VBG Base Excess Sodium Potassium Chloride Carbon Dioxide Anion Gap BUN Creatinine Est GFR (CKD-EPI)AfAm Est GFR (CKD-EPI)NonAf POC Glucometer 61 Random Glucose Lactic Acid Calcium Phosphorus Magnesium Total Bilirubin AST ALT Alkaline Phosphatase LD Total Troponin I B-Natriuretic Peptide Total Protein Albumin Urine Color Urine Appearance Urine pH Ur Specific [place] Urine Protein Urine Glucose (UA) Urine Ketones Urine Blood Urine Nitrite Urine Bilirubin Urine Urobilinogen Ur Leukocyte Esterase Urine WBC (Auto) Urine RBC (Auto) Urine Casts (Auto) U Pathogenic Cast Auto U Epithel Cells (Auto) Urine Bacteria (Auto) Fluid Source Pleural Fluid WBC 387 Fluid RBC 1388 Fluid Neutrophils 0 Fluid Lymphocytes 43 Fluid Glucose 83 Fluid Total Protein 4.8 Fluid Albumin 2.3 Body Fluid LDH Source 164 Fluid Amylase 34 Fluid Triglycerides 48 Pleural Monocytes 2 Pleural Eosinophils 0 Pleural Basophils 0 Pleural Plasma Cells 0 Pleural Histocytes 0 Pleural Macrophages 54 Pleural Mesothelial 1 Influenza A (Rapid) Influenza B (Rapid) 07/05/19 07/06/19 07/06/19 22:34 05:00 06:25 WBC RBC Hgb Hct MCV MCH MCHC RDW Plt Count MPV Absolute Neuts (auto) Neutrophils % Lymphocytes % Monocytes % Eosinophils % Basophils % Nucleated RBC % PT with INR INR PTT (Actin FS) VBG pH POC VBG pCO2 POC VBG pO2 VBG HCO3 VBG O2 Sat (Nancy) VBG Base Excess Sodium Potassium Chloride Carbon Dioxide Anion Gap BUN Creatinine Est GFR (CKD-EPI)AfAm Est GFR (CKD-EPI)NonAf POC Glucometer 125 127 Random Glucose Lactic Acid Calcium Phosphorus Magnesium Total Bilirubin AST ALT Alkaline Phosphatase LD Total Troponin I B-Natriuretic Peptide Total Protein Albumin Urine Color Dk yellow Urine Appearance Cloudy Urine pH 5.0 Ur Specific [place] 1.036 H Urine Protein 2+ H Urine Glucose (UA) Negative Urine Ketones Trace H Urine Blood Negative Urine Nitrite Positive H Urine Bilirubin 1+ H Urine Urobilinogen 1.0 Ur Leukocyte Esterase Negative Urine WBC (Auto) 5 Urine RBC (Auto) 1 Urine Casts (Auto) 50 U Pathogenic Cast Auto None seen U Epithel Cells (Auto) 4.0 Urine Bacteria (Auto) 0.8 Fluid Source Fluid WBC Fluid RBC Fluid Neutrophils Fluid Lymphocytes Fluid Glucose Fluid Total Protein Fluid Albumin Body Fluid LDH Source Fluid Amylase Fluid Triglycerides Pleural Monocytes Pleural Eosinophils Pleural Basophils Pleural Plasma Cells Pleural Histocytes Pleural Macrophages Pleural Mesothelial Influenza A (Rapid) Influenza B (Rapid) 07/06/19 07/06/19 07/06/19 07:55 07:55 11:20 WBC 7.2 RBC 3.91 Hgb 10.5 L Hct 32.2 L MCV 82.2 MCH 26.7 MCHC 32.5 RDW 16.9 H Plt Count 289 MPV 7.2 L Absolute Neuts (auto) Neutrophils % Lymphocytes % Monocytes % Eosinophils % Basophils % Nucleated RBC % PT with INR INR PTT (Actin FS) VBG pH POC VBG pCO2 POC VBG pO2 VBG HCO3 VBG O2 Sat (Nancy) VBG Base Excess Sodium 140 Potassium 4.2 Chloride 97 L Carbon Dioxide 36 H Anion Gap 7 L BUN 13.7 Creatinine 0.8 Est GFR (CKD-EPI)AfAm 77.92 Est GFR (CKD-EPI)NonAf 67.23 POC Glucometer 188 Random Glucose 120 H Lactic Acid Calcium 9.3 Phosphorus 3.4 Magnesium 1.5 L Total Bilirubin AST ALT Alkaline Phosphatase LD Total 512 H Troponin I B-Natriuretic Peptide Total Protein Albumin Urine Color Urine Appearance Urine pH Ur Specific [place] Urine Protein Urine Glucose (UA) Urine Ketones Urine Blood Urine Nitrite Urine Bilirubin Urine Urobilinogen Ur Leukocyte Esterase Urine WBC (Auto) Urine RBC (Auto) Urine Casts (Auto) U Pathogenic Cast Auto U Epithel Cells (Auto) Urine Bacteria (Auto) Fluid Source Fluid WBC Fluid RBC Fluid Neutrophils Fluid Lymphocytes Fluid Glucose Fluid Total Protein Fluid Albumin Body Fluid LDH Source Fluid Amylase Fluid Triglycerides Pleural Monocytes Pleural Eosinophils Pleural Basophils Pleural Plasma Cells Pleural Histocytes Pleural Macrophages Pleural Mesothelial Influenza A (Rapid) Influenza B (Rapid) 07/06/19 07/06/19 07/07/19 16:26 21:59 06:32 WBC RBC Hgb Hct MCV MCH MCHC RDW Plt Count MPV Absolute Neuts (auto) Neutrophils % Lymphocytes % Monocytes % Eosinophils % Basophils % Nucleated RBC % PT with INR INR PTT (Actin FS) VBG pH POC VBG pCO2 POC VBG pO2 VBG HCO3 VBG O2 Sat (Nancy) VBG Base Excess Sodium Potassium Chloride Carbon Dioxide Anion Gap BUN Creatinine Est GFR (CKD-EPI)AfAm Est GFR (CKD-EPI)NonAf POC Glucometer 162 195 117 Random Glucose Lactic Acid Calcium Phosphorus Magnesium Total Bilirubin AST ALT Alkaline Phosphatase LD Total Troponin I B-Natriuretic Peptide Total Protein Albumin Urine Color Urine Appearance Urine pH Ur Specific [place] Urine Protein Urine Glucose (UA) Urine Ketones Urine Blood Urine Nitrite Urine Bilirubin Urine Urobilinogen Ur Leukocyte Esterase Urine WBC (Auto) Urine RBC (Auto) Urine Casts (Auto) U Pathogenic Cast Auto U Epithel Cells (Auto) Urine Bacteria (Auto) Fluid Source Fluid WBC Fluid RBC Fluid Neutrophils Fluid Lymphocytes Fluid Glucose Fluid Total Protein Fluid Albumin Body Fluid LDH Source Fluid Amylase Fluid Triglycerides Pleural Monocytes Pleural Eosinophils Pleural Basophils Pleural Plasma Cells Pleural Histocytes Pleural Macrophages Pleural Mesothelial Influenza A (Rapid) Influenza B (Rapid) 07/07/19 07/07/19 11:28 16:45 WBC RBC Hgb Hct MCV MCH MCHC RDW Plt Count MPV Absolute Neuts (auto) Neutrophils % Lymphocytes % Monocytes % Eosinophils % Basophils % Nucleated RBC % PT with INR INR PTT (Actin FS) VBG pH POC VBG pCO2 POC VBG pO2 VBG HCO3 VBG O2 Sat (Nancy) VBG Base Excess Sodium Potassium Chloride Carbon Dioxide Anion Gap BUN Creatinine Est GFR (CKD-EPI)AfAm Est GFR (CKD-EPI)NonAf POC Glucometer 145 162 Random Glucose Lactic Acid Calcium Phosphorus Magnesium Total Bilirubin AST ALT Alkaline Phosphatase LD Total Troponin I B-Natriuretic Peptide Total Protein Albumin Urine Color Urine Appearance Urine pH Ur Specific [place] Urine Protein Urine Glucose (UA) Urine Ketones Urine Blood Urine Nitrite Urine Bilirubin Urine Urobilinogen Ur Leukocyte Esterase Urine WBC (Auto) Urine RBC (Auto) Urine Casts (Auto) U Pathogenic Cast Auto U Epithel Cells (Auto) Urine Bacteria (Auto) Fluid Source Fluid WBC Fluid RBC Fluid Neutrophils Fluid Lymphocytes Fluid Glucose Fluid Total Protein Fluid Albumin Body Fluid LDH Source Fluid Amylase Fluid Triglycerides Pleural Monocytes Pleural Eosinophils Pleural Basophils Pleural Plasma Cells Pleural Histocytes Pleural Macrophages Pleural Mesothelial Influenza A (Rapid) Influenza B (Rapid) Current Medications Generic Name Dose Route Start Last Admin Trade Name Freq PRN Reason Stop Dose Admin Amlodipine Besylate 10 mg 07/06/19 10:00 07/07/19 10:36 Norvasc - PO 10 mg DAILY ZACK Administration Aspirin 81 mg 07/06/19 10:00 07/07/19 10:36 Asa - PO 81 mg DAILY ZACK Administration Atenolol 25 mg 07/06/19 10:00 07/07/19 10:36 Tenormin - PO 25 mg DAILY ZACK Administration Enoxaparin Sodium 40 mg 07/06/19 10:00 07/07/19 10:36 Lovenox - SQ 40 mg DAILY ZACK Administration Furosemide 40 mg 07/07/19 10:00 07/07/19 10:36 Lasix - PO 40 mg DAILY ZACK Administration Azithromycin 500 mg in 250 mls @ 250 mls/hr 07/05/19 20:00 07/07/19 10:37 Zithromax 500mg Ivpb (Pre-Docked) IVPB 250 mls/hr DAILY ZACK Administration Ceftriaxone Sodium 1 gm/ 50 mls @ 100 mls/hr 07/05/19 20:00 07/06/19 20:01 Dextrose IVPB 100 mls/hr DAILY@2000 ZACK Administration Insulin Aspart 1 vial 07/05/19 07:00 07/07/19 16:49 Novolog Vial Sliding Scale - SQ Not Given ACHS [facility] Protocol Morphine Sulfate 2 mg 07/05/19 06:21 Morphine Sulfate IVPUSH Q4H PRN PAIN LEVEL 7 - 10 Discharge Medications Medication Instructions Recorded Amlodipine Besylate 10 mg PO DAILY 10/02/18 Aspirin 81 mg PO DAILY 10/02/18 Glimepiride 4 mg PO BID 10/02/18 Sitagliptin Phosphate [Januvia] 100 mg PO DAILY 10/02/18 Atenolol [Tenormin] 25 mg PO DAILY 07/05/19 Furosemide [Lasix] 40 mg PO DAILY 07/05/19 Azithromycin [Zithromax] 500 mg PO DAILY #2 tablet 07/06/19 Cephalexin [Keflex] 500 mg PO BID #4 capsule 07/06/19 ASSESSMENT AND PLAN: 84 year old female with history of HTN, chronic diastolic heart failure, metastatic colon cancer, sigmoid resection, DM 2, multinodular goiter who presented to the ED with increasing edema and shortness of breath. 1. Right pleural effusion, possibly paraneumonic vs malignant sec to metastatic colon ca (previously declined Rx) CT C/A/P - enlarged heterogeneous thyroid with large left lobe mass, multiple lung nodules, large right effusion, diffuse liver metastases, perihepatic ascites, pathologic right 10th rib fracture, diverticulosis, partial sigmoid resection s/p thoracentesis (850ml drained), cytology pending. Hematology/Oncology following - may be a candidate for palliative chemotherapy with Xeloda/XELOX if cytology positive as per Oncology. Cytology still pending. Afebrile, hemodynamically Stable. For 2 additional days of Abx for Pneumonia - Cephalexin/Azithro Oncology follow up. 2. Acute on Chronic Diastolic heart failure Echo shows normal LV, LVEF 60-65%, grade I diastolic dysfunction, normal RV, mild TR, small pericardial effusion Continue PO lasix on discharge with Cardio follow up. 3. DM 2 - Resume Januvia/Glimepiride on discharge. 4. HTN - Continue Atenolol, Norvasc, Lasix 5. Thyroid Mass - for out-patient Ix by Oncology. Medically stable for discharge with out-patient Oncology follow up for Rx planning. Cardio, Pulm, PCP follow up.
[2019-07-07] MEDS ORDERED: cefTRIAXone SODIUM 1 GM VIAL ONE (20:00)
[2019-07-07] MEDS ORDERED: DEXTROSE 5%-WATER - 50 ML IVPB ONE (20:01)
[2019-07-07] MEDS ORDERED: CEPHALEXIN MONOHYDRATE 500 MG CAPSULE (UD) PO ONE (20:31)
[2019-07-07] MEDS ORDERED: AZITHROMYCIN 250 MG TABLET PO ONE (20:31)
[2019-07-08] MEDS: INSULIN SLIDING SCALE (NOVOLOG) 1 VIAL SQ SCH (06:07)
[2019-07-08] MEDS: FUROSEMIDE 40 MG TABLET (FP) PO SCH (09:06)
[2019-07-08] MEDS: ASPIRIN 81 MG CHEWABLE TABLETS PO SCH (09:06)
[2019-07-08] MEDS: ENOXAPARIN NA (PORCINE) 40 MG/0.4 ML DISP.SYRIN SQ SCH (09:06)
[2019-07-08] MEDS: ATENOLOL 25 MG TABLET (FP) PO SCH (09:06)
[2019-07-08] MEDS: amLODIPine BESYLATE 10 MG TABLET (FP) PO SCH (09:06)
[2019-07-08] MEDS: AZITHROMYCIN IVPB 500 MG/250 ML BAG IVPB SCH (09:07)
[2019-07-08] MEDS: CEFTRIAXONE 1 GM in DEXTROSE 5%-WATER - 50 ML IVPB SCH (09:07)
[2019-07-08 09:47] VITALS: BP 133/66; PULSE 87; TEMP 98.6
--- NOTE | 2019-07-08 09:51 | PN ---
Progress Note (short form) - Note Progress Note: PULMONARY Denies shortness of breath, cough. Pleural fluid exudative by protein, cytology still pending. Vital Signs Period Temp Pulse Resp BP Sys/King Pulse Ox Last 24 Hr 98.0 F-99.2 F 72-87 18-18 110-133/45-66 96-98 Gen: NAD at rest Heart: RRR Lung: decreased breath sounds right base Abd: soft, nontender Ext: no edema CBC, BMP 07/06/19 07:55 07/06/19 07:55 Active Medications Amlodipine Besylate (Norvasc -) 10 mg PO DAILY [facility] Last Admin: 07/08/19 09:06 Dose: 10 mg Aspirin (Asa -) 81 mg PO DAILY [facility] Last Admin: 07/08/19 09:06 Dose: 81 mg Atenolol (Tenormin -) 25 mg PO DAILY [facility] Last Admin: 07/08/19 09:06 Dose: 25 mg Enoxaparin Sodium (Lovenox -) 40 mg SQ DAILY [facility] Last Admin: 07/08/19 09:06 Dose: Not Given Furosemide (Lasix -) 40 mg PO DAILY [facility] Last Admin: 07/08/19 09:06 Dose: 40 mg Azithromycin (Zithromax 500mg Ivpb (Pre-Docked)) 500 mg in 250 mls @ 250 mls/ hr IVPB DAILY [facility] Last Admin: 07/08/19 09:07 Dose: Not Given Insulin Aspart (Novolog Vial Sliding Scale -) 1 vial SQ ACHS [facility]; Protocol Last Admin: 07/08/19 06:07 Dose: Not Given A/P Right Pleural Effusion - r/o Malignant Effusion Metastatic Colon Ca r/o Pneumonia UTI Lactic Acidosis LV Diastolic Dysfunction HTN DM Goiter - f/u pleural fluid cytology - complete empiric antibiotics - monitor urine output, creatinine - O2 to keep SpO2 >90% - DVT prophylaxis
--- NOTE | 2019-07-08 17:28 | PATH ---
Cytology Non-Gynecological Report Patient Name: MICHAEL CORREA Med. Rec. #: [id number] /Age/Gender: 1935 (Age: 84) / F Account: [id number] Location: [facility] MED/SURG Taken: 07/05/2019 Received: 07/05/2019 Reported: 07/08/2019 Physicians: Trae Marlow M.D. Richard Wu, M.D. Specimen(s) Received A: PLEURAL FLUID B: PLEURAL FLUID Clinical History Pleural effusion, colon cancer s/p sigmoidectomy Final Diagnosis A & B. PLEURAL FLUID, THORACENTESIS: SATISFACTORY FOR EVALUATION NO MALIGNANT CELLS IDENTIFIED. MESOTHELIAL CELLS PRESENT. Comment: history of colon cancer s/p sigmoidectomy noted. Electronically Signed Roxanne Lozano M.D. Gross Description A. Approximately 50 cc of yellow cloudy fluid received fixed in 50% alcohol. One cytofunnel prepared and Pap stained. One cellblock prepared. B. Approximately 750 cc of yellow fluid received fresh. One cytofunnel prepared and Pap stained. One cellblock prepared.
--- NOTE | 2019-07-14 15:00 | PN ---
Progress Note (short form) - Note Progress Note: Discussed with patients PMD on 07/13/19 . PAtient does not want to pursue biopsies or any treatment options at this time She had an extensive discussion with PMD.
== END 2019-07-08 09:58 | disposition home health service (06) | DRG 180 ==
LOC: JER 18:00 → JERBED 22:18 → J7W 07-05 03:18
PROVIDERS: ADMIT Internal Medicine
PROC: 0W993ZX Drainage of Right Pleural Cavity, Percutaneous Approach, Diagnostic (ICD-10-PCS; principal; 2019-07-05)
DX: C78.00 Secondary malignant neoplasm of unspecified lung (principal); E43 Unspecified severe protein-calorie malnutrition; I50.33 Acute on chronic diastolic (congestive) heart failure; E87.2 Acidosis; C78.7 Secondary malignant neoplasm of liver and intrahepatic bile duct; C18.9 Malignant neoplasm of colon, unspecified; I31.3 Pericardial effusion (noninflammatory); I50.32 Chronic diastolic (congestive) heart failure; R18.8 Other ascites; J98.11 Atelectasis; N39.0 Urinary tract infection, site not specified; Z68.1 Body mass index [BMI] 19.9 or less, adult; J91.0 Malignant pleural effusion; E11.9 Type 2 diabetes mellitus without complications; R50.9 Fever, unspecified; E87.6 Hypokalemia; R60.1 Generalized edema; E04.2 Nontoxic multinodular goiter; I11.0 Hypertensive heart disease with heart failure; D72.829 Elevated white blood cell count, unspecified
CPT/HCPCS: 36415; 71045-TC-FY; 71275-TC; 74174-TC; 76942; 80048; 80053; 81003; 82042; 82150; 82465; 82803; 82945; 82962; 83605; 83615; 83735; 83880; 83986; 84100; 84157; 84478; 84484; 85025; 85027; 85610; 85730; 87040; 87086; 87102; 87210; 87804; 87899; 93005; 93010; 93306-TC; 93970-TC; 97116-GP; 97161-GP; 99285-25; J0131

== ENCOUNTER 2019-07-21 02:31 | Inpatient (IN) | payer OTHER ==
--- NOTE | 2019-07-21 03:10 | PDOC ---
History of Present Illness - General Chief Complaint: Weakness Stated Complaint: WEAKNESS Time Seen by Provider: 07/21/19 03:09 - History of Present Illness Initial Comments: 07/21/19 05:04 84 year old woman with a history of HTN, metastatic colon CA, DM, prior thyroid nodule, who presents with shortness breath and weakness for 2 days. The patient also notes that she has been having some swelling in the legs over the past week. She denies any fever, chest pain, nausea, vomiting, abdominal pain, diarrhea, constipation or dysuria. She has no other complaints. ROS GENERAL/CONSTITUTIONAL: No fever or chills. No weakness. CARDIOVASCULAR: No chest pain, + shortness of breath RESPIRATORY: No cough, wheezing, or hemoptysis. GASTROINTESTINAL: No nausea, vomiting, diarrhea or constipation. GENITOURINARY: No dysuria, frequency, or change in urination. MUSCULOSKELETAL: No joint or muscle swelling or pain. No neck or back pain. SKIN: No rash NEUROLOGIC: No headache, vertigo, loss of consciousness, or change in strength/ sensation. PE GENERAL: Awake, alert, and fully oriented, in no acute distress HEAD: No signs of trauma, normocephalic, atraumatic EYES: EOMI, sclera anicteric, conjunctiva clear ENT: oropharynx clear without exudates. Moist mucosa NECK: Normal ROM, supple LUNGS: No distress, speaks full sentences, + decreased breath sounds in R lung base HEART: Regular rate and rhythm, normal S1 and S2, no murmurs, rubs or gallops, peripheral pulses normal and equal bilaterally. ABDOMEN: Soft, nontender No guarding, no rebound. No masses EXTREMITIES : + 2+ pitting edema in feet, ankles and lower calfs NEUROLOGICAL: Cranial nerves II through XII grossly intact. Normal speech, no focal sensorimotor deficits SKIN: Warm, Dry, normal turgor, no rashes or lesions noted MDM DDX including but not limited to: CHF exacerbation r/o acs r/o PE r/o infectious ED Course: labs with slight hyponatremia elevated alk phos and t-bili ekg: nsr w/ sinus arrythmia at 84bpm pending CT chest and abomden/pelvis Spoke with Radiologist who reports L upper lobe PE, liver mets, ascites, mild cystitis Patient signed out day team Adrianne Lay, PGY2 Emergency Medicine Past History - Past Medical History Allergies/Adverse Reactions: Allergies Allergy/AdvReac Type Severity Reaction Status Date / Time No Known Allergies Allergy Verified 07/04/19 18:41 Home Medications: Ambulatory Orders Amlodipine Besylate 10 mg PO DAILY 10/02/18 Aspirin 81 mg PO DAILY 10/02/18 Sitagliptin Phosphate [Januvia] 100 mg PO DAILY 10/02/18 Atenolol [Tenormin] 25 mg PO DAILY 07/05/19 Docusate Sodium [Colace -] 100 mg PO DAILY capsule 07/28/19 Enoxaparin [Lovenox -] 80 mg SQ BID disp.syrin 07/28/19 Ferrous Sulfate [Feosol] 325 mg PO DAILY ud 07/28/19 Insulin Sliding Scale [Novolog Vial Sliding Scale -] 1 vial SQ TIDAC units Silver Sulfadiazine 1% Top Cr [Silvadene -] 1 applic TP DAILY jar 07/28/19 Anemia: No Asthma: No Cancer: Yes (RECTAL MASS;LIVER METS;GASTRIC NEOPLASM) Cardiac Disorders: No CVA: No COPD: No CHF: No Dementia: No Diabetes: Yes GI Disorders: Yes (metastatic colon ca) Disorders: Yes (COLON POLYPS) HTN: Yes Hypercholesterolemia: No Liver Disease: No Seizures: No Thyroid Disease: Yes (THYROID NODULE) - Surgical History Abdominal Surgery: Yes (COLON ANASTOMOSIS) Cardiac Surgery: No Cholecystectomy: Yes Lung Surgery: No Neurologic Surgery: No Orthopedic Surgery: No - Psycho Social/Smoking Cessation Hx Smoking History: Unknown if ever smoked Have you smoked in the past 12 months: No Hx Alcohol Use: No Drug/Substance Use Hx: No Substance Use Type: None Hx Substance Use Treatment: No *Physical Exam - Vital Signs Last Vital Signs Temp Pulse Resp BP Pulse Ox 98.4 F 85 18 125/52 L 100 07/21/19 02:55 07/21/19 02:55 07/21/19 02:55 07/21/19 02:55 07/21/19 02:55 ED Treatment Course - LABORATORY CBC & Chemistry Diagram: 07/27/19 09:05 07/28/19 08:14 Discharge - Discharge Information Problems reviewed: Yes Clinical Impression/Diagnosis: Pulmonary embolism Condition: Stable [facility]position: [facility] - Follow up/Referral - Patient Discharge Instructions - Post Discharge Activity
--- NOTE | 2019-07-21 03:11 | PDOC ---
Attending Attestation - Resident Resident Name: Adrianne Lay - ED Attending Attestation I have performed the following: I have examined & evaluated the patient, The case was reviewed & discussed with the resident, I agree w/resident's findings & plan - HPI HPI: 07/21/19 04:09 see resident hpi - Physicial Exam PE: 07/21/19 04:09 agree with resident exam - Medical Decision Making 07/21/19 04:10 84-year-old female with shortness of breath and leg swelling Plan for chest x-ray, EKG, labs We will admit to medical service pending results for further evaluation
[2019-07-21 04:34] LABS: BASO % 0.2 % (0-2.0); EOS % 0.5 % (0-4.5); HEMATOCRIT 33.8 % (32.4-45.2); HEMOGLOBIN 11.1 GM/dL (10.7-15.3); LYMPH % 9.7 % (8-40); MCHC 32.9 g/dl (32.0-36.0); MEAN CELL VOLUME 82.1 fl (80-96); MEAN PLT VOLUME 7.6 fl (7.5-11.1); NEUT % 81.6 % (42.8-82.8); PLATELET COUNT 336 K/MM3 (134-434); RBC 4.11 M/mm3 (3.60-5.2); RDW 18.5 % (11.6-15.6); WHITE BLOOD COUNT 9.8 K/mm3 (4.0-10.0)
[2019-07-21 04:54] LABS: INR 1.32 (0.83-1.09); PROTHROMBIN TIME (PATIENT) 15.6 SEC (9.7-13.0)
[2019-07-21 05:10] LABS: ALBUMIN 2.6 g/dl (3.4-5.0); ALK PHOS 522 U/L (45-117); ANION GAP 8 MMOL/L (8-16); BILIRUBIN,TOTAL 1.5 mg/dL (0.2-1); BLOOD UREA NITROGEN 36.8 mg/dL (7-18); CALCIUM 9.3 mg/dL (8.5-10.1); CHLORIDE 93 mmol/L (98-107); CO2 32 mmol/L (21-32); CREATININE 1.2 mg/dL (0.55-1.3); GLUCOSE,RANDOM 148 mg/dL (74-106); N-TERMINAL BNP 361.1 pg/ml (5-450); SGOT/AST 201 U/L (15-37); SGPT/ALT 55 U/L (13-61); SODIUM 132 mmol/L (136-145); TOT PROT 7.3 g/dl (6.4-8.2)
[2019-07-21 05:19] LABS: POTASSIUM 4.7 mmol/L (3.5-5.1)
[2019-07-21] MEDS ORDERED: HEPARIN NA (PORCINE) 5,000 UNITS/ML 1ML VIAL IVPUSH PRN ×3 (07:14)
[2019-07-21] MEDS ORDERED: HEPARIN - 25,000 UNIT in SODIUM CHLORIDE 495 ML IV SCH (07:15)
[2019-07-21] MEDS ORDERED: HEPARIN INFUSION - 25,000 UNITS/500 ML INFUS.BAG IVPB ONE (07:47)
--- NOTE | 2019-07-21 08:06 | HP ---
CHIEF COMPLAINT: Shortness of breath PCP: Dr. Crump HISTORY OF PRESENT ILLNESS: 84 yo F with h/o HTN, diastolic CHF, metastatic colon cancer s/p sigmoidectomy in 2011 ([facility]), DM type 2, multinodular goiter presenting with about 3 days of worsening shortness of breath. Pt was recently here noted to have worsening malignancy and malignant effusion discharged s/p thoracentesis back home. Pt at home opted for conservative oncological measures and does not wish to have even palliative chemotherapy at this point. Pt came to the hospital because she felt worsening shortness of breath and felt like she was gasping for breath. She reports as soon as she received oxygen she felt better. Upon arrival pt was noted to be tachycardic and CTA revealed a ADONIS pulmonary embolism without any hemodynamic compromise. At time of my exam pt feels comfortable and does not have any shortness of breath requiring 2-3L O2NC. Denies any fever/chills, cough, hemoptysis, chest pain, palpitations, abdominal pain, diarrhea/constipation, prior clotting or bleeding disorders, no history of bleeds, no hemorrhagic CVAs. Recent Travel: None PAST MEDICAL HISTORY: as per HPI PAST SURGICAL HISTORY: sigmoidectomy in 2011, cholecystectomy, 2x c-sxns Social History: lives alone. has good family support system. Smoking: denies Alcohol: denies Drugs: denies Allergies No Known Allergies Allergy (Verified 07/04/19 18:41) HOME MEDICATIONS: Home Medications Medication Instructions Recorded Amlodipine Besylate 10 mg PO DAILY 10/02/18 Aspirin 81 mg PO DAILY 10/02/18 Glimepiride 4 mg PO BID 10/02/18 Sitagliptin Phosphate [Januvia] 100 mg PO DAILY 10/02/18 Atenolol [Tenormin] 25 mg PO DAILY 07/05/19 Furosemide [Lasix] 40 mg PO DAILY 07/05/19 Azithromycin [Zithromax] 500 mg PO DAILY #2 tablet 07/06/19 Cephalexin [Keflex] 500 mg PO BID #4 capsule 07/06/19 REVIEW OF SYSTEMS per HPI PHYSICAL EXAMINATION Vital Signs - 24 hr 07/21/19 07/21/19 02:55 03:20 Temperature 98.4 F Pulse Rate 85 Respiratory 18 Rate Blood Pressure 125/52 L O2 Sat by Pulse 100 99 Oximetry (%) GENERAL: Awake, alert, and fully oriented, in no acute distress, frail appearing HEENT: NC/AT< XANDER, sclera anicteric, MMM NECK: No JVD LUNGS: Diminished breath sounds R base > L base. Good inspiratory effort No wheezes, and no crackles. No accessory muscle use. 2LNC HEART: RRR, normal S1 and S2 without murmur ABDOMEN: Soft, nontender, not distended, normoactive bowel sounds, no guarding, hepatomegaly appreciated on palpation EXTREMITIES: 2+ pulses, warm, well-perfused. No calf tenderness. No peripheral edema. PSYCHIATRIC: Cooperative. Good eye contact. Appropriate mood and affect. SKIN: Warm, dry, no rashes or lesions noted Laboratory Results - last 24 hr 07/21/19 07/21/19 07/21/19 04:20 04:20 04:20 WBC 9.8 RBC 4.11 Hgb 11.1 Hct 33.8 MCV 82.1 MCH 27.0 MCHC 32.9 RDW 18.5 H Plt Count 336 MPV 7.6 Absolute Neuts (auto) 8.0 Neutrophils % 81.6 Lymphocytes % 9.7 D Monocytes % 8.0 Eosinophils % 0.5 Basophils % 0.2 Nucleated RBC % 0 PT with INR INR PTT (Actin FS) 28.2 Sodium 132 L Potassium 4.7 Chloride 93 L Carbon Dioxide 32 Anion Gap 8 BUN 36.8 H Creatinine 1.2 Est GFR (CKD-EPI)AfAm 47.72 Est GFR (CKD-EPI)NonAf 41.18 Random Glucose 148 H Calcium 9.3 Total Bilirubin 1.5 H AST 201 H ALT 55 Alkaline Phosphatase 522 H Troponin I < 0.02 B-Natriuretic Peptide 361.1 Total Protein 7.3 Albumin 2.6 L 07/21/19 07/21/19 04:20 04:20 WBC RBC Hgb Hct MCV MCH MCHC RDW Plt Count MPV Absolute Neuts (auto) Neutrophils % Lymphocytes % Monocytes % Eosinophils % Basophils % Nucleated RBC % PT with INR 15.60 H INR 1.32 H PTT (Actin FS) Sodium Potassium Chloride Carbon Dioxide Anion Gap BUN Creatinine Est GFR (CKD-EPI)AfAm Est GFR (CKD-EPI)NonAf Random Glucose Calcium Total Bilirubin AST ALT Alkaline Phosphatase Troponin I B-Natriuretic Peptide Cancelled Total Protein Albumin Active Medications Amlodipine Besylate (Norvasc -) 10 mg PO DAILY [facility] Last Admin: 07/21/19 10:20 Dose: 10 mg Atenolol (Tenormin -) 25 mg PO DAILY [facility] Last Admin: 07/21/19 10:20 Dose: 25 mg Enoxaparin Sodium (Lovenox -) 80 mg SQ BID [facility] Furosemide (Lasix -) 40 mg PO DAILY [facility] Last Admin: 07/21/19 10:20 Dose: 40 mg ASSESSMENT/PLAN: Acute provoked pulmonary embolus Moderate R Malignant effusion, reoccurring Stage IV Colon Carcinoma HFpEF Type 2 DM History HTN --Pt with pulmonary embolus likely provoked due to cancer --Heparin gtt currently; would switch to Lovenox 1mg/kg BID SQ when able --Continue oxygen NC; maintain SpO2 >90% --Pt has opted to not pursue any treatment whether curative or palliative in terms of Stage IV Ca and chemotherapy --Pulmonology consulted for recurrent malignant effusion --Possibility of Pleur-X device for palliation and discussed this with patient and granddaughter at bedside --Palliative consult placed --Norvasc 10mg qdaily restarted --Atenolol 25mg qdaily restarted --Lasix 40mg qdaily PO restarted FEN: Fluids: PO only Electrolyte abnormalities: None appreciated Nutrition: Regular diet PPX: DVT - See above GI - Not indicated Dispo: Admit M/S due to hemodynamic stability Case discussed with Dr. Rebecca Kelly, Do - Im PGy-3 Visit type - Emergency Visit Emergency Visit: Yes ED Registration Date: 07/21/19 Care time: The patient presented to the Emergency Department on the above date and was hospitalized for further evaluation of their emergent condition. - New Patient This patient is new to me today: Yes Date on this admission: 07/21/19 - Critical Care Critical Care patient: No ATTENDING PHYSICIAN STATEMENT I saw and evaluated the patient. I reviewed the resident's note and discussed the case with the resident. I agree with the resident's findings and plan as documented. SUBJECTIVE: OBJECTIVE: ASSESSMENT AND PLAN:
--- NOTE | 2019-07-21 08:20 | PDOC ---
*Physical Exam - Vital Signs Last Vital Signs Temp Pulse Resp BP Pulse Ox 98.4 F 85 18 125/52 L 99 07/21/19 02:55 07/21/19 02:55 07/21/19 02:55 07/21/19 02:55 07/21/19 03:20 - Physical Exam Comments: 07/21/19 08:20 awake alert lungs clear bilat. heart rrrn omg abd soft nt . ext wwp awake alert oriented x 3. ED Treatment Course - LABORATORY CBC & Chemistry Diagram: 07/21/19 04:20 07/21/19 04:20 - ADDITIONAL ORDERS Additional order review: Laboratory Results 07/21/19 07/21/19 07/21/19 04:20 04:20 04:20 PT with INR 15.60 H INR 1.32 H PTT (Actin FS) Sodium 132 L Potassium 4.7 Chloride 93 L Carbon Dioxide 32 Anion Gap 8 BUN 36.8 H Creatinine 1.2 Est GFR (CKD-EPI)AfAm 47.72 Est GFR (CKD-EPI)NonAf 41.18 Random Glucose 148 H Calcium 9.3 Total Bilirubin 1.5 H AST 201 H ALT 55 Alkaline Phosphatase 522 H Troponin I < 0.02 B-Natriuretic Peptide Cancelled 361.1 Total Protein 7.3 Albumin 2.6 L 07/21/19 04:20 PT with INR INR PTT (Actin FS) 28.2 Sodium Potassium Chloride Carbon Dioxide Anion Gap BUN Creatinine Est GFR (CKD-EPI)AfAm Est GFR (CKD-EPI)NonAf Random Glucose Calcium Total Bilirubin AST ALT Alkaline Phosphatase Troponin I B-Natriuretic Peptide Total Protein Albumin 07/21/19 04:20 RBC 4.11 MCV 82.1 MCHC 32.9 RDW 18.5 H MPV 7.6 Neutrophils % 81.6 Lymphocytes % 9.7 D Monocytes % 8.0 Eosinophils % 0.5 Basophils % 0.2 Medical Decision Making - Medical Decision Making 07/21/19 08:21 84 yo F h/o metastatic : CA status post resection 12 years ago here today complaining of shortness of breath. Patient was signed out to me by the night team assumed care of the patient at [address] results CT results show a left upper lobe small PE. Discussion with the patient she has had no history of prior PE she was admitted to the hospital 2 weeks ago with fluid on her lungs states that she does our oxygen at home does feel better today with oxygen on denies any fevers chills states that she has metastatic colon CA to the liver was offered surgery but is unwilling to go under any surgery and her current state [facility] Heparin was ordered by the overnight team discussed with the patient she has no history of recent bleeding no history of intracranial bleed and no recent surgeries Mycolog sent patient was admitted to Dr. Cox until signout was given to the on-call resident Dr. Ling Discharge - Discharge Information Problems reviewed: Yes Clinical Impression/Diagnosis: Pulmonary embolism - Admission Yes - Follow up/Referral Referrals: Roxanne Crump MD [Primary Care Provider] - - Patient Discharge Instructions - Post Discharge Activity
[2019-07-21 08:56] LABS: URINE APPEARANCE CLOUDY; URINE BILIRUBIN NEGATIVE (NEGATIVE); URINE COLOR YELLOW; URINE GLUCOSE (UA) NEGATIVE (NEGATIVE); URINE KETONE NEGATIVE (NEGATIVE); URINE LEUK ESTERASE NEGATIVE (NEGATIVE); URINE NITRITE NEGATIVE (NEGATIVE); URINE PROTEIN NEGATIVE (NEGATIVE)
[2019-07-21] MEDS: FUROSEMIDE 40 MG TABLET (FP) PO SCH (10:20)
[2019-07-21] MEDS: ATENOLOL 25 MG TABLET (FP) PO SCH (10:20)
[2019-07-21] MEDS: amLODIPine BESYLATE 10 MG TABLET (FP) PO SCH (10:20)
--- NOTE | 2019-07-21 10:38 | EKG ---
Test Reason : Blood Pressure : / mmHG Vent. Rate : 084 BPM Atrial Rate : 084 BPM P-R Int : 120 ms QRS Dur : 084 ms QT Int : 384 ms P-R-T Axes : -18 -25 010 degrees QTc Int : 453 ms NORMAL SINUS RHYTHM WITH SINUS ARRHYTHMIA POSSIBLE ANTERIOR INFARCT , AGE UNDETERMINED ABNORMAL ECG WHEN COMPARED WITH ECG OF 04-JUL-2019 21:22, NO SIGNIFICANT CHANGE WAS FOUND Confirmed by SOFIA HORTON, COLT ([id number]) on 07/21/2019 10:38:25 AM Referred By: Confirmed By:COLT BLACK MD
--- NOTE | 2019-07-21 13:25 | CON.PULM ---
Consult Consult Specialty:: PULMONARY Referred by:: Dr Fernandez Reason for Consultation:: pleural effusion - History of Present Illness Chief Complaint: shortness of breath History of Present Illness: 84yo female with h/o HTN, DM, LV diastolic dysfunction, metastatic colon cancer , recently hospitalized with right pleural effusion s/p thoracentesis who was admitted with worsening shortness of breath x 2 days. CTA chest done showing an acute pulmonary emoblism as well as re-accumulation of the right pleural effusion. She was placed on oxygen and anticoagulation with improvement in her symptoms. No fevers, chills. No cough or wheezing. - History Source History Provided By: Patient, Medical Record Limitations to Obtaining History: No Limitations - Past Medical History Cardio/Vascular: Yes: HTN Gastrointestinal: Yes: Cancer Endocrine: Yes: Diabetes Mellitus - Alcohol/Substance Use Hx Alcohol Use: No - Smoking History Smoking history: Unknown if ever smoked Have you smoked in the past 12 months: No - Social History History of Recent Travel: No Home Medications - Allergies Allergies/Adverse Reactions: Allergies Allergy/AdvReac Type Severity Reaction Status Date / Time No Known Allergies Allergy Verified 07/04/19 18:41 - Home Medications Home Medications: Ambulatory Orders Amlodipine Besylate 10 mg PO DAILY 10/02/18 Aspirin 81 mg PO DAILY 10/02/18 Glimepiride 4 mg PO BID 10/02/18 Sitagliptin Phosphate [Januvia] 100 mg PO DAILY 10/02/18 Atenolol [Tenormin] 25 mg PO DAILY 07/05/19 Furosemide [Lasix] 40 mg PO DAILY 07/05/19 Azithromycin [Zithromax] 500 mg PO DAILY #2 tablet 07/06/19 Cephalexin [Keflex] 500 mg PO BID #4 capsule 07/06/19 Review of Systems - Review of Systems Constitutional: reports: Weakness. denies: Chills, Fever Eyes: denies: Recent Change in Vision HENT: denies: Nasal Congestion, Throat Pain Neck: denies: Stiffness, Tenderness Cardiovascular: reports: Edema, Shortness of Breath. denies: Chest Pain, Palpitations Respiratory: reports: SOB on Exertion. denies: Cough, Hemoptysis, Wheezing Gastrointestinal: denies: Abdominal Pain, Nausea, Vomiting Genitourinary: denies: Dysuria, Hematuria Neurological: denies: Dizziness, Headache Physical Exam Vital Sings: Vital Signs Temperature 98.3 F 07/21/19 07:50 Pulse Rate 85 07/21/19 10:09 Respiratory Rate 20 07/21/19 10:09 Blood Pressure 122/53 L 07/21/19 10:09 O2 Sat by Pulse Oximetry (%) 99 07/21/19 10:09 Constitutional: Yes: Calm Eyes: Yes: Conjunctiva Clear, EOM Intact HENT: Yes: Atraumatic, Normocephalic Neck: Yes: Supple, Trachea Midline Cardiovascular: Yes: Regular Rate and Rhythm Respiratory: Yes: Diminished (decreased breath sounds right 1/2 up) ...Clubbing: No Gastrointestinal: Yes: Normal Bowel Sounds, Soft. No: Tenderness Edema: Yes Labs: CBC, BMP 07/21/19 04:20 07/21/19 04:20 Imaging - Results Cat Scan: Image Reviewed (mod-large right pleural effusion, extensive liver masses, left sided PE) Problem List - Problems (1) Pulmonary embolism Code(s): I26.99 - OTHER PULMONARY EMBOLISM WITHOUT ACUTE COR PULMONALE Assessment/Plan Acute Pulmonary Embolism Mod-Large Right Pleural Effusion Atelectasis Metastatic Colon Ca LV Diastolic Dysfunction HTN DM - continue anticoagulation, would change to LMWH - O2 to keep spO2 >90% - LE dopplers - discussed pleur-x placement with patient as the effusion re-accumulated quickly from last month, likely malignant effusion vs reactive effusion from liver disease - she would like to hold off at this time as she feels improved with oxygen - when ready for discharge, check ambulatory SpO2 on room air to assess for home O2 Thank you for this consult Jose Rueda MD
--- NOTE | 2019-07-21 14:00 | PN ---
Teaching Attending Note Name of Resident: Micah Kelly ATTENDING PHYSICIAN STATEMENT I saw and evaluated the patient. I reviewed the resident's note and discussed the case with the resident. I agree with the resident's findings and plan as documented. SUBJECTIVE: This is an 84 year old woman with a history of HTN, chronic diastolic heart failure, metastatic colon cancer, sigmoid resection, type 2 DM, multinodular goiter who comes to the ED complaining of worsening shortness of breath for 3 days. She was recently found to have a malignant pleural effusion and underwent thoracentesis. OBJECTIVE: Vital Signs Period Temp Pulse Resp BP Sys/King Pulse Ox Last 24 Hr 97.9 F-98.4 F 78-86 18-20 122-132/52-60 98-100 HEART: S1S2, RRR LUNGS: Diminished BS at right base ABDOMEN: Soft, non-tender, non-distended, normal BS EXTREMITIES: No edema Laboratory Tests 07/21/19 07/21/19 07/21/19 04:20 04:20 04:20 WBC 9.8 RBC 4.11 Hgb 11.1 Hct 33.8 MCV 82.1 MCH 27.0 MCHC 32.9 RDW 18.5 H Plt Count 336 MPV 7.6 Absolute Neuts (auto) 8.0 Neutrophils % 81.6 Lymphocytes % 9.7 D Monocytes % 8.0 Eosinophils % 0.5 Basophils % 0.2 Nucleated RBC % 0 PT with INR INR PTT (Actin FS) 28.2 Sodium 132 L Potassium 4.7 Chloride 93 L Carbon Dioxide 32 Anion Gap 8 BUN 36.8 H Creatinine 1.2 Est GFR (CKD-EPI)AfAm 47.72 Est GFR (CKD-EPI)NonAf 41.18 Random Glucose 148 H Calcium 9.3 Total Bilirubin 1.5 H AST 201 H ALT 55 Alkaline Phosphatase 522 H Troponin I < 0.02 B-Natriuretic Peptide 361.1 Total Protein 7.3 Albumin 2.6 L Urine Color Urine Appearance Urine pH Ur Specific [employer] Urine Protein Urine Glucose (UA) Urine Ketones Urine Blood Urine Nitrite Urine Bilirubin Urine Urobilinogen Ur Leukocyte Esterase 07/21/19 07/21/19 07/21/19 04:20 04:20 08:30 WBC RBC Hgb Hct MCV MCH MCHC RDW Plt Count MPV Absolute Neuts (auto) Neutrophils % Lymphocytes % Monocytes % Eosinophils % Basophils % Nucleated RBC % PT with INR 15.60 H INR 1.32 H PTT (Actin FS) Sodium Potassium Chloride Carbon Dioxide Anion Gap BUN Creatinine Est GFR (CKD-EPI)AfAm Est GFR (CKD-EPI)NonAf Random Glucose Calcium Total Bilirubin AST ALT Alkaline Phosphatase Troponin I B-Natriuretic Peptide Cancelled Total Protein Albumin Urine Color Yellow Urine Appearance Cloudy Urine pH 5.0 Ur Specific [employer] 1.032 Urine Protein Negative Urine Glucose (UA) Negative Urine Ketones Negative Urine Blood Negative Urine Nitrite Negative Urine Bilirubin Negative Urine Urobilinogen 1.0 Ur Leukocyte Esterase Negative Home Medications Medication Instructions Recorded Amlodipine Besylate 10 mg PO DAILY 10/02/18 Aspirin 81 mg PO DAILY 10/02/18 Glimepiride 4 mg PO BID 10/02/18 Sitagliptin Phosphate [Januvia] 100 mg PO DAILY 10/02/18 Atenolol [Tenormin] 25 mg PO DAILY 07/05/19 Furosemide [Lasix] 40 mg PO DAILY 07/05/19 Azithromycin [Zithromax] 500 mg PO DAILY #2 tablet 07/06/19 Cephalexin [Keflex] 500 mg PO BID #4 capsule 07/06/19 ASSESSMENT AND PLAN: This is an 84 year old woman with a history of HTN, chronic diastolic heart failure, metastatic colon cancer, sigmoid resection, type 2 DM, multinodular goiter who presented to the ED with worsening shortness of breath. 1. Acute pulmonary embolus - Started on heparin IV drip in ED - Oxygen as needed - Pulmonary consult 2. Malignant right pleural effusion - Consider drainage catheter 3. Stage IV colon cancer 4. Chronic diastolic heart failure - Stable - Continue Lasix 5. HTN - Continue Norvasc, atenolol 6. Type 2 DM - Hold Januvia, glimepiride - Fingersticks with Novolog sliding scale
[2019-07-21] MEDS: ENOXAPARIN NA (PORCINE) 80 MG/0.8 ML DISP.SYRIN SQ SCH (21:41)
--- NOTE | 2019-07-22 08:54 | PN ---
Teaching Attending Note Name of Resident: Micah Kelly ATTENDING PHYSICIAN STATEMENT I saw and evaluated the patient. I reviewed the resident's note and discussed the case with the resident. I agree with the resident's findings and plan as documented. SUBJECTIVE: Elderly female sick looking complained of shortness of breath denies any chest pain. OBJECTIVE: Vital Signs Temperature 98.4 F 07/22/19 06:00 Pulse Rate 81 07/22/19 06:00 Respiratory Rate 20 07/22/19 06:00 Blood Pressure 103/46 L 07/22/19 06:00 O2 Sat by Pulse Oximetry (%) 97 07/21/19 21:00 General: Elderly woman, comfortable, not in distress HEENT; mucous membranes moist, n+ anemia, no jaundice, PERRLA, no nystagmus Neck: No JVD, supple, no bruit, thyroid palpably normal, normal carotid pulsations. Chest: Nontender, decreased air entry on right side CVS: S1-S2 regular Abdomen: Nondistended, soft, bowel sounds present. 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 , no gross motor sensory deficit CBC, BMP 07/21/19 04:20 07/21/19 04:20 Active Medications Amlodipine Besylate (Norvasc -) 10 mg PO DAILY [facility] Last Admin: 07/21/19 10:20 Dose: 10 mg Atenolol (Tenormin -) 25 mg PO DAILY [facility] Last Admin: 07/21/19 10:20 Dose: 25 mg Enoxaparin Sodium (Lovenox -) 80 mg SQ BID [facility] Last Admin: 07/21/19 21:41 Dose: 80 mg Furosemide (Lasix -) 40 mg PO DAILY [facility] Last Admin: 07/21/19 10:20 Dose: 40 mg ASSESSMENT AND PLAN:84yo female with h/o HTN, DM, LV diastolic dysfunction, metastatic colon cancer, recently hospitalized with right pleural effusion s/p thoracentesis who was admitted with worsening shortness of breath x 2 days. CTA chest done showing an acute pulmonary emoblism as well as re-accumulation of the right pleural effusion. 1. Pulmonary embolism: On anticoagulation with Lovenox, follow-up pulmonary recommendations. 2. Right-sided pleural effusion. Agree for pleurocentesis follow-up with IR. 3. Hypertension well controlled continue amlodipine and atenolol. 4. Hypoxic respiratory failure. Due to pleural effusion and pulmonary embolism continue current management O2 inhalation evaluate for home O2 therapy. 5. Diastolic heart failure continue beta-blockers and Lasix. 6. Colon cancer with mets and malignant pleural effusion: Refusing treatment consider palliative care consult. DVT prophylaxis: On therapeutic anticoagulation. Prognosis is guarded. Problem List - Problems (1) Pulmonary embolism Code(s): I26.99 - OTHER PULMONARY EMBOLISM WITHOUT ACUTE COR PULMONALE (2) Carcinoma, lung Code(s): C34.90 - MALIGNANT NEOPLASM OF UNSP PART OF UNSP BRONCHUS OR LUNG (3) HTN (hypertension) Code(s): I10 - ESSENTIAL (PRIMARY) HYPERTENSION (4) Pleural effusion Code(s): J90 - PLEURAL EFFUSION, NOT ELSEWHERE CLASSIFIED (5) Diastolic heart failure Code(s): I50.30 - UNSPECIFIED DIASTOLIC (CONGESTIVE) HEART FAILURE
[2019-07-22 09:17] LABS: HEMATOCRIT 32.3 % (32.4-45.2); HEMOGLOBIN 10.4 GM/dL (10.7-15.3); MCH 26.9 pg (25.7-33.7); MCHC 32.3 g/dl (32.0-36.0); MEAN CELL VOLUME 83.3 fl (80-96); MEAN PLT VOLUME 7.5 fl (7.5-11.1); PLATELET COUNT 278 K/MM3 (134-434); RBC 3.88 M/mm3 (3.60-5.2); RDW 19.1 % (11.6-15.6); WHITE BLOOD COUNT 8.1 K/mm3 (4.0-10.0)
[2019-07-22 09:55] LABS: BILIRUBIN,TOTAL 1.3 mg/dL (0.2-1); BLOOD UREA NITROGEN 26.4 mg/dL (7-18); CALCIUM 9.4 mg/dL (8.5-10.1); CREATININE 0.9 mg/dL (0.55-1.3)
--- NOTE | 2019-07-22 10:16 | PN ---
Progress Note (short form) - Note Progress Note: PULMONARY States breathing is better. Now agreeable to pleur-x placement. Vital Signs Period Temp Pulse Resp BP Sys/King Pulse Ox Last 24 Hr 97.8 F-98.4 F 76-81 18-20 103-134/46-58 97 Gen: NAD at rest Heart: RRR Lung: decreased breath sounds at the bases Abd: soft, nontender Ext: no edema CBC, BMP 07/22/19 08:35 07/22/19 08:35 Active Medications Amlodipine Besylate (Norvasc -) 10 mg PO DAILY [facility] Last Admin: 07/21/19 10:20 Dose: 10 mg Atenolol (Tenormin -) 25 mg PO DAILY [facility] Last Admin: 07/21/19 10:20 Dose: 25 mg Enoxaparin Sodium (Lovenox -) 80 mg SQ BID [facility] Last Admin: 07/21/19 21:41 Dose: 80 mg Furosemide (Lasix -) 40 mg PO DAILY [facility] Last Admin: 07/21/19 10:20 Dose: 40 mg A/P Acute Pulmonary Embolism Mod-Large Right Pleural Effusion Atelectasis Metastatic Colon Ca LV Diastolic Dysfunction HTN DM - pleur-x placement - continue anticoagulation with lovenox - O2 to keep spO2 >90% - when ready for discharge, check ambulatory SpO2 on room air to assess for home O2 Problem List - Problems (1) Pulmonary embolism Code(s): I26.99 - OTHER PULMONARY EMBOLISM WITHOUT ACUTE COR PULMONALE
[2019-07-22] MEDS: FUROSEMIDE 40 MG TABLET (FP) PO SCH ×2 (11:04→13:24)
[2019-07-22] MEDS: ENOXAPARIN NA (PORCINE) 80 MG/0.8 ML DISP.SYRIN SQ SCH (11:04)
[2019-07-22] MEDS: amLODIPine BESYLATE 10 MG TABLET (FP) PO SCH ×2 (11:04→13:32)
[2019-07-22] MEDS: ATENOLOL 25 MG TABLET (FP) PO SCH (11:04)
[2019-07-22 13:23] VITALS: BMI 28.0
--- NOTE | 2019-07-22 14:41 | PN ---
Progress Note (short form) - Note Progress Note: HPI: Pt today with improved breathing, however was noted last night to be weak with ambulation from restroom. Pt previously refused Pleur-X, however pt was re- explained and is now amenable. Vital Signs Temperature 98.4 F 07/22/19 06:00 Pulse Rate 81 07/22/19 06:00 Respiratory Rate 20 07/22/19 06:00 Blood Pressure 103/46 L 07/22/19 06:00 O2 Sat by Pulse Oximetry (%) 97 07/21/19 21:00 PE: GENERAL: Awake, alert, and fully oriented, in no acute distress, frail appearing HEENT: NC/AT, XANDER, sclera anicteric, MMM LUNGS: Diminished breath sounds R base > L base. No wheezes, and no crackles. No accessory muscle use. 2LNC HEART: RRR, normal S1 and S2 without murmur ABDOMEN: Soft, nontender, not distended, normoactive bowel sounds, no guarding, hepatomegaly appreciated on palpation EXTREMITIES: 2+ pulses, warm. No calf tenderness. No peripheral edema. SKIN: Warm, dry, no rashes or lesions noted CBC, BMP 07/22/19 08:35 07/22/19 08:35 Active Medications Amlodipine Besylate (Norvasc -) 10 mg PO DAILY [facility] Last Admin: 07/22/19 13:32 Dose: Not Given Atenolol (Tenormin -) 25 mg PO DAILY [facility] Last Admin: 07/22/19 11:04 Dose: 25 mg Enoxaparin Sodium (Lovenox -) 80 mg SQ BID [facility] Last Admin: 07/22/19 11:04 Dose: 80 mg Furosemide (Lasix -) 40 mg PO DAILY [facility] Last Admin: 07/22/19 13:24 Dose: 40 mg Assessment and Plan: Acute provoked pulmonary embolus Moderate R Malignant effusion, reoccurring Stage IV Colon Carcinoma HFpEF Type 2 DM History HTN --Pt with pulmonary embolus likely provoked due to cancer --Lovenox 1mg/kg SQ BID for anticoagulation --Pt to undergo PleurX insertion with IR --Holding Lovenox tonight and AM to receive device --Can restart after device is in --Continue oxygen NC; maintain SpO2 >90% --Pt has opted to not pursue any treatment whether curative or palliative in terms of Stage IV Ca and chemotherapy --Norvasc 10mg qdaily held today as patient not hypertensive --Atenolol 25mg qdaily continued --Lasix 40mg qdaily PO continued FEN: Fluids: PO only Electrolyte abnormalities: None appreciated Nutrition: Regular diet PPX: DVT - See above GI - Not indicated Dispo: M/S; Pleur-X insertion tomorrow Case discussed with Dr. Leandro Kelly, Do - Im PGy-3
--- NOTE | 2019-07-23 07:50 | PN ---
Teaching Attending Note Name of Resident: Micah Kelly ATTENDING PHYSICIAN STATEMENT I saw and evaluated the patient. I reviewed the resident's note and discussed the case with the resident. I agree with the resident's findings and plan as documented. SUBJECTIVE: Elderly female sick looking complained of shortness of breath denies any chest pain. OBJECTIVE: Vital Signs Temperature 97.8 F 07/23/19 06:00 Pulse Rate 74 07/23/19 06:00 Respiratory Rate 18 07/23/19 06:00 Blood Pressure 107/53 L 07/23/19 06:00 O2 Sat by Pulse Oximetry (%) 98 07/22/19 21:00 General: Elderly woman, comfortable, not in distress HEENT; mucous membranes moist, n+ anemia, no jaundice, PERRLA, no nystagmus Neck: No JVD, supple, no bruit, thyroid palpably normal, normal carotid pulsations. Chest: Nontender, decreased air entry on right side CVS: S1-S2 regular Abdomen: Nondistended, soft, bowel sounds present. 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: AO X3 , no gross motor sensory deficit CBC, BMP 07/22/19 08:35 07/22/19 08:35 Active Medications Amlodipine Besylate (Norvasc -) 10 mg PO DAILY [facility] Last Admin: 07/22/19 13:32 Dose: Not Given Atenolol (Tenormin -) 25 mg PO DAILY [facility] Last Admin: 07/22/19 11:04 Dose: 25 mg Enoxaparin Sodium (Lovenox -) 80 mg SQ BID [facility] Last Admin: 07/22/19 11:04 Dose: 80 mg Furosemide (Lasix -) 40 mg PO DAILY [facility] Last Admin: 07/22/19 13:24 Dose: 40 mg ASSESSMENT AND PLAN:84yo female with h/o HTN, DM, LV diastolic dysfunction, metastatic colon cancer, recently hospitalized with right pleural effusion s/p thoracentesis who was admitted with worsening shortness of breath x 2 days. CTA chest done showing an acute pulmonary emoblism as well as re-accumulation of the right pleural effusion. 1. Pulmonary embolism: On anticoagulation with Lovenox, follow-up pulmonary recommendations. 2. Right-sided pleural effusion. Agree for pleurocentesis follow-up with IR. 3. Hypertension well controlled continue amlodipine and atenolol. 4. Hypoxic respiratory failure. Due to pleural effusion and pulmonary embolism continue current management O2 inhalation evaluate for home O2 therapy. 5. Diastolic heart failure continue beta-blockers and Lasix. 6. Colon cancer with mets and malignant pleural effusion: Refusing treatment consider palliative care consult. DVT prophylaxis: On therapeutic anticoagulation. Prognosis is guarded. Problem List - Problems (1) Pulmonary embolism Code(s): I26.99 - OTHER PULMONARY EMBOLISM WITHOUT ACUTE COR PULMONALE (2) Carcinoma, lung Code(s): C34.90 - MALIGNANT NEOPLASM OF UNSP PART OF UNSP BRONCHUS OR LUNG (3) HTN (hypertension) Code(s): I10 - ESSENTIAL (PRIMARY) HYPERTENSION (4) Pleural effusion Code(s): J90 - PLEURAL EFFUSION, NOT ELSEWHERE CLASSIFIED (5) Diastolic heart failure Code(s): I50.30 - UNSPECIFIED DIASTOLIC (CONGESTIVE) HEART FAILURE
[2019-07-23 08:17] LABS: HEMATOCRIT 30.7 % (32.4-45.2); HEMOGLOBIN 9.9 GM/dL (10.7-15.3); MCH 26.5 pg (25.7-33.7); MCHC 32.3 g/dl (32.0-36.0); MEAN CELL VOLUME 82.1 fl (80-96); MEAN PLT VOLUME 7.2 fl (7.5-11.1); PLATELET COUNT 280 K/MM3 (134-434); RBC 3.74 M/mm3 (3.60-5.2); RDW 18.8 % (11.6-15.6); WHITE BLOOD COUNT 7.5 K/mm3 (4.0-10.0)
[2019-07-23 08:32] LABS: BLOOD UREA NITROGEN 26.7 mg/dL (7-18); CALCIUM 9.2 mg/dL (8.5-10.1); CREATININE 0.8 mg/dL (0.55-1.3); POTASSIUM 4.3 mmol/L (3.5-5.1)
--- NOTE | 2019-07-23 09:09 | PN ---
Progress Note (short form) - Note Progress Note: HPI: No acute events overnight. Pt with continued dyspnea, but improved since admission. For PleurX device today with IR for malignant effusion Vital Signs Temperature 97.8 F 07/23/19 06:00 Pulse Rate 81 07/23/19 11:01 Respiratory Rate 23 H 07/23/19 11:01 Blood Pressure 112/67 07/23/19 11:01 O2 Sat by Pulse Oximetry (%) 100 07/23/19 11:01 PE: GENERAL: NAD, hard of hearing, Awake, alert, and fully oriented HEENT: NC/AT, XANDER, sclera anicteric, MMM LUNGS: Diminished breath sounds R base. No wheezes, and no crackles. No accessory muscle use. 2LNC HEART: RRR, normal S1 and S2 without murmur ABDOMEN: Soft, nontender, not distended, normoactive bowel sounds EXTREMITIES: 2+ pulses, warm. No calf tenderness. No peripheral edema. SKIN: Warm, dry, no rashes or lesions noted CBC, BMP 07/23/19 07:48 07/23/19 07:48 Active Medications Amlodipine Besylate (Norvasc -) 10 mg PO DAILY [facility] Last Admin: 07/22/19 13:32 Dose: Not Given Atenolol (Tenormin -) 25 mg PO DAILY [facility] Last Admin: 07/22/19 11:04 Dose: 25 mg Enoxaparin Sodium (Lovenox -) 80 mg SQ BID [facility] Last Admin: 07/22/19 11:04 Dose: 80 mg Furosemide (Lasix -) 40 mg PO DAILY [facility] Last Admin: 07/22/19 13:24 Dose: 40 mg Assessment and Plan: Acute provoked pulmonary embolus Moderate R Malignant effusion, reoccurring Stage IV Colon Carcinoma Normocytic anemia HFpEF Type 2 DM History HTN --Pt with pulmonary embolus likely provoked due to cancer --Lovenox 1mg/kg SQ BID for anticoagulation --Pt to undergo PleurX insertion with IR today --Lovenox has been on hold since yesterday --Restart per IR timing --Normocytic anemia likely from chronic disease --Will obtain iron studies and retic count for AM labs tomorrow --Continue oxygen NC; maintain SpO2 >90% --Pt has opted to not pursue any treatment whether curative or palliative in terms of Stage IV Ca and chemotherapy --Norvasc 10mg qdaily held today as patient not hypertensive --Atenolol 25mg qdaily continued --Lasix 40mg qdaily PO continued FEN: Fluids: PO only Electrolyte abnormalities: None appreciated Nutrition: Regular diet PPX: DVT - See above GI - Not indicated Dispo: M/S; Pleur-X insertion today Case discussed with Dr. Leandro Kelly, Do - Im PGy-3
[2019-07-23] MEDS: FUROSEMIDE 40 MG TABLET (FP) PO SCH (13:57)
[2019-07-23] MEDS: amLODIPine BESYLATE 10 MG TABLET (FP) PO SCH (13:57)
[2019-07-23] MEDS: ATENOLOL 25 MG TABLET (FP) PO SCH (13:57)
--- NOTE | 2019-07-24 07:50 | PN ---
Progress Note, Physician Chief Complaint: Complaint of right - Current Medication List Current Medications: Active Medications Amlodipine Besylate (Norvasc -) 10 mg PO DAILY [facility] Last Admin: 07/23/19 13:57 Dose: 10 mg Amoxicillin/Clavulanate Potassium (Augmentin - 500mg Tablet) 1 tab PO BID@0800, 1730 [facility] Atenolol (Tenormin -) 25 mg PO DAILY [facility] Last Admin: 07/23/19 13:57 Dose: 25 mg Enoxaparin Sodium (Lovenox -) 80 mg SQ BID [facility] Last Admin: 07/22/19 11:04 Dose: 80 mg Furosemide (Lasix -) 40 mg PO DAILY [facility] Last Admin: 07/23/19 13:57 Dose: 40 mg - Objective Vital Signs: Vital Signs Temperature 98.6 F 07/24/19 06:00 Pulse Rate 76 07/24/19 06:00 Respiratory Rate 18 07/24/19 06:00 Blood Pressure 119/51 L 07/24/19 06:00 O2 Sat by Pulse Oximetry (%) 100 07/23/19 21:00 General: Elderly woman, comfortable, not in distress HEENT; mucous membranes moist, n+ anemia, no jaundice, PERRLA, no nystagmus Neck: No JVD, supple, no bruit, thyroid palpably normal, normal carotid pulsations. Chest: Nontender, right-sided chest tube. CVS: S1-S2 regular Abdomen: Nondistended, soft, bowel sounds present. 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 CTA chest done showing an acute pulmonary emoblism as well as re-accumulation of the right pleural effusion. 1. Pulmonary embolism: On anticoagulation with Lovenox, follow-up pulmonary recommendations. 2. Right-sided pleural effusion. Agree for pleurocentesis follow-up with IR. 3. Hypertension well controlled continue amlodipine and atenolol. 4. Hypoxic respiratory failure. Due to pleural effusion and pulmonary embolism continue current management O2 inhalation evaluate for home O2 therapy. 5. Diastolic heart failure continue beta-blockers and Lasix. 6. Colon cancer with mets and malignant pleural effusion: Refusing treatment consider palliative care consult. 7. UTI: Urine culture to be faecalis patient is put on Augmentin 500 mg. Disposition On; subacute rehab DVT prophylaxis: On therapeutic anticoagulation. Prognosis is guarded. Labs: CBC, BMP 07/23/19 07:48 07/23/19 07:48 INR, PTT INR 1.32 (0.83-1.09) H 07/21/19 04:20 Problem List - Problems (1) Pulmonary embolism Code(s): I26.99 - OTHER PULMONARY EMBOLISM WITHOUT ACUTE COR PULMONALE (2) Carcinoma, lung Code(s): C34.90 - MALIGNANT NEOPLASM OF UNSP PART OF UNSP BRONCHUS OR LUNG (3) HTN (hypertension) Code(s): I10 - ESSENTIAL (PRIMARY) HYPERTENSION (4) Pleural effusion Code(s): J90 - PLEURAL EFFUSION, NOT ELSEWHERE CLASSIFIED (5) Diastolic heart failure Code(s): I50.30 - UNSPECIFIED DIASTOLIC (CONGESTIVE) HEART FAILURE
[2019-07-24] MEDS: AMOX TR/POT CLAV 500MG/125MG TABLETS (FP) PO SCH ×2 (08:36→17:24)
[2019-07-24 08:47] LABS: HEMOGLOBIN 11.3 GM/dL (10.7-15.3); MCH 26.8 pg (25.7-33.7); MCHC 32.3 g/dl (32.0-36.0); MEAN CELL VOLUME 82.8 fl (80-96); MEAN PLT VOLUME 7.4 fl (7.5-11.1); PLATELET COUNT 343 K/MM3 (134-434); RBC 4.23 M/mm3 (3.60-5.2); RDW 19.2 % (11.6-15.6); RETICULOCYTES 2.14 % (0.5-1.5); WHITE BLOOD COUNT 7.9 K/mm3 (4.0-10.0)
[2019-07-24] MEDS: ATENOLOL 25 MG TABLET (FP) PO SCH (10:19)
[2019-07-24] MEDS: ENOXAPARIN NA (PORCINE) 80 MG/0.8 ML DISP.SYRIN SQ SCH ×2 (10:19→21:38)
[2019-07-24] MEDS: amLODIPine BESYLATE 10 MG TABLET (FP) PO SCH (10:19)
[2019-07-24] MEDS: FUROSEMIDE 40 MG TABLET (FP) PO SCH (10:19)
--- NOTE | 2019-07-24 11:20 | PN ---
Progress Note (short form) - Note Progress Note: Some mild pressure at the Pleurx catheter site but no pain. Breathing feels a little better. Intake & Output 07/21/19 07/22/19 07/23/19 07/24/19 23:59 23:59 23:59 23:59 Intake Total 550 50 500 100 Balance 550 50 500 100 Weight 174 lb 8 oz 174 lb Last Vital Signs Temp Pulse Resp BP Pulse Ox 98.3 F 79 20 113/56 L 100 07/24/19 08:39 07/24/19 08:39 07/24/19 08:39 07/24/19 08:39 07/23/19 21:00 Active Medications Amlodipine Besylate (Norvasc -) 10 mg PO DAILY [facility] Last Admin: 07/24/19 10:19 Dose: 10 mg Amoxicillin/Clavulanate Potassium (Augmentin - 500mg Tablet) 1 tab PO BID@0800, 1730 [facility] Last Admin: 07/24/19 08:36 Dose: 1 tab Atenolol (Tenormin -) 25 mg PO DAILY [facility] Last Admin: 07/24/19 10:19 Dose: 25 mg Enoxaparin Sodium (Lovenox -) 80 mg SQ BID [facility] Last Admin: 07/24/19 10:19 Dose: 80 mg Furosemide (Lasix -) 40 mg PO DAILY [facility] Last Admin: 07/24/19 10:19 Dose: 40 mg Gen: NAD at rest Heart: RRR Lung: decreased breath sounds at the bases, Intact Right Pleurx catheter Abd: soft, nontender Ext: no edema Laboratory Results - last 24 hr 07/24/19 07/24/19 08:15 08:15 WBC 7.9 RBC 4.23 Hgb 11.3 Hct 35.0 MCV 82.8 MCH 26.8 MCHC 32.3 RDW 19.2 H Plt Count 343 D MPV 7.4 L Retic Count 2.14 H Iron 42 L TIBC 153 L Iron Saturation 27 Unsaturated IBC 111 L Ferritin 856.4 H Problem List - Problems (1) Pulmonary embolism Code(s): I26.99 - OTHER PULMONARY EMBOLISM WITHOUT ACUTE COR PULMONALE A/P Acute Pulmonary Embolism Mod-Large Right Pleural Effusion Atelectasis Metastatic Colon Ca LV Diastolic Dysfunction HTN DM - Access pleurx PRN - continue anticoagulation with lovenox - O2 to keep spO2 >90% - when ready for discharge, check ambulatory SpO2 on room air to assess for home O2 Dr Bautista
--- NOTE | 2019-07-24 11:30 | EKG ---
Test Reason : Blood Pressure : / mmHG Vent. Rate : 090 BPM Atrial Rate : 090 BPM P-R Int : 128 ms QRS Dur : 080 ms QT Int : 364 ms P-R-T Axes : 072 -27 044 degrees QTc Int : 445 ms NORMAL SINUS RHYTHM CANNOT RULE OUT ANTERIOR INFARCT (CITED ON OR BEFORE 21-JUL-2019) ABNORMAL ECG WHEN COMPARED WITH ECG OF 21-JUL-2019 04:48, NO SIGNIFICANT CHANGE WAS FOUND Confirmed by LEXUS GUERRERO MD ([id number]) on 07/24/2019 11:30:24 AM Referred By: ISRAEL EUCEDA DR Confirmed By:LEXUS GUERRERO MD
[2019-07-25] MEDS ORDERED: ACETAMINOPHEN 325 MG TABLET (FP) PO ONE ×2 (05:36→18:28)
--- NOTE | 2019-07-25 07:58 | PN ---
Progress Note, Physician Chief Complaint: Complaint of right History of Present Illness: Patient feels little less shortness of breath complained of weakness - Current Medication List Current Medications: Active Medications Amlodipine Besylate (Norvasc -) 10 mg PO DAILY [facility] Last Admin: 07/24/19 10:19 Dose: 10 mg Amoxicillin/Clavulanate Potassium (Augmentin - 500mg Tablet) 1 tab PO BID@0800, 1730 [facility] Last Admin: 07/24/19 17:24 Dose: 1 tab Atenolol (Tenormin -) 25 mg PO DAILY [facility] Last Admin: 07/24/19 10:19 Dose: 25 mg Enoxaparin Sodium (Lovenox -) 80 mg SQ BID [facility] Last Admin: 07/24/19 21:38 Dose: 80 mg Furosemide (Lasix -) 40 mg PO DAILY [facility] Last Admin: 07/24/19 10: Dose: 40 mg - Objective Vital Signs: Vital Signs Temperature 97.6 F 07/25/19 02:00 Pulse Rate 62 07/25/19 05:32 Respiratory Rate 24 H 07/25/19 05:32 Blood Pressure 124/68 07/25/19 05:32 O2 Sat by Pulse Oximetry (%) 100 07/24/19 21:00 General: Elderly woman sitting on chair, sick looking, comfortable, not in distress HEENT; mucous membranes moist, n+ anemia, no jaundice, PERRLA, no nystagmus Neck: No JVD, supple, no bruit, thyroid palpably normal, normal carotid pulsations. Chest: Nontender, right-sided chest tube. CVS: S1-S2 regular Abdomen: Nondistended, soft, bowel sounds present. 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 Problems reviewed: Yes Code(s): I26.99 - OTHER PULMONARY EMBOLISM WITHOUT ACUTE COR PULMONALE (2) Carcinoma, lung Assessment/Plan: He states for patient declined any intervention including palliative care. Problems reviewed: Yes Code(s): C34.90 - MALIGNANT NEOPLASM OF UNSP PART OF UNSP BRONCHUS OR LUNG (3) HTN (hypertension) Assessment/Plan: Well-controlled on current regimen. Problems reviewed: Yes Code(s): I10 - ESSENTIAL (PRIMARY) HYPERTENSION (4) Pleural effusion Assessment/Plan: Recurrent due to malignancy, status post Pleurx insertion, chest x-ray shows persistent effusion we will follow pulmonary recommendations. Problems reviewed: Yes Code(s): J90 - PLEURAL EFFUSION, NOT ELSEWHERE CLASSIFIED (5) Diastolic heart failure Assessment/Plan: At present compensated on Lasix. Problems reviewed: Yes Code(s): I50.30 - UNSPECIFIED DIASTOLIC (CONGESTIVE) HEART FAILURE (6) Type 2 diabetes mellitus Assessment/Plan: Accu-Chek correction dose insulin, restart Januvia and half dose of glimepiride 2 mg twice daily. Diabetes type. Problems reviewed: Yes Code(s): E11.9 - TYPE 2 DIABETES MELLITUS WITHOUT COMPLICATIONS (7) NABIL (acute kidney injury) Assessment/Plan: Patient is low blood pressure, rising BUN/creatinine we will hold Lasix gentle IV hydration normal saline 50 cc follow-up BMP in the morning. Problems reviewed: Yes Code(s): N17.9 - ACUTE KIDNEY FAILURE, UNSPECIFIED
[2019-07-25] MEDS: AMOX TR/POT CLAV 500MG/125MG TABLETS (FP) PO SCH ×2 (08:45→18:42)
[2019-07-25] MEDS: amLODIPine BESYLATE 10 MG TABLET (FP) PO SCH (10:24)
[2019-07-25] MEDS: ATENOLOL 25 MG TABLET (FP) PO SCH (10:24)
[2019-07-25] MEDS: FUROSEMIDE 40 MG TABLET (FP) PO SCH (10:24)
--- NOTE | 2019-07-25 10:24 | PN ---
Progress Note (short form) - Note Progress Note: Still with some mild pressure at the Pleurx catheter site but no pain. Breathing feels a little better. Noted had some increase SOB early this AM. CXR: increase right effusion Intake & Output 07/22/19 07/23/19 07/24/19 07/25/19 23:59 23:59 23:59 23:59 Intake Total 50 500 650 110 Balance 50 500 650 110 Weight 174 lb Last Vital Signs Temp Pulse Resp BP Pulse Ox 97.4 F L 70 22 H 96/42 L 100 07/25/19 09:58 07/25/19 09:58 07/25/19 09:58 07/25/19 09:58 07/24/19 21:00 Active Medications Amlodipine Besylate (Norvasc -) 10 mg PO DAILY [facility] Last Admin: 07/24/19 10:19 Dose: 10 mg Amoxicillin/Clavulanate Potassium (Augmentin - 500mg Tablet) 1 tab PO BID@0800, 1730 [facility] Last Admin: 07/25/19 08:45 Dose: 1 tab Atenolol (Tenormin -) 25 mg PO DAILY [facility] Last Admin: 07/24/19 10:19 Dose: 25 mg Enoxaparin Sodium (Lovenox -) 80 mg SQ BID [facility] Last Admin: 07/24/19 21:38 Dose: 80 mg Furosemide (Lasix -) 40 mg PO DAILY [facility] Last Admin: 07/24/19 10:19 Dose: 40 mg Gen: NAD at rest Heart: RRR Lung: decreased breath sounds at the bases: Right > Left, Intact Right Pleurx catheter Abd: soft, nontender Ext: no edema Problem List - Problems (1) Pulmonary embolism Code(s): I26.99 - OTHER PULMONARY EMBOLISM WITHOUT ACUTE COR PULMONALE A/P Acute Pulmonary Embolism Mod-Large Right Pleural Effusion Atelectasis Metastatic Colon Ca LV Diastolic Dysfunction HTN DM - Repeat CXR in AM - Access pleurx PRN: would hold for now as she appears comfortable and this will help to determine how rapidly the effusion will accumulate - continue anticoagulation with lovenox - O2 to keep spO2 >90% - when ready for discharge, check ambulatory SpO2 on room air to assess for home O2 Dr Bautista
[2019-07-25] MEDS: ENOXAPARIN NA (PORCINE) 80 MG/0.8 ML DISP.SYRIN SQ SCH ×2 (10:26→22:08)
[2019-07-25 10:28] LABS: BASO % 0.3 % (0-2.0); EOS % 0.1 % (0-4.5); HEMATOCRIT 32.3 % (32.4-45.2); HEMOGLOBIN 10.5 GM/dL (10.7-15.3); LYMPH % 13.5 % (8-40); MCH 26.9 pg (25.7-33.7); MCHC 32.6 g/dl (32.0-36.0); MEAN CELL VOLUME 82.5 fl (80-96); MEAN PLT VOLUME 7.5 fl (7.5-11.1); MONO % 6.9 % (3.8-10.2); NEUT % 79.2 % (42.8-82.8); PLATELET COUNT 327 K/MM3 (134-434); RBC 3.91 M/mm3 (3.60-5.2); RDW 19.5 % (11.6-15.6); WHITE BLOOD COUNT 7.8 K/mm3 (4.0-10.0)
--- NOTE | 2019-07-25 10:50 | EKG ---
Test Reason : Blood Pressure : / mmHG Vent. Rate : 080 BPM Atrial Rate : 080 BPM P-R Int : 118 ms QRS Dur : 084 ms QT Int : 384 ms P-R-T Axes : 067 -17 042 degrees QTc Int : 442 ms NORMAL SINUS RHYTHM WITH SINUS ARRHYTHMIA NORMAL ECG WHEN COMPARED WITH ECG OF 23-JUL-2019 13:54, NO SIGNIFICANT CHANGE WAS FOUND Confirmed by LEXUS GUERRERO MD ([id number]) on 07/25/2019 10:50:08 AM Referred By: Confirmed By:LEXUS GUERRERO MD
[2019-07-25 10:59] LABS: ANION GAP 8 MMOL/L (8-16); BLOOD UREA NITROGEN 37.5 mg/dL (7-18); CALCIUM 9.4 mg/dL (8.5-10.1); CHLORIDE 95 mmol/L (98-107); CO2 32 mmol/L (21-32); CREATININE 1.4 mg/dL (0.55-1.3); GLUCOSE,RANDOM 224 mg/dL (74-106); POTASSIUM 4.3 mmol/L (3.5-5.1); SODIUM 135 mmol/L (136-145)
[2019-07-25] MEDS ORDERED: SODIUM CHLORIDE 1,000 ML IV SCH (11:45)
[2019-07-25] MEDS: INSULIN SLIDING SCALE (NOVOLOG) 1 VIAL SQ SCH (16:41)
[2019-07-25] MEDS ORDERED: GLIMEPIRIDE 4 MG TABLET (FP) PO SCH (22:00)
[2019-07-26] MEDS: INSULIN SLIDING SCALE (NOVOLOG) 1 VIAL SQ SCH ×3 (06:21→17:44)
[2019-07-26] MEDS ORDERED: sitaGLIPtin PHOSPHATE 50 MG TABLET PO SCH (07:00)
[2019-07-26] MEDS ORDERED: GLIMEPIRIDE 4 MG TABLET (FP) PO SCH (07:00)
[2019-07-26 08:11] LABS: BASO % 0.7 % (0-2.0); EOS % 0.5 % (0-4.5); HEMATOCRIT 30.5 % (32.4-45.2); MCH 26.8 pg (25.7-33.7); MCHC 32.9 g/dl (32.0-36.0); MEAN CELL VOLUME 81.6 fl (80-96); MEAN PLT VOLUME 7.5 fl (7.5-11.1); MONO % 7.4 % (3.8-10.2); NEUT % 82.4 % (42.8-82.8); PLATELET COUNT 276 K/MM3 (134-434); RBC 3.74 M/mm3 (3.60-5.2); RDW 19.2 % (11.6-15.6); WHITE BLOOD COUNT 7.9 K/mm3 (4.0-10.0)
[2019-07-26] MEDS: AMOX TR/POT CLAV 500MG/125MG TABLETS (FP) PO SCH (08:12)
[2019-07-26 08:48] LABS: ALBUMIN 1.9 g/dl (3.4-5.0); BILIRUBIN,TOTAL 1.4 mg/dL (0.2-1); CALCIUM 9.1 mg/dL (8.5-10.1); CREATININE 1.3 mg/dL (0.55-1.3); POTASSIUM 4.5 mmol/L (3.5-5.1); TOT PROT 5.7 g/dl (6.4-8.2)
[2019-07-26] MEDS ORDERED: SODIUM CHLORIDE 250 ML IV STA (08:49)
[2019-07-26] MEDS: amLODIPine BESYLATE 10 MG TABLET (FP) PO SCH (09:43)
[2019-07-26] MEDS: ENOXAPARIN NA (PORCINE) 80 MG/0.8 ML DISP.SYRIN SQ SCH ×2 (09:43→21:58)
[2019-07-26] MEDS: ASPIRIN 81 MG CHEWABLE TABLETS PO SCH (09:43)
[2019-07-26] MEDS: ATENOLOL 25 MG TABLET (FP) PO SCH (09:43)
--- NOTE | 2019-07-26 10:36 | PN ---
Progress Note (short form) - Note Progress Note: Feels very tired and run down this morning. Minimal pressure at the Pleurx catheter site but no pain. Breathing feels about the same. Intake & Output 07/23/19 07/24/19 07/25/19 07/26/19 23:59 23:59 23:59 23:59 Intake Total 500 650 620 600 Balance 500 650 620 600 Last Vital Signs Temp Pulse Resp BP Pulse Ox 97.9 F 83 20 101/48 L 100 07/26/19 09:37 07/26/19 09:37 07/26/19 09:37 07/26/19 09:37 07/25/19 21:00 Active Medications Amlodipine Besylate (Norvasc -) 10 mg PO DAILY [facility] Last Admin: 07/26/19 09:43 Dose: Not Given Aspirin (Asa -) 81 mg PO DAILY [facility] Last Admin: 07/26/19 09:43 Dose: 81 mg Atenolol (Tenormin -) 25 mg PO DAILY [facility] Last Admin: 07/26/19 09:43 Dose: Not Given Enoxaparin Sodium (Lovenox -) 80 mg SQ BID [facility] Last Admin: 07/26/19 09:43 Dose: 80 mg Insulin Aspart (Novolog Vial Sliding Scale -) 1 vial SQ TIDAC [facility]; Protocol Last Admin: 07/26/19 06:21 Dose: Not Given Gen: NAD at rest Heart: RRR Lung: decreased breath sounds at the bases: Right > Left, Intact Right Pleurx catheter Abd: soft, nontender Ext: no edema Laboratory Results - last 24 hr 07/25/19 07/25/19 07/26/19 10:10 16:32 06:19 WBC RBC Hgb Hct MCV MCH MCHC RDW Plt Count MPV Absolute Neuts (auto) Neutrophils % Lymphocytes % Monocytes % Eosinophils % Basophils % Nucleated RBC % Sodium 135 L Potassium 4.3 Chloride 95 L Carbon Dioxide 32 Anion Gap 8 BUN 37.5 H Creatinine 1.4 H Est GFR (CKD-EPI)AfAm 39.61 Est GFR (CKD-EPI)NonAf 34.18 POC Glucometer 183 132 Random Glucose 224 H Calcium 9.4 Total Bilirubin AST ALT Alkaline Phosphatase Troponin I < 0.02 Total Protein Albumin 07/26/19 07/26/19 07:15 07:15 WBC 7.9 RBC 3.74 Hgb 10.0 L Hct 30.5 L MCV 81.6 MCH 26.8 MCHC 32.9 RDW 19.2 H Plt Count 276 MPV 7.5 Absolute Neuts (auto) 6.5 Neutrophils % 82.4 Lymphocytes % 9.0 D Monocytes % 7.4 Eosinophils % 0.5 D Basophils % 0.7 Nucleated RBC % 0 Sodium 135 L Potassium 4.5 Chloride 96 L Carbon Dioxide 32 Anion Gap 7 L BUN 39.0 H Creatinine 1.3 Est GFR (CKD-EPI)AfAm 43.32 Est GFR (CKD-EPI)NonAf 37.38 POC Glucometer Random Glucose 132 H Calcium 9.1 Total Bilirubin 1.4 H AST 170 H ALT 49 Alkaline Phosphatase 467 H Troponin I Total Protein 5.7 L Albumin 1.9 L Problem List - Problems (1) Pulmonary embolism Code(s): I26.99 - OTHER PULMONARY EMBOLISM WITHOUT ACUTE COR PULMONALE A/P Acute Pulmonary Embolism Mod-Large Right Pleural Effusion Atelectasis Metastatic Colon Ca LV Diastolic Dysfunction HTN DM - Repeat portable CXR - Access pleurx PRN - continue anticoagulation with lovenox - O2 to keep spO2 >90% - when ready for discharge, check ambulatory SpO2 on room air to assess for home O2 Dr Bautista
[2019-07-26] MEDS ORDERED: INSULIN (NOVOLOG) ASPART 100 UNITS/ML 10ML VIAL ONE (11:33)
--- NOTE | 2019-07-26 12:08 | PN ---
Addendum entered and electronically signed by Micah Kelly, RESIDENT 07/26/19 12:11: ADDENDUM: Problems: Acute kidney injury; improved from 1.4 to 1.3 with gentle hydration. Will stop standing fluids and bolus 250cc NS. Monitor Cr and avoid nephrotoxic agents. Original Note: Progress Note (short form) - Note Progress Note: HPI: Effusion persisting on weekend. Repeat CXR this AM for assessment of change. Pt today feels generalized weakness without any focal weakness. Shortness of breath improved compared to admission day. Vital Signs Temperature 97.9 F 07/26/19 09:37 Pulse Rate 83 07/26/19 09:37 Respiratory Rate 20 07/26/19 09:37 Blood Pressure 101/48 L 07/26/19 09:37 O2 Sat by Pulse Oximetry (%) 100 07/25/19 21:00 PE: GENERAL: NAD, hard of hearing, Awake, alert, and fully oriented HEENT: NC/AT, XANDER, sclera anicteric, MMM LUNGS: Diminished breath sounds R base. No wheezes, and no crackles. No accessory muscle use. 2LNC HEART: RRR, normal S1 and S2 without murmur ABDOMEN: Soft, nontender, not distended, normoactive bowel sounds EXTREMITIES: 2+ pulses, warm. No calf tenderness. No peripheral edema. SKIN: Warm, dry, no rashes or lesions noted CBC, BMP 07/26/19 07:15 07/26/19 07:15 Microbiology 07/21/19 08:30 Urine - Urine Clean Catch Urine Culture - Final Enterococcus Faecalis Active Medications Amlodipine Besylate (Norvasc -) 10 mg PO DAILY [facility] Last Admin: 07/26/19 09:43 Dose: Not Given Aspirin (Asa -) 81 mg PO DAILY [facility] Last Admin: 07/26/19 09:43 Dose: 81 mg Atenolol (Tenormin -) 25 mg PO DAILY [facility] Last Admin: 07/26/19 09:43 Dose: Not Given Enoxaparin Sodium (Lovenox -) 80 mg SQ BID [facility] Last Admin: 07/26/19 09:43 Dose: 80 mg Insulin Aspart (Novolog Vial Sliding Scale -) 1 vial SQ TIDAC [facility]; Protocol Last Admin: 07/26/19 11:34 Dose: 2 units Assessment and Plan: Acute provoked pulmonary embolus Moderate R Malignant effusion, reoccurring Stage IV Colon Carcinoma Normocytic anemia HFpEF Type 2 DM History HTN --Pt with pulmonary embolus likely provoked due to cancer --Lovenox 1mg/kg SQ BID --CXR this AM for assessment of pleural effusion change --Can extrapolate ordering of PleurX devices --Normocytic anemia noted to be iron deficiency and of chronic disease --Ferrous sulfate ordered PO daily; Colace ordered PRN --Stable H/H --Continue oxygen NC; maintain SpO2 >90% --Pt has opted to not pursue any treatment whether curative or palliative in terms of Stage IV Ca and chemotherapy --GOC discussion alongside of granddaughter for advanced directives --Norvasc 10mg qdaily --Atenolol 25mg qdaily continued FEN: Fluids: PO only Electrolyte abnormalities: None appreciated Nutrition: Regular diet PPX: DVT - See above GI - Not indicated Dispo: M/S; will need rehab vs. [facility]? Case discussed with Dr. Brennen Kelly, Do - IM PGY-3 <Micah Kelly - Last Filed: 07/26/19 12:09> - Note Progress Note: Seen and examined; agree with above assessment and plan as documented aside from as supplemented by myself. All connolly historical and PE findings alongside labs and diagnostics reviewed in depth and discussed with resident team and indicated consulting services. No additional events to report aside from that she states she has had time to think about potential options with chemotherapy. She is clear about not wanting a surgery but indicates that she would like to discuss this with an oncologist. Recently, she saw Dr. Galicia at the end of June and following a discussion with the patient's PCP it was elucidated that she had no desire to discuss radical treatment options. She appears to have poor insight into her overall condition and a family meeting is in order prior to discharge. No nre complaints, persay, to day, but states that the soreness someaht does persist with moderate improvement at the pleurex site. No CP, SOB, etc. 10 sys ROS done and negative aside from HPI VS, labs, and imaging reviewed NAD, AAO, resting in bed. Frail appearing. HR wnl, s1/2 heard Lungs with poor respiratory effor but no focal findings, w/ sym exp NT ND +BS CN2-12 wnl, no fnd Normal mood, appropriate behavior. Restricted insight. Bandage c/d/i Imaging and EKG reviewed from admission Prior consultations with heme/onc reviewed A/P: Patient presents for recurring malignant effusion; she would like to discuss palliative chemotherapy options with oncology but is not interested in radical treatment. She remains on Lovenox for her provoked PE and on PRN O2. She will require assessment of placement and home O2 and clearnace from subspecialty services prior to DC. Followup PT recs, plan for family meeting prior to DC. Problems include: -Shortness of breath 2/2 chronic recurring respiratory failure secondary to malignant effusion s/p pleurex and removal; symptoms remain improved. Likely will recurr and is a candidate for potiential O2 on DC. Pre and Post. -Physical deconditioning 2/2 multiple comorbidities; likely will require placement. -Metastatic colon carcinoma; prior oncology notes reviewed. Now wishes to pursue discussion regarding palliative chemotherapy as she is considering it due to the worsening of her symptoms and the increased frequency of bad days to good. She needs to have a clear HCP designation and MOLST form completed and signed prior to discharge due to the complex issues surrounding her care. I suspect that she has impaired insight into this condition and underlying MCI/ dementia may be at play. -Anemia (likely multifactoral; due to chronic disease, cancer, etc. Trend CBC. Guideline-based transfusion perameters to be observed). -Pulmonary embolism in the setting of malignancy; continue full dose lovenox per rigo. Monitor renal function. -Hx HFpEF; careful fluid management. -Likely underlying CKD -Elevated BUN (likely 2/2 underlying oncologic issues, CKD, etc.) <Rivas Hutton - Last Filed: 07/28/19 01:57>
[2019-07-26] MEDS: FERROUS SO4 325 MG TABLET (FP) PO SCH (13:38)
--- NOTE | 2019-07-26 15:29 | CONSULT ---
Consultation: REQUESTING PROVIDER: Heme/Onc Service CONSULT REQUEST: We have been asked to medically evaluate this patient for metastatic colon CA. 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 On my interview, pt is s/p thoracentesis and stated she is breathing much better. She stated that she had previously been uninterested in any kind of chemotherapy, but has reconsidered and would be open to discussing her options. She would like to speak with the oncologist. She admits to 6-7 lbs of weight loss over 2 months. She denies fever, chills, nausea, vomiting, constipation, diarrhea. REVIEW OF SYSTEMS: CONSTITUTIONAL: weight change Absent: fever, chills, diaphoresis, generalized weakness, malaise, loss of appetite, HEENT: Absent: rhinorrhea, nasal congestion, throat pain, throat swelling, difficulty swallowing, mouth swelling, ear pain, eye pain, visual changes CARDIOVASCULAR: Absent: chest pain, syncope, palpitations, irregular heart rate, lightheadedness , peripheral edema RESPIRATORY: shortness of breath Absent: cough, , dyspnea with exertion, orthopnea, wheezing, stridor, hemoptysis GASTROINTESTINAL: Absent: abdominal pain, abdominal distension, nausea, vomiting, diarrhea, constipation, melena, hematochezia GENITOURINARY: Absent: dysuria, frequency, urgency, hesitancy, hematuria, flank pain, genital pain MUSCULOSKELETAL: Absent: myalgia, arthralgia, joint swelling, back pain, neck pain SKIN: Absent: rash, itching, pallor HEMATOLOGIC/IMMUNOLOGIC: Absent: easy bleeding, easy bruising, lymphadenopathy, frequent infections ENDOCRINE: Absent: unexplained weight gain, unexplained weight loss, heat intolerance, cold intolerance NEUROLOGIC: Absent: headache, focal weakness or paresthesias, dizziness, unsteady gait, seizure, mental status changes, bladder or bowel incontinence PSYCHIATRIC: Absent: anxiety, depression, suicidal or homicidal ideation, hallucinations. PHYSICAL EXAMINATION Vital Signs - 24 hr 07/25/19 07/25/19 07/25/19 18:00 21:00 22:00 Temperature 98.0 F 97.5 F L Pulse Rate 66 82 Respiratory 18 20 20 Rate Blood Pressure 95/47 L 100/45 L O2 Sat by Pulse 100 Oximetry (%) 07/26/19 07/26/19 07/26/19 02:00 06:00 09:37 Temperature 97.7 F 97.6 F 97.9 F Pulse Rate 82 75 83 Respiratory 20 20 20 Rate Blood Pressure 104/51 L 95/47 L 101/48 L O2 Sat by Pulse Oximetry (%) 07/26/19 15:03 Temperature 98.3 F Pulse Rate 86 Respiratory 20 Rate Blood Pressure 124/52 L O2 Sat by Pulse Oximetry (%) Gen: NAD HEENT: NCAT, EOMI, poor dentition Neck: supple, no jvd, no lad noted Cardio: rrr with extrasystoles, normal s1s2, soft 2/6 systolic murmur RUSB Pulm: decreased breath sounds R>L Abd: obese, soft, nontender, nondistended Laboratory Results - last 24 hr 07/25/19 07/26/19 07/26/19 16:32 06:19 07:15 WBC 7.9 RBC 3.74 Hgb 10.0 L Hct 30.5 L MCV 81.6 MCH 26.8 MCHC 32.9 RDW 19.2 H Plt Count 276 MPV 7.5 Absolute Neuts (auto) 6.5 Neutrophils % 82.4 Lymphocytes % 9.0 D Monocytes % 7.4 Eosinophils % 0.5 D Basophils % 0.7 Nucleated RBC % 0 Sodium Potassium Chloride Carbon Dioxide Anion Gap BUN Creatinine Est GFR (CKD-EPI)AfAm Est GFR (CKD-EPI)NonAf POC Glucometer 183 132 Random Glucose Calcium Total Bilirubin AST ALT Alkaline Phosphatase Total Protein Albumin 07/26/19 07/26/19 07:15 11:28 WBC RBC Hgb Hct MCV MCH MCHC RDW Plt Count MPV Absolute Neuts (auto) Neutrophils % Lymphocytes % Monocytes % Eosinophils % Basophils % Nucleated RBC % Sodium 135 L Potassium 4.5 Chloride 96 L Carbon Dioxide 32 Anion Gap 7 L BUN 39.0 H Creatinine 1.3 Est GFR (CKD-EPI)AfAm 43.32 Est GFR (CKD-EPI)NonAf 37.38 POC Glucometer 182 Random Glucose 132 H Calcium 9.1 Total Bilirubin 1.4 H AST 170 H ALT 49 Alkaline Phosphatase 467 H Total Protein 5.7 L Albumin 1.9 L Active Medications Generic Name Dose Route Start Last Admin Trade Name Freq PRN Reason Stop Dose Admin Amlodipine Besylate 10 mg 07/21/19 10:00 07/26/19 09:43 Norvasc - PO Not Given DAILY [facility] Aspirin 81 mg 07/26/19 10:00 07/26/19 09:43 Asa - PO 81 mg DAILY [facility] Administration Atenolol 25 mg 07/21/19 10:00 07/26/19 09:43 Tenormin - PO Not Given DAILY [facility] Docusate Sodium 100 mg 07/27/19 10:00 Colace - PO DAILY [facility] Enoxaparin Sodium 80 mg 07/21/19 22:00 07/26/19 09:43 Lovenox - SQ 80 mg BID [facility] Administration Ferrous Sulfate 325 mg 07/26/19 12:15 07/26/19 13:38 Feosol - PO 325 mg DAILY [facility] Administration Insulin Aspart 1 vial 07/25/19 16:30 07/26/19 11:34 Novolog Vial Sliding Scale - SQ 2 units TIDAC [facility] Administration Protocol ASSESSMENT/PLAN: Pt is an 84 y/o F with known stage IV metatstatic colon CA (first Dx 12 years ago) who presented to hospital with complaint of SOB. She was found to have pleural effusion, which was drained and improved her symptoms greatly. She initially was resistant to chemotherapy but would now like to discuss her options with heme/onc. Stage IV colon CA -pt may benefit from palliative chemotherapy -will discuss further with patient. Pleural effusion -s/p thoracentesis/pleurx -breathing well at this time Dispo: We will continue to follow the patient. Thank you for this consultative opportunity. Visit type - Emergency Visit Emergency Visit: No - New Patient This patient is new to me today: Yes Date on this admission: 07/26/19 - Critical Care Critical Care patient: No ATTENDING PHYSICIAN STATEMENT I saw and evaluated the patient. I reviewed the resident's note and discussed the case with the resident. I agree with the resident's findings and plan as documented. SUBJECTIVE: OBJECTIVE: ASSESSMENT AND PLAN:
[2019-07-27] MEDS: INSULIN SLIDING SCALE (NOVOLOG) 1 VIAL SQ SCH ×3 (07:13→17:39)
[2019-07-27 09:30] LABS: HEMATOCRIT 32.3 % (32.4-45.2); HEMOGLOBIN 10.4 GM/dL (10.7-15.3); MCH 26.6 pg (25.7-33.7); MCHC 32.3 g/dl (32.0-36.0); MEAN CELL VOLUME 82.2 fl (80-96); MEAN PLT VOLUME 7.6 fl (7.5-11.1); PLATELET COUNT 280 K/MM3 (134-434); RBC 3.93 M/mm3 (3.60-5.2); RDW 19.5 % (11.6-15.6)
[2019-07-27 10:04] LABS: BLOOD UREA NITROGEN 40.7 mg/dL (7-18); CALCIUM 9.3 mg/dL (8.5-10.1); CREATININE 1.2 mg/dL (0.55-1.3); MAGNESIUM 2.1 mg/dL (1.8-2.4); POTASSIUM 4.4 mmol/L (3.5-5.1)
[2019-07-27] MEDS: ASPIRIN 81 MG CHEWABLE TABLETS PO SCH (11:10)
[2019-07-27] MEDS: ATENOLOL 25 MG TABLET (FP) PO SCH (11:10)
[2019-07-27] MEDS: ENOXAPARIN NA (PORCINE) 80 MG/0.8 ML DISP.SYRIN SQ SCH ×2 (11:10→22:12)
[2019-07-27] MEDS: FERROUS SO4 325 MG TABLET (FP) PO SCH (11:10)
[2019-07-27] MEDS: amLODIPine BESYLATE 10 MG TABLET (FP) PO SCH (11:10)
--- NOTE | 2019-07-27 11:10 | PN ---
Progress Note (short form) - Note Progress Note: Breathing feels better today. Slept well last night. Discomfort on her buttocks due to skin breakdown. Intake & Output 07/24/19 07/25/19 07/26/19 07/27/19 23:59 23:59 23:59 23:59 Intake Total 096 282 1902 Balance 685 651 0298 Last Vital Signs Temp Pulse Resp BP Pulse Ox 98.2 F 88 20 117/56 L 99 07/27/19 11:08 07/27/19 11:08 07/27/19 11:08 07/27/19 11:08 07/26/19 21:00 Active Medications Amlodipine Besylate (Norvasc -) 10 mg PO DAILY [facility] Aspirin (Asa -) 81 mg PO DAILY [facility] Last Admin: 07/26/19 09:43 Dose: 81 mg Atenolol (Tenormin -) 25 mg PO DAILY [facility] Last Admin: 07/26/19 09:43 Dose: Not Given Docusate Sodium (Colace -) 100 mg PO DAILY [facility] Enoxaparin Sodium (Lovenox -) 80 mg SQ BID [facility] Last Admin: 07/26/19 21:58 Dose: 80 mg Ferrous Sulfate (Feosol -) 325 mg PO DAILY [facility] Last Admin: 07/26/19 13:38 Dose: 325 mg Insulin Aspart (Novolog Vial Sliding Scale -) 1 vial SQ TIDAC [facility]; Protocol Last Admin: 07/27/19 07:13 Dose: 2 units Gen: NAD at rest Heart: RRR Lung: decreased breath sounds at the bases: Right > Left, Intact Right Pleurx catheter Abd: soft, nontender Ext: no edema Laboratory Results - last 24 hr 07/26/19 07/26/19 07/27/19 11:28 17:41 07:11 WBC RBC Hgb Hct MCV MCH MCHC RDW Plt Count MPV Sodium Potassium Chloride Carbon Dioxide Anion Gap BUN Creatinine Est GFR (CKD-EPI)AfAm Est GFR (CKD-EPI)NonAf POC Glucometer 182 158 183 Random Glucose Calcium Magnesium 07/27/19 07/27/19 09:05 09:05 WBC 9.0 RBC 3.93 Hgb 10.4 L Hct 32.3 L MCV 82.2 MCH 26.6 MCHC 32.3 RDW 19.5 H Plt Count 280 MPV 7.6 Sodium 135 L Potassium 4.4 Chloride 99 Carbon Dioxide 30 Anion Gap 6 L BUN 40.7 H Creatinine 1.2 Est GFR (CKD-EPI)AfAm 47.72 Est GFR (CKD-EPI)NonAf 41.18 POC Glucometer Random Glucose 195 H Calcium 9.3 Magnesium 2.1 Problem List - Problems (1) Pulmonary embolism Code(s): I26.99 - OTHER PULMONARY EMBOLISM WITHOUT ACUTE COR PULMONALE A/P Acute Pulmonary Embolism Mod-Large Right Pleural Effusion Atelectasis Metastatic Colon Ca LV Diastolic Dysfunction HTN DM - Access pleurx PRN: Has not needed drainage since initial last week - continue anticoagulation with lovenox - O2 to keep spO2 >90% - when ready for discharge, check ambulatory SpO2 on room air to assess for home O2 Dr Bautista
[2019-07-27] MEDS: DOCUSATE SODIUM 100 MG CAPSULE (FP) PO SCH (11:44)
[2019-07-27] MEDS ORDERED: INSULIN (NOVOLOG) ASPART 100 UNITS/ML 10ML VIAL ONE (12:00)
--- NOTE | 2019-07-27 12:02 | PN ---
Progress Note (short form) - Note Progress Note: HPI: Events noted last PM. Pt with only complaint of sacral pain being escalated. Pt reports sore has been there for over 1 mo. Pt reports slight decrease in appetite, but is willing to see PT today. Vital Signs Temperature 98.2 F 07/27/19 11:08 Pulse Rate 88 07/27/19 11:08 Respiratory Rate 20 07/27/19 11:08 Blood Pressure 117/56 L 07/27/19 11:08 O2 Sat by Pulse Oximetry (%) 99 07/26/19 21:00 PE: GENERAL: NAD, hard of hearing, Awake, alert, and fully oriented HEENT: NC/AT, XANDER, sclera anicteric, MMM LUNGS: PleurX noted. Still slight diminished breath sounds R base >L base. No wheezes, and no crackles. No accessory muscle use. 2LNC HEART: RRR, normal S1 and S2 without murmur ABDOMEN: Soft, nontender, not distended, normoactive bowel sounds SACRUM: Sacral wound noted EXTREMITIES: 2+ pulses, warm. No calf tenderness. No peripheral edema. SKIN: Warm, dry, no rashes or lesions noted CBC, BMP 07/27/19 09:05 07/27/19 09:05 Microbiology 07/21/19 08:30 Urine - Urine Clean Catch Urine Culture - Final Enterococcus Faecalis Active Medications Amlodipine Besylate (Norvasc -) 10 mg PO DAILY [facility] Last Admin: 07/27/19 11:10 Dose: 10 mg Aspirin (Asa -) 81 mg PO DAILY [facility] Last Admin: 07/27/19 11:10 Dose: 81 mg Atenolol (Tenormin -) 25 mg PO DAILY [facility] Last Admin: 07/27/19 11:10 Dose: 25 mg Docusate Sodium (Colace -) 100 mg PO DAILY [facility] Last Admin: 07/27/19 11:44 Dose: Not Given Enoxaparin Sodium (Lovenox -) 80 mg SQ BID [facility] Last Admin: 07/27/19 11:10 Dose: 80 mg Ferrous Sulfate (Feosol -) 325 mg PO DAILY [facility] Last Admin: 07/27/19 11:10 Dose: 325 mg Insulin Aspart (Novolog Vial Sliding Scale -) 1 vial SQ TIDAC [facility]; Protocol Last Admin: 07/27/19 12:05 Dose: 2 units Assessment and Plan: Acute provoked pulmonary embolus Moderate R Malignant effusion, reoccurring Chronic sacral ulceration Stage IV Colon Carcinoma Normocytic anemia HFpEF Type 2 DM History HTN --Ordered MRCP today to r/o biliary tree obstruction 2/2 to liver mets --Lipase added on for further information regarding above --Can offload sacral ulcer with frequent turning --Silvadene to affected area for wound healing --Pt with pulmonary embolus likely provoked due to cancer --Lovenox 1mg/kg SQ BID --Can access PleurX device PRN --Normocytic anemia noted to be iron deficiency and of chronic disease --Ferrous sulfate PO daily; Colace ordered PRN --Stable H/H --Continue oxygen NC; maintain SpO2 >90%; will need pre/post prior to discharge --Pt has opted to not pursue any treatment whether curative or palliative in terms of Stage IV Ca and chemotherapy --GOC discussion alongside of granddaughter for advanced directives --Norvasc 10mg qdaily --Atenolol 25mg qdaily continued FEN: Fluids: PO only Electrolyte abnormalities: None appreciated Nutrition: Regular diet PPX: DVT - See above GI - Not indicated Dispo: M/S; will need rehab Case discussed with Dr. Brennen Kelly, Do - IM PGY-3 <Micah Kelly - Last Filed: 07/27/19 12:57> - Note Progress Note: Seen and examined; agree with above assessment and plan as documented aside from as supplemented by myself. All connolly historical and PE findings alongside labs and diagnostics reviewed in depth and discussed with resident team and indicated consulting services. Will need rehab; DC planning; consulting with social work and clearing DC plans with subspecialty services. Pending authorization anticipate DC in 24-48 hours. Stage II Sacral noted based on timing and activity level woul dhave been present on admission most likely. 10 sys ROS done and negative aside from HPI VS, labs, and imaging reviewed NAD, AAO, resting in bed. Frail appearing. HR wnl, s1/2 heard Lungs with poor respiratory effor but no focal findings, w/ sym exp NT ND +BS CN2-12 wnl, no fnd Normal mood, appropriate behavior. Restricted insight. Bandage c/d/i Imaging and EKG reviewed from admission Prior consultations with heme/onc reviewed A/P: Patient continues to improve relative to her presentation; DC planning. Problems include: -Shortness of breath 2/2 chronic recurring respiratory failure secondary to malignant effusion s/p pleurex and removal; plan for chronic home o2 requirements. Pre and post again in AM. -Physical deconditioning 2/2 multiple comorbidities; needs rehab. Would qualify for hospice care. Goals of care discussion in AM. -Metastatic colon carcinoma; prior oncology notes reviewed. MOLST form and goals of care discussion needs to be completed. -Anemia (stable; OP FU with heme) -Pulmonary embolism in the setting of malignancy; continue full dose lovenox per rigo. Monitor renal function. -Hx HFpEF; resume home meds on DC -Likely underlying CKD -Elevated BUN (likely 2/2 underlying oncologic issues, CKD, etc.) <Rivas Hutton - Last Filed: 07/28/19 02:01>
[2019-07-27] MEDS: SILVER SULFADIAZINE 1% TOP CREAM 50 GM JAR TP SCH (19:21)
[2019-07-28] MEDS: INSULIN SLIDING SCALE (NOVOLOG) 1 VIAL SQ SCH ×3 (06:55→17:10)
[2019-07-28] MEDS: ASPIRIN 81 MG CHEWABLE TABLETS PO SCH (09:29)
[2019-07-28] MEDS: FERROUS SO4 325 MG TABLET (FP) PO SCH (09:29)
[2019-07-28] MEDS: DOCUSATE SODIUM 100 MG CAPSULE (FP) PO SCH (09:29)
[2019-07-28] MEDS: ATENOLOL 25 MG TABLET (FP) PO SCH (09:29)
[2019-07-28] MEDS: ENOXAPARIN NA (PORCINE) 80 MG/0.8 ML DISP.SYRIN SQ SCH (09:30)
[2019-07-28] MEDS: SILVER SULFADIAZINE 1% TOP CREAM 50 GM JAR TP SCH (09:31)
[2019-07-28 10:10] LABS: ALBUMIN 1.9 g/dl (3.4-5.0); BILIRUBIN,TOTAL 2.2 mg/dL (0.2-1); BLOOD UREA NITROGEN 42.7 mg/dL (7-18); CALCIUM 9.3 mg/dL (8.5-10.1); CREATININE 1.1 mg/dL (0.55-1.3); POTASSIUM 4.8 mmol/L (3.5-5.1); TOT PROT 5.8 g/dl (6.4-8.2)
[2019-07-28] MEDS: amLODIPine BESYLATE 10 MG TABLET (FP) PO SCH (11:54)
[2019-07-28 12:07] LABS: BILIRUBIN,DIRECT 1.8 mg/dL (0.0-0.2)
--- NOTE | 2019-07-28 12:40 | PN ---
Progress Note, Physician History of Present Illness: PULMONARY ALERT,FEELING BETTER,-RESP DISTRESS - Current Medication List Current Medications: Active Medications Amlodipine Besylate (Norvasc -) 10 mg PO DAILY [facility] Last Admin: 07/28/19 11:54 Dose: 10 mg Aspirin (Asa -) 81 mg PO DAILY [facility] Last Admin: 07/28/19 09:29 Dose: 81 mg Atenolol (Tenormin -) 25 mg PO DAILY [facility] Last Admin: 07/28/19 09:29 Dose: 25 mg Docusate Sodium (Colace -) 100 mg PO DAILY [facility] Last Admin: 07/28/19 09:29 Dose: 100 mg Enoxaparin Sodium (Lovenox -) 80 mg SQ BID [facility] Last Admin: 07/28/19 09:30 Dose: 80 mg Ferrous Sulfate (Feosol -) 325 mg PO DAILY [facility] Last Admin: 07/28/19 09:29 Dose: 325 mg Insulin Aspart (Novolog Vial Sliding Scale -) 1 vial SQ TIDAC [facility]; Protocol Last Admin: 07/28/19 06:55 Dose: Not Given Silver Sulfadiazine (Silvadene -) 1 applic TP DAILY [facility] Last Admin: 07/28/19 09:31 Dose: 1 applic - Objective Vital Signs: Vital Signs Temperature 98.7 F 07/28/19 05:00 Pulse Rate 78 07/28/19 05:00 Respiratory Rate 20 07/28/19 05:00 Blood Pressure 107/50 L 07/28/19 05:00 O2 Sat by Pulse Oximetry (%) 95 07/27/19 21:00 Constitutional: Yes: Well Nourished, Calm Eyes: Yes: WNL HENT: Yes: WNL Neck: Yes: WNL Cardiovascular: Yes: Regular Rate and Rhythm, S1, S2 Respiratory: Yes: Diminished Gastrointestinal: Yes: Normal Bowel Sounds, Soft Extremities: Yes: WNL Edema: No Labs: CBC, BMP 07/28/19 08:14 INR, PTT Problem List - Problems (1) Colon cancer Code(s): C18.9 - MALIGNANT NEOPLASM OF COLON, UNSPECIFIED (2) Pleural effusion Code(s): J90 - PLEURAL EFFUSION, NOT ELSEWHERE CLASSIFIED (3) Pulmonary embolism Code(s): I26.99 - OTHER PULMONARY EMBOLISM WITHOUT ACUTE COR PULMONALE (4) HTN (hypertension) Code(s): I10 - ESSENTIAL (PRIMARY) HYPERTENSION Assessment/Plan A/P Acute Pulmonary Embolism Mod-Large Right Pleural Effusion S/P Pleur-x insertion Atelectasis Metastatic Colon Ca LV Diastolic Dysfunction HTN DM - anticoagulation with lovenox - O2 to keep spO2 >90% - when ready for discharge, check ambulatory SpO2 on room air to assess for home O2 Problem List - Problems (1) Pulmonary embolism Code(s): I26.99 - OTHER PULMONARY EMBOLISM WITHOUT ACUTE COR PULMONALE
[2019-07-28 15:41] VITALS: BP 128/57; PULSE 76; TEMP 97.4
== END 2019-07-28 17:55 | DRG 374 ==
LOC: JER 02:31 → JERBED 08:25 → J5S 11:02
PROVIDERS: ADMIT Internal Medicine; ATTEND Internal Medicine
PROC: 0WH933Z Insertion of Infusion Device into Right Pleural Cavity, Percutaneous Approach (ICD-10-PCS; principal; 2019-07-23)
DX: C18.9 Malignant neoplasm of colon, unspecified (principal); I26.99 Other pulmonary embolism without acute cor pulmonale; J96.91 Respiratory failure, unspecified with hypoxia; C78.7 Secondary malignant neoplasm of liver and intrahepatic bile duct; N17.9 Acute kidney failure, unspecified; J98.11 Atelectasis; J91.0 Malignant pleural effusion; I50.32 Chronic diastolic (congestive) heart failure; N39.0 Urinary tract infection, site not specified; E11.9 Type 2 diabetes mellitus without complications; E04.1 Nontoxic single thyroid nodule; I11.0 Hypertensive heart disease with heart failure; B95.2 Enterococcus as the cause of diseases classified elsewhere; D63.8 Anemia in other chronic diseases classified elsewhere; L89.152 Pressure ulcer of sacral region, stage 2
CPT/HCPCS: 32550; 36415; 71045-TC-FY; 71046-TC-FY; 71275-TC; 74177-TC; 74182-TC; 76705-TC; 76998-TC; 80048; 80053; 81003; 82248; 82728; 82962; 83036; 83540; 83550; 83690; 83735; 83880; 84484; 85025; 85027; 85044; 85610; 85730; 87086; 87186; 93005; 93010; 93970-TC; 94010; 94761; 97116-GP; 97162-GP; 99284-25; A9579; C1729; C1769; C1894; J1644; J7030

== ENCOUNTER 2019-08-09 13:26 | Inpatient (IN) | payer OTHER ==
--- NOTE | 2019-08-09 14:27 | PDOC ---
History of Present Illness - General Chief Complaint: Altered Mental Status Stated Complaint: Altered Mental Status Time Seen by Provider: 08/09/19 14:02 History Source: Detention Records Exam Limitations: Clinical Condition - History of Present Illness Initial Comments: 08/09/19 15:24 Patient is 84F with history of HTN, CHF, DM, metastatic colon cancer with liver involvement, malignant pleural effusions, PE (on lovenox) here today for altered mental status. [facility] reports that she has been increasingly less communicative for the past 3 days. She was started empirically on zosyn which caused some initial improvement, but her mental status then worsened over the weekend. Past History - Past Medical History Allergies/Adverse Reactions: Allergies Allergy/AdvReac Type Severity Reaction Status Date / Time No Known Allergies Allergy Verified 08/09/19 14:01 Home Medications: Ambulatory Orders Amlodipine Besylate 10 mg PO DAILY 10/02/18 Aspirin 81 mg PO DAILY 10/02/18 Sitagliptin Phosphate [Januvia] 100 mg PO DAILY 10/02/18 Atenolol [Tenormin] 25 mg PO DAILY 07/05/19 Docusate Sodium [Colace -] 100 mg PO DAILY capsule 07/28/19 Enoxaparin [Lovenox -] 80 mg SQ BID disp.syrin 07/28/19 Ferrous Sulfate [Feosol] 325 mg PO DAILY ud 07/28/19 Insulin Sliding Scale [Novolog Vial Sliding Scale -] 1 vial SQ TIDAC units Silver Sulfadiazine 1% Top Cr [Silvadene -] 1 applic TP DAILY jar 07/28/19 Anemia: No Asthma: No Cancer: Yes (RECTAL MASS;LIVER METS;GASTRIC NEOPLASM) Cardiac Disorders: No CVA: No COPD: No CHF: No Dementia: No Diabetes: Yes GI Disorders: Yes (metastatic colon ca) Disorders: Yes (COLON POLYPS) HTN: Yes Hypercholesterolemia: No Liver Disease: No Seizures: No Thyroid Disease: Yes (THYROID NODULE) - Surgical History Abdominal Surgery: Yes (COLON ANASTOMOSIS) Cardiac Surgery: No Cholecystectomy: Yes Lung Surgery: No Neurologic Surgery: No Orthopedic Surgery: No - Psycho Social/Smoking Cessation Hx Smoking History: Never smoked Have you smoked in the past 12 months: No Information on smoking cessation initiated: No Hx Alcohol Use: No Drug/Substance Use Hx: No Substance Use Type: None Hx Substance Use Treatment: No Review of Systems - Review of Systems Able to Perform ROS?: No (2/2 patient condition) *Physical Exam - Vital Signs Last Vital Signs Temp Pulse Resp BP Pulse Ox 96.4 F L 66 18 117/60 100 08/09/19 13:30 08/09/19 13:30 08/09/19 13:30 08/09/19 13:30 08/09/19 13:30 - Physical Exam Comments: 08/09/19 15:31 GENERAL: Obtunded, ill appearing HEAD: No signs of trauma, normocephalic, atraumatic EYES: PERRLA, EOMI, sclera icteric ENT: Auricles normal inspection, nares patent, oropharynx clear without exudates. Moist mucosa NECK: Normal ROM, supple, no lymphadenopathy, JVD, or masses LUNGS: No distress, clear to auscultation bilaterally HEART: Regular rate and rhythm, normal S1 and S2, no murmurs, rubs or gallops, peripheral pulses normal and equal bilaterally. ABDOMEN: Diffusely tender, moans to light palpation EXTREMITIES: Normal inspection, Normal range of motion, no edema. No clubbing or cyanosis. NEUROLOGICAL: Cranial nerves II through XII grossly intact. Moves all extremities SKIN: Warm, Dry, normal turgor, no rashes or lesions noted. ED Treatment Course - LABORATORY CBC & Chemistry Diagram: 08/09/19 15:14 08/09/19 15:14 - ADDITIONAL ORDERS Additional order review: Laboratory Results 08/09/19 13:44 POC Glucometer 233 08/09/19 13:44 POC Glucometer 233 Medical Decision Making - Medical Decision Making 08/09/19 15:35 Patient is 84F with history of metastatic colon ca, htn, chf, pe (on lovenox) here today with AMS. Mildly hypothermic, BP map of 60 after initial triage, fluid responsive. Septic workup initiated, suspect ascending cholangitis, sbo, mesenteric ischemia, uti. Started on meropenem given zosyn failure. Will admit, floors v icu. Full code. Granddaughter - Alexandru Luna ([phone], ) Son Dakota Luna ) 08/09/19 16:18 Case discussed with Alexandru Luna at [phone], and she is the health care proxy. Patient chose not to treat colon cancer upon finding further mets. Ms Luna states that the patient would have wanted to a natural from the progression of her cancer. She stated the patient would have liked to be DNR, DNI and not wanted invasive measures like surgery, central lines or pressors. She states the patient would have wanted antibiotics and pain control. CBC stable Trop negative Lactate 4.4 Tbili has doubled. D/w Dr Sutton, accepted to m/s. 08/09/19 16:51 EKG shows NSR with rate of 68. No st elevations/depressions. Normal axis. Normal intervals. No significant t wave abnormalities. Low voltages. Discharge - Discharge Information Problems reviewed: Yes Condition: Poor - Admission Yes - Follow up/Referral - Patient Discharge Instructions - Post Discharge Activity
[2019-08-09] MEDS ORDERED: SODIUM CHLORIDE 1,000 ML IV STA (14:38)
[2019-08-09] MEDS ORDERED: MEROPENEM 1 GM in DEXTROSE 5%-WATER 100 ML IVPB ONE (14:43)
[2019-08-09 15:32] LABS: HEMATOCRIT 35.5 % (32.4-45.2); HEMOGLOBIN 11.6 GM/dL (10.7-15.3); MCH 27.7 pg (25.7-33.7); MCHC 32.7 g/dl (32.0-36.0); MEAN CELL VOLUME 84.6 fl (80-96); MEAN PLT VOLUME 7.9 fl (7.5-11.1); PLATELET COUNT 247 K/MM3 (134-434); RBC 4.19 M/mm3 (3.60-5.2); RDW 23.5 % (11.6-15.6); WHITE BLOOD COUNT 10.4 K/mm3 (4.0-10.0)
[2019-08-09 15:45] LABS: VENOUS PC02 61.4 mmHg (38-52); VENOUS PH 7.25 (7.31-7.41)
[2019-08-09 15:47] LABS: VENOUS PO2 < 49 mmHg (28-48)
[2019-08-09 15:55] LABS: INR 1.44 (0.83-1.09)
[2019-08-09 15:57] LABS: ACTIVATED PTT 51.5 SECONDS (25.2-36.5)
[2019-08-09 16:18] LABS: ALBUMIN 1.7 g/dl (3.4-5.0); BILIRUBIN,TOTAL 4.3 mg/dL (0.2-1); BLOOD UREA NITROGEN 96.4 mg/dL (7-18); CALCIUM 8.8 mg/dL (8.5-10.1); CREATININE 2.5 mg/dL (0.55-1.3); TOT PROT 5.5 g/dl (6.4-8.2)
[2019-08-09] MEDS ORDERED: ACETAMINOPHEN 1000 MG/100 ML VIAL (NON FORMULARY) IVPB PRN (16:26)
--- NOTE | 2019-08-09 16:27 | HP ---
Admitting History and Physical - Admission Chief Complaint: altered mental status History of Present Illness: Patient is 84F with history of HTN, CHF, DM, metastatic colon cancer with liver involvement, malignant pleural effusions, PE (on lovenox) here today for altered mental status. [facility] reports that she has been increasingly less communicative for the past 3 days. She was started empirically on zosyn which caused some initial improvement, but her mental status then worsened over the weekend. History Source: Medical Record - Past Medical History Cardiovascular: Yes: HTN Gastrointestinal: Yes: Cancer Endocrine: Yes: Diabetes Mellitus - Smoking History Smoking history: Never smoked Have you smoked in the past 12 months: No - Alcohol/Substance Use Hx Alcohol Use: No - Social History History of Recent Travel: No Home Medications - Allergies Allergies/Adverse Reactions: Allergies Allergy/AdvReac Type Severity Reaction Status Date / Time No Known Allergies Allergy Verified 08/09/19 14:01 - Home Medications Home Medications: Ambulatory Orders Amlodipine Besylate 10 mg PO DAILY 10/02/18 Aspirin 81 mg PO DAILY 10/02/18 Sitagliptin Phosphate [Januvia] 100 mg PO DAILY 10/02/18 Atenolol [Tenormin] 25 mg PO DAILY 07/05/19 Docusate Sodium [Colace -] 100 mg PO DAILY capsule 07/28/19 Enoxaparin [Lovenox -] 80 mg SQ BID disp.syrin 07/28/19 Ferrous Sulfate [Feosol] 325 mg PO DAILY ud 07/28/19 Insulin Sliding Scale [Novolog Vial Sliding Scale -] 1 vial SQ TIDAC units Silver Sulfadiazine 1% Top Cr [Silvadene -] 1 applic TP DAILY jar 07/28/19 Review of Systems Unable to obtain ROS, reason: moaning Physical Examination Vital Signs: Vital Signs Temperature 96.4 F L 08/09/19 13:30 Pulse Rate 98 H 08/09/19 15:44 Respiratory Rate 08/09/19 15:44 Blood Pressure 109/72 08/09/19 15:44 O2 Sat by Pulse Oximetry (%) 99 08/09/19 15:44 Constitutional: Yes: Mild Distress Cardiovascular: Yes: Regular Rate and Rhythm, S1, S2 Respiratory: Yes: CTA Bilaterally Gastrointestinal: Yes: Distention, Hepatomegaly Edema: No Labs: CBC, BMP 08/09/19 15:14 08/09/19 15:14 Imaging - Results Ultrasound: Pending Problem List - Problems (1) Change in mental state Assessment/Plan: toxic metabolic encephalopathy ivf trend lactic acid broad iv abx ID and renal eval head Ct scan UA and urine cx blood cultures dnr/dni no pressors no central lines no surgeries liver sonon vivienne bgm [id number] Code(s): R41.82 - ALTERED MENTAL STATUS, UNSPECIFIED (2) NABIL (acute kidney injury) Assessment/Plan: ivf Code(s): N17.9 - ACUTE KIDNEY FAILURE, UNSPECIFIED (3) Elevated LFTs Assessment/Plan: liver sonogram pending avoid hepatotoxic medications gi consult Code(s): R94.5 - ABNORMAL RESULTS OF LIVER FUNCTION STUDIES
[2019-08-09] MEDS: SODIUM CHLORIDE 1,000 ML IV SCH (16:30)
--- NOTE | 2019-08-09 16:48 | PDOC ---
Documentation entered by Roxane Anderson SCRIBE, acting as scribe for Fred Smith MD. Fred Smith MD: This documentation has been prepared by the Justin sanders Nirvannie, SCRIBE, under my direction and personally reviewed by me in its entirety. I confirm that the documentation accurately reflects all work, treatment, procedures, and medical decision making performed by me. Attending Attestation - Resident Resident Name: Gabino Richter - ED Attending Attestation I have performed the following: I have examined & evaluated the patient, The case was reviewed & discussed with the resident, I agree w/resident's findings & plan, Exceptions are as noted - HPI HPI: 08/09/19 16:23 The patient is an 84 year old female, with a significant past medical history of HTN, CHF, colon cancer, DM, metastatic colon cancer with liver involvement, malignant pleural effusions, and PE (on lovenox), who presents to the emergency department via EMS from [facility] with 3 days of lethargy, confusion, and . As per facility, pt was found to have an elevated HR and was started on Zosyn last Friday. While in the ED, patient is not alert to place, is confused, and can not contribute to history. . Allergies: NKDA - Physicial Exam PE: 08/09/19 16:28 agree with resident exam - Medical Decision Making 08/09/19 16:33 84-year-old female with multiple medical problems including metastatic colon cancer presents emergency department with increasing lethargy, found to be hypothermic, lethargic, and jaundiced with right upper quadrant pain. We are concerned for asending cholangitis. Patient's labs are consistent with this as her bilirubin has doubled, her alk phos is increasing, and she has known extensive hepatic metastasis. Notably, her kidney function has also deteriorated compared to labs from a few weeks ago. Patient does not appear to have capacity at this time - as such he spoke with her granddaughter Xuan who identifies as for healthcare proxy. She reports that it would not be consistent with the patient's goals of care to have any chest compressions, and intubation/assisted ventilation, central lines, or any extensive procedures as she refused treatment for her colon cancer once she found out it was metastatic. They do believe she would be amenable to fluids and antibiotics. As such patient has been broadened to meropenem, we have also added vancomycin for more broad coverage. We have initiated fluids for resuscitation. We have signed DNR/DNI forms and there is a copy in the chart. Case has been discussed with Dr. Sutton, who admits for the patient's primary care physician Dr. Becerra. Patient has been accepted for admission. Case discussed in detail with admitting physician including history, physical exam and ancillary studies. Admitting physician has assumed care for the patient, will follow all pending diagnostics and will complete the evaluation and treatment.
[2019-08-09 17:23] LABS: ANISOCYTOSIS 3+; PLATELET ESTIMATE ADEQUATE; TARGET CELLS 1+
[2019-08-09 21:39] LABS: EPI CELLS 9.8 /HPF (0-5/HPF); HYALINE CASTS 54 /lpf (0-8); URINE APPEARANCE TURBID; URINE BILIRUBIN 2+ (NEGATIVE); URINE COLOR DK YELLOW; URINE GLUCOSE (UA) TRACE (NEGATIVE); URINE KETONE NEGATIVE (NEGATIVE); URINE LEUK ESTERASE NEGATIVE (NEGATIVE); URINE NITRITE NEGATIVE (NEGATIVE); URINE PROTEIN 1+ (NEGATIVE)
[2019-08-09 21:52] LABS: URINE BACTERIA 0.8 /hpf (NEGATIVE); URINE RBC 6 /hpf (0-4); URINE WBC 47.8 /hpf (0-5)
[2019-08-09] MEDS: INSULIN SLIDING SCALE (NOVOLOG) 1 VIAL SQ SCH (22:44)
[2019-08-09] MEDS ORDERED: HEPARIN NA (PORCINE) 5,000 UNITS/ML 1ML VIAL ONE (22:45)
[2019-08-09] MEDS: HEPARIN NA (PORCINE) 5,000 UNITS/ML 1ML VIAL SQ SCH (22:47)
[2019-08-10] MEDS ORDERED: ACETAMINOPHEN 1000 MG/100 ML VIAL (NON FORMULARY) IVPB ONE ×2 (05:55→17:57)
[2019-08-10] MEDS ORDERED: MORPHINE SULFATE 2 MG/ML VIAL IVPUSH ONE (05:58)
[2019-08-10] MEDS ORDERED: INSULIN (NOVOLOG) ASPART 100 UNITS/ML 10ML VIAL ONE ×2 (07:07→18:18)
[2019-08-10] MEDS: INSULIN SLIDING SCALE (NOVOLOG) 1 VIAL SQ SCH ×4 (07:16→22:07)
[2019-08-10 08:25] VITALS: BMI 28.4
[2019-08-10] MEDS ORDERED: PT OWN MED DRAWER 7, Y5N ONE (08:46)
--- NOTE | 2019-08-10 09:01 | CON.GI ---
Consult - History of Present Illness History of Present Illness: GI CONSULT DICTATED - Past Medical History Cardio/Vascular: Yes: HTN Gastrointestinal: Yes: Cancer ...: No Endocrine: Yes: Diabetes Mellitus - Alcohol/Substance Use Hx Alcohol Use: No - Smoking History Smoking history: Never smoked Have you smoked in the past 12 months: No - Social History History of Recent Travel: No Home Medications - Allergies Allergies/Adverse Reactions: Allergies Allergy/AdvReac Type Severity Reaction Status Date / Time No Known Allergies Allergy Verified 08/09/19 14:01 - Home Medications Home Medications: Ambulatory Orders RX: Amlodipine Besylate 10 mg PO DAILY 10/02/18 RX: Aspirin 81 mg PO DAILY 10/02/18 RX: Atenolol [Tenormin] 25 mg PO DAILY 07/05/19 RX: Ferrous Sulfate [Feosol] 325 mg PO DAILY ud 07/28/19 Acetaminophen [Tylenol] 650 mg PO QID PRN 08/09/19 Enoxaparin Sodium [Lovenox] 80 mg SQ DAILY 08/09/19 Ondansetron HCl [Zofran] 4 mg PO QID PRN 08/09/19 traMADol HCL [Ultram] 50 mg PO Q6H PRN 08/09/19 Physical Exam-GI Vital Signs: Vital Signs Temperature 97.5 F L 08/10/19 06:24 Pulse Rate 75 08/10/19 06:24 Respiratory Rate 18 08/10/19 06:24 Blood Pressure 110/75 08/10/19 06:24 O2 Sat by Pulse Oximetry (%) 95 08/10/19 05:00 Labs: CBC, BMP 08/09/19 15:14 08/09/19 15:14 INR, PTT INR 1.44 (0.83-1.09) H 08/09/19 15:14
[2019-08-10 10:17] LABS: HEMATOCRIT 32.1 % (32.4-45.2); HEMOGLOBIN 10.6 GM/dL (10.7-15.3); MCH 27.8 pg (25.7-33.7); MCHC 33.1 g/dl (32.0-36.0); MEAN CELL VOLUME 83.8 fl (80-96); MEAN PLT VOLUME 8.1 fl (7.5-11.1); PLATELET COUNT 197 K/MM3 (134-434); RBC 3.83 M/mm3 (3.60-5.2); RDW 24.4 % (11.6-15.6); WHITE BLOOD COUNT 10.5 K/mm3 (4.0-10.0)
--- NOTE | 2019-08-10 10:36 | EKG ---
Test Reason : Blood Pressure : / mmHG Vent. Rate : 068 BPM Atrial Rate : 068 BPM P-R Int : 132 ms QRS Dur : 086 ms QT Int : 410 ms P-R-T Axes : 055 -01 063 degrees QTc Int : 435 ms SINUS RHYTHM WITH PREMATURE ATRIAL COMPLEXES LOW VOLTAGE QRS BORDERLINE ECG Confirmed by Wade Leblanc MD ([id number]) on 08/10/2019 10:36:05 AM Referred By: Confirmed By:Wade Leblanc MD
[2019-08-10 10:37] LABS: INR 1.59 (0.83-1.09); PROTHROMBIN TIME (PATIENT) 18.9 SEC (9.7-13.0)
[2019-08-10] MEDS: HEPARIN NA (PORCINE) 5,000 UNITS/ML 1ML VIAL SQ SCH ×2 (10:38→22:06)
[2019-08-10 10:53] LABS: ALBUMIN 1.5 g/dl (3.4-5.0); BILIRUBIN,TOTAL 4.4 mg/dL (0.2-1); BLOOD UREA NITROGEN 100.4 mg/dL (7-18); CREATININE 2.6 mg/dL (0.55-1.3); MAGNESIUM 2.4 mg/dL (1.8-2.4); POTASSIUM 4.1 mmol/L (3.5-5.1); TOT PROT 4.9 g/dl (6.4-8.2)
--- NOTE | 2019-08-10 11:18 | PN ---
Progress Note, Physician Chief Complaint: AMS Metastatic Colon Ca History of Present Illness: NAD intermittent moaning - Current Medication List Current Medications: Active Medications Heparin Sodium (Porcine) (Heparin -) 5,000 unit SQ BID [facility] Last Admin: 08/10/19 10:38 Dose: 5,000 unit Sodium Chloride (Normal Saline -) 1,000 mls @ 75 mls/hr IV ASDIR [facility] Last Admin: 08/09/19 16:30 Dose: 75 mls/hr Insulin Aspart (Novolog Vial Sliding Scale -) 1 vial SQ ACHS [facility]; Protocol Last Admin: 08/10/19 07:16 Dose: 4 units - Objective Vital Signs: Vital Signs Temperature 96.9 F L 08/10/19 09:26 Pulse Rate 77 08/10/19 09:26 Respiratory Rate 20 08/10/19 09:26 Blood Pressure 94/35 L 08/10/19 09:26 O2 Sat by Pulse Oximetry (%) 95 08/10/19 05:00 Constitutional: Yes: Well Nourished, No Distress, Calm Cardiovascular: Yes: Regular Rate and Rhythm Respiratory: Yes: Regular, CTA Bilaterally Gastrointestinal: Yes: Normal Bowel Sounds, Soft Genitourinary: Yes: Incontinence Musculoskeletal: Yes: Muscle Weakness Extremities: Yes: WNL Edema: No Peripheral Pulses WNL: Yes Neurological: Yes: Alert, Pre-Existing Deficit Psychiatric: Yes: Alert Labs: CBC, BMP 08/10/19 10:00 08/10/19 10:00 INR, PTT INR 1.59 (0.83-1.09) H 08/10/19 10:00 Problem List - Problems (1) Metastatic colon cancer in female Assessment/Plan: -CT abd reviewed -GI consult -Palliative care consult Problems reviewed: Yes Code(s): C18.9 - MALIGNANT NEOPLASM OF COLON, UNSPECIFIED (2) Change in mental state Assessment/Plan: -CT head negative -Cultures pending -received zosyn in ER -afebrile, check rectal temp -mild leukocystosis -ID consult pending Problems reviewed: Yes Code(s): R41.82 - ALTERED MENTAL STATUS, UNSPECIFIED (3) NABIL (acute kidney injury) Assessment/Plan: -Nephrology consult -Monitor trend -Continue IVF Problems reviewed: Yes Code(s): N17.9 - ACUTE KIDNEY FAILURE, UNSPECIFIED Assessment/Plan see problem list Palliative consult for goals of care
--- NOTE | 2019-08-10 14:27 | CON.ID ---
Consult Consult Specialty:: infectious disease Referred by:: dr braga Reason for Consultation:: lethargy - History of Present Illness Chief Complaint: lethargy History of Present Illness: 84 yo with metastatic coloncancer has refused further oncology care, recent PE hospitalized 07/21 to 07/28 for PE, now admitted for [id number] she was started on zosyn at the CT on 08/06- not sure why continued lethargy in acute renal failure as well asked to see patient is dnr/dni- unable to give any history per ER notes plans are for ivf and antibiotics if needed - History Source History Provided By: Medical Record Limitations to Obtaining History: Clinical Condition - Past Medical History Cardio/Vascular: Yes: HTN Pulmonary: Yes: Pulmonary Embolus Gastrointestinal: Yes: Cancer (colon) ...: No Endocrine: Yes: Diabetes Mellitus, Other (multinodular goiter) - Past Surgical History Past Surgical History: Yes: Cholecystectomy, (times 2) Additional Surgical History: sigmoidectomy - Alcohol/Substance Use Hx Alcohol Use: No - Smoking History Smoking history: Never smoked Have you smoked in the past 12 months: No - Social History Usual Living Arrangement: [facility] ADL: Support Services History of Recent Travel: No Home Medications - Allergies Allergies/Adverse Reactions: Allergies Allergy/AdvReac Type Severity Reaction Status Date / Time No Known Allergies Allergy Verified 08/09/19 14:01 - Home Medications Home Medications: Ambulatory Orders Amlodipine Besylate 10 mg PO DAILY 10/02/18 Aspirin 81 mg PO DAILY 10/02/18 Atenolol [Tenormin] 25 mg PO DAILY 07/05/19 Ferrous Sulfate [Feosol] 325 mg PO DAILY ud 07/28/19 Acetaminophen [Tylenol] 650 mg PO QID PRN 08/09/19 Enoxaparin Sodium [Lovenox] 80 mg SQ DAILY 08/09/19 Ondansetron HCl [Zofran] 4 mg PO QID PRN 08/09/19 traMADol HCL [Ultram] 50 mg PO Q6H PRN 08/09/19 Family Medical History Family History: Unable to Obtain Review of Systems - Review of Systems Constitutional: reports: Lethargy. denies: Fever Physical Exam Vital Signs: Vital Signs Temperature 97.6 F 08/10/19 11:30 Pulse Rate 77 08/10/19 09:26 Respiratory Rate 20 08/10/19 09:26 Blood Pressure 94/35 L 08/10/19 09:26 O2 Sat by Pulse Oximetry (%) 95 08/10/19 05:00 Constitutional: Yes: Mild Distress (moans when you move her, mutters a few words ) Eyes: Yes: WNL HENT: Yes: Atraumatic, Normocephalic Neck: Yes: Supple Cardiovascular: Yes: Regular Rate and Rhythm Respiratory: Yes: Regular, CTA Bilaterally, Other (right pleurx catheter) Gastrointestinal: Yes: Soft. No: Tenderness, Tenderness, Rebound Extremities: Yes: WNL Edema: No Wound/Incision: Yes: Other (sacral ulcer stage 2 clean, no drainage) Labs: CBC, BMP 08/10/19 10:00 08/10/19 10:00 cultures pending Imaging - Results Chest X-ray: Report Reviewed, Image Reviewed (atelectasis) Cat Scan: Report Reviewed (extensive lever metastases, extensive bone mets) Ultrasound: Report Reviewed (no ductal dilatation) Problem List - Problems (1) Lethargy Code(s): R53.83 - OTHER FATIGUE (2) Acute renal failure Code(s): N17.9 - ACUTE KIDNEY FAILURE, UNSPECIFIED (3) Metastatic colon cancer in female Code(s): C18.9 - MALIGNANT NEOPLASM OF COLON, UNSPECIFIED (4) Elevated lactic acid level Code(s): R79.89 - OTHER SPECIFIED ABNORMAL FINDINGS OF BLOOD CHEMISTRY Assessment/Plan lethargy with acute renal failure with extensive metastatic colon cancer-has been on zosyn for 72 hours prior to admission check ammonia level check cultures-pending continue ivf not much to offer at this time renal evaluation pending lactic acidosis may be on the basis of her extensive malignancy GI evaluation not yet completed- received meropenem in Ed will treat with cefepime adjusted for renal failure pending cultures would ask palliative care to see pstient
[2019-08-10] MEDS: SODIUM CHLORIDE 1,000 ML IV SCH ×2 (16:30→18:30)
--- NOTE | 2019-08-10 18:02 | CONSULT ---
Consult Consult Specialty:: Nephrology Reason for Consultation:: nabil and lactic acidosis - History of Present Illness Chief Complaint: altered mental status History of Present Illness: Pt is an 84 year old female with pmhx of htn, chf, dm and metastatic colon cancer with liver involvement who presents to the ER with altered mental status. Pt is lethargic and unable to give history. She was found to be in renal failure and to have lactic acidosis. I was called to evaluate her. She does have history of malignant effusions as well. - History Source History Provided By: Medical Record - Past Medical History Cardio/Vascular: Yes: HTN Pulmonary: Yes: Pulmonary Embolus Gastrointestinal: Yes: Cancer (colon) ...: No Endocrine: Yes: Diabetes Mellitus, Other (multinodular goiter) - Past Surgical History Past Surgical History: Yes: Cholecystectomy, (times 2) Additional Surgical History: sigmoidectomy - Alcohol/Substance Use Hx Alcohol Use: No - Smoking History Smoking history: Never smoked Have you smoked in the past 12 months: No - Social History Usual Living Arrangement: [facility] ADL: Support Services History of Recent Travel: No Home Medications - Allergies Allergies/Adverse Reactions: Allergies Allergy/AdvReac Type Severity Reaction Status Date / Time No Known Allergies Allergy Verified 08/09/19 14:01 - Home Medications Home Medications: Ambulatory Orders Amlodipine Besylate 10 mg PO DAILY 10/02/18 Aspirin 81 mg PO DAILY 10/02/18 Atenolol [Tenormin] 25 mg PO DAILY 07/05/19 Ferrous Sulfate [Feosol] 325 mg PO DAILY ud 07/28/19 Acetaminophen [Tylenol] 650 mg PO QID PRN 08/09/19 Enoxaparin Sodium [Lovenox] 80 mg SQ DAILY 08/09/19 Ondansetron HCl [Zofran] 4 mg PO QID PRN 08/09/19 traMADol HCL [Ultram] 50 mg PO Q6H PRN 08/09/19 Family Medical History Family History: Unable to Obtain Review of Systems Unable to obtain ROS, reason: lethargic Physical Exam Vital Signs: Vital Signs Temperature 98.6 F 08/10/19 14:00 Pulse Rate 91 H 08/10/19 14:00 Respiratory Rate 18 08/10/19 14:00 Blood Pressure 97/50 L 08/10/19 14:00 O2 Sat by Pulse Oximetry (%) 95 08/10/19 05:00 Constitutional: Yes: Calm Eyes: Yes: Conjunctiva Clear HENT: Yes: Atraumatic Neck: Yes: Supple Cardiovascular: Yes: S1, S2 Respiratory: Yes: On Nasal O2 Gastrointestinal: Yes: Soft, Abdomen, Obese Renal/: Yes: Incontinence Musculoskeletal: Yes: Muscle Weakness Neurological: Yes: Lethargy Labs: CBC, BMP 08/10/19 10:00 08/10/19 10:00 Imaging - Results Cat Scan: Report Reviewed Problem List - Problems (1) Acute renal failure Code(s): N17.9 - ACUTE KIDNEY FAILURE, UNSPECIFIED (2) Change in mental state Code(s): R41.82 - ALTERED MENTAL STATUS, UNSPECIFIED (3) NABIL (acute kidney injury) Code(s): N17.9 - ACUTE KIDNEY FAILURE, UNSPECIFIED Assessment/Plan Current Medications Generic Name Dose Route Start Last Admin Trade Name Freq PRN Reason Stop Dose Admin Heparin Sodium (Porcine) 5,000 unit 08/09/19 22:00 08/10/19 10:38 Heparin - SQ 5,000 unit BID [facility]ACK Administration Sodium Chloride 1,000 mls @ 75 mls/hr 08/09/19 16:30 08/09/19 16:30 Normal Saline - IV 75 mls/hr ASDIR ZACK Administration Insulin Aspart 1 vial 08/09/19 22:00 08/10/19 12:34 Novolog Vial Sliding Scale - SQ 2 units ACHS ZACK Administration Protocol Impression 1. NABIL 2. metastatic colon cancer 3. chf 4. dm 5. malignant effusions 6. lactic acidosis Plan - decrease fluids as she is overloaded - lactic acidosos likely from malignancy - monitor lytes - check ultasound kidneys and bladder - may need lasix once renal function improves - check ua and lytes - check urine eos - prognosis is poor
--- NOTE | 2019-08-10 22:20 | CONS ---
DATE OF CONSULTATION: DATE OF DICTATION: 08/10/2019 HISTORY OF PRESENT ILLNESS: The patient is an 84-year-old female with past medical history of hypertension, CHF, diabetes, metastatic colon cancer with liver metastasis, malignant pleural effusions, pulmonary embolism, on Lovenox who was sent from [facility] with altered mental status, decreased communicative over the past couple of days. She was empirically started on antibiotics at the time with some improvement; however, her mental status continued to worsen. She does not offer much history during my examination today. PAST MEDICAL/SURGICAL HISTORY: As listed in the HPI. ALLERGIES: No known drug allergies. SOCIAL HISTORY: She does not smoke, drink, or use drugs. FAMILY HISTORY: Unable to obtain. HOME MEDICATIONS: Reviewed, including amlodipine, aspirin, Januvia, Tenormin, Colace, Lovenox, iron, NovoLog. REVIEW OF SYSTEMS: Unable to obtain secondary to her underlying medical status. PHYSICAL EXAMINATION: Vital Signs: Temperature 98, pulse 91, respiratory rate of 12, blood pressure 97/50, oxygen saturation 98% on supplemental oxygen. General: In no acute distress, moans, does not respond appropriately to questions. Cardiovascular: S1, S2, regular rate and rhythm. Lungs: Clear bilaterally. Abdomen: Soft, without any tenderness. Patient does moan and groan during the entire examination. Extremities: Positive for edema. Neurologic: She does not follow commands. Responds to painful stimuli. LABORATORIES: White blood cell count 10.5, hemoglobin 10, hematocrit 32, MCV 83 , platelet count 197. INR 1.59. Sodium 134, potassium 4.1, BUN 100, creatinine 2.6, lactic acid is 4.6, total bilirubin 4.4, AST 301, ALT 601, alkaline phosphatase 702. Ammonia level is 49. Cultures are, so far, negative. She had a CT scan of the abdomen and pelvis on August 09, which reveals increased bilateral flank subcutaneous edema, possible interval development of mild common bile duct thickening is seen within the current diameter of 1 cm. No intrahepatic biliary ductal dilatation. MRCP was considered. Hepatic metastasis, right pleural effusion, and small to moderate amount of ascites. Osseous metastatic neoplastic disease. IMPRESSION: 1. Colon cancer with metastasis to the liver. She likely has metastatic disease contributing to her abnormal liver tests. 2. Altered mental status. 3. Abnormal lactic acid. Underlying infectious etiology cannot be excluded. Her cultures are, so far, negative and she is on antibiotics. I doubt her change in mental status is secondary to deneen systemic encephalopathy;She is likely deteriorating secondary to her underlying malignant process. RECOMMENDATION: Palliative Care evaluation and Ethics evaluation regarding goals of care. Consider MRI brain to exclude metastatic disease. Continue antibiotics. MRCP if tolerated . DO EMMA [id number] MTDD
[2019-08-11] MEDS ORDERED: CEFEPIME 1 GM in DEXTROSE 5%-WATER 100 ML IVPB SCH (05:15)
[2019-08-11] MEDS ORDERED: DEXTROSE 5%-WATER 100 ML IVPB ONE (06:18)
[2019-08-11] MEDS ORDERED: CEFEPIME HCL 1 GM VIAL (RESTRICTED TO ID) ONE (06:18)
[2019-08-11] MEDS: SODIUM CHLORIDE 1,000 ML IV SCH (06:24)
[2019-08-11] MEDS: INSULIN SLIDING SCALE (NOVOLOG) 1 VIAL SQ SCH ×2 (07:07→11:18)
--- NOTE | 2019-08-11 10:38 | PN ---
Progress Note, Physician Chief Complaint: AMS Metastatic Colon Ca History of Present Illness: Daughter at bedside Called in by RN that patient passed. Pt pronounced at 11:29 am. - Current Medication List Current Medications: Active Medications Heparin Sodium (Porcine) (Heparin -) 5,000 unit SQ BID ZACK Last Admin: 08/10/19 22:06 Dose: 5,000 unit Sodium Chloride (Normal Saline -) 1,000 mls @ 40 mls/hr IV ASDIR ZACK Last Admin: 08/11/19 06:24 Dose: 40 mls/hr Cefepime HCl 1 gm/ Dextrose 100 mls @ 100 mls/hr IVPB Q24H [facility]; Protocol Last Admin: 08/11/19 06:23 Dose: 100 mls/hr Insulin Aspart (Novolog Vial Sliding Scale -) 1 vial SQ ACHS [facility]; Protocol Last Admin: 08/11/19 07:07 Dose: Not Given - Objective Vital Signs: Vital Signs Temperature 97.3 F L 08/11/19 06:00 Pulse Rate 84 08/11/19 06:00 Respiratory Rate 18 08/11/19 06:00 Blood Pressure 90/55 L 08/11/19 06:00 O2 Sat by Pulse Oximetry (%) 96 08/11/19 02:00 Labs: CBC, BMP 08/10/19 10:00 08/10/19 10:00 INR, PTT INR 1.59 (0.83-1.09) H 08/10/19 10:00 Problem List - Problems (1) Metastatic colon cancer in female Problems reviewed: Yes Code(s): C18.9 - MALIGNANT NEOPLASM OF COLON, UNSPECIFIED (2) Change in mental state Problems reviewed: Yes Code(s): R41.82 - ALTERED MENTAL STATUS, UNSPECIFIED (3) NABIL (acute kidney injury) Problems reviewed: Yes Code(s): N17.9 - ACUTE KIDNEY FAILURE, UNSPECIFIED (4) Hospice care Problems reviewed: Yes Assessment/Plan see problem list Grand daughter Xuan notified about patient's passing. Daughter remains at bedside.
[2019-08-11 10:54] VITALS: BP 95/56; TEMP 98
[2019-08-11] MEDS: HEPARIN NA (PORCINE) 5,000 UNITS/ML 1ML VIAL SQ SCH (11:18)
[2019-08-11 11:19] VITALS: PULSE 70
== END 2019-08-11 13:09 | disposition expired | DRG 70 ==
LOC: JER 13:26 → JERBED 16:28 → J5S 08-10 03:13
PROVIDERS: ADMIT Family Medicine; ATTEND Family Medicine
DX: G93.41 Metabolic encephalopathy (principal); I26.99 Other pulmonary embolism without acute cor pulmonale; N17.9 Acute kidney failure, unspecified; E87.2 Acidosis; I10 Essential (primary) hypertension; I50.9 Heart failure, unspecified; E11.9 Type 2 diabetes mellitus without complications; Z85.038 Personal history of other malignant neoplasm of large intestine; Z85.05 Personal history of malignant neoplasm of liver
CPT/HCPCS: 36415; 70450-TC; 71045-TC-FY; 74176-TC; 76705-TC; 76775-TC; 76856-TC; 80048; 80053; 81003; 82140; 82803; 82962; 83036; 83605; 83735; 84100; 84484; 85025; 85027; 85610; 85730; 86850; 86900; 86901; 87040; 87086; 93005; 93010; 99285-25; J0131; J1644; J7030